=== PATIENT | male | born 1970 | race Caucasian/White ===

== ENCOUNTER 2020-07-19 16:39 | Inpatient (IN) | payer OTHER, MEDICAID ==
[~2020-07-19] VITALS: Ht 180.3 cm; Wt 72.5 kg
[2020-07-19] MEDS ORDERED: HYDROcodone/acetaminophen 5mg/325mg tablet PO ONE (17:20)
[2020-07-19] MEDS ORDERED: ondansetron 4mg rapidly disintigrating tab PO ONE (17:20)
--- NOTE | 2020-07-19 17:30 | NUR ---
US tech at bedside for study as ordered.
[2020-07-19 18:37] LABS: BASOPHILS # (AUTO) 0.1 X10'3 (0-0.2); BASOPHILS % (AUTO) 1.2 % (0-1); EOSINOPHILS # (AUTO) 0.2 X10'3 (0-0.9); HEMATOCRIT 40.6 % (42.0-52.0); LYMPHOCYTES # (AUTO) 2.6 X10'3 (1.1-4.8); LYMPHOCYTES % (AUTO) 22.1 % (21-51); MEAN CORPUSCULAR HEMOGLOBIN 33.3 PG (27.0-31.0); MEAN CORPUSCULAR HGB CONC 34.4 g/dL (33.0-36.5); MEAN CORPUSCULAR VOLUME 96.7 FL (78-98); MONOCYTES # (AUTO) 0.5 X10'3 (0-0.9); NEUTROPHILS # (AUTO) 8.3 X10'3 (1.8-7.7); NEUTROPHILS % (AUTO) 70.7 % (42-75); PLATELET COUNT 188 X10'3 (140-440); RED CELL DISTRIBUTION WIDTH 13.3 % (11.5-14.5); WHITE BLOOD COUNT 11.7 X10'3 (4.5-11.0)
[2020-07-19 18:49] LABS: PARTIAL THROMBOPLASTIN TIME 29 SECONDS (22-32)
[2020-07-19 18:54] LABS: ALANINE AMINOTRANSFERASE 37 U/L (12-78); ALBUMIN 3.9 G/DL (3.4-5.0); ALBUMIN/GLOBULIN RATIO 1.3 (1.1-1.5); ALKALINE PHOSPHATASE 68 IU/L (46-116); ANION GAP 14 (8-16); ASPARTATE AMINO TRANSFERASE 24 U/L (10-37); BILIRUBIN,TOTAL 0.4 MG/DL (0.1-1.0); BLOOD UREA NITROGEN 9 MG/DL (7-18); BUN/CREATININE RATIO 6.8 (5.4-32.0); CALCIUM 8.2 MG/DL (8.5-10.1); CHLORIDE 102 MMOL/L (99-107); CREATININE 1.33 MG/DL (0.60-1.10); GLUCOSE 87 MG/DL (70-104); POTASSIUM 3.4 MMOL/L (3.5-5.1); SODIUM 138 MMOL/L (135-145); TOTAL CARBON DIOXIDE 21.8 MMOL/L (24-32); eGFR 56 ML/MIN
[2020-07-19] MEDS ORDERED: APIX5TAB3 PO (19:28)
[2020-07-19] MEDS ORDERED: CLOP75TA35 PO (19:28)
[2020-07-19] MEDS ORDERED: CILO100T PO (19:30)
[2020-07-19] MEDS ORDERED: DILT180C87 PO (19:30)
[2020-07-19] MEDS ORDERED: ATOR40TA72 PO (19:30)
[2020-07-19] MEDS ORDERED: METO25TA6 PO (19:30)
--- NOTE | 2020-07-19 21:49 | NUR ---
Awaiting ipa. pt given food and pitcher of ice water. Pt to be NPO at MT per Primary RN Chase. Pt is pleasant and coopertative. bp 164/83, otherwise vss.
[2020-07-19] MEDS ORDERED: magnesium hydroxide 30ml (MOM) UD suspension PO PRN (22:50)
[2020-07-19] MEDS ORDERED: mag hydrox/Alum hydrox/simeth 30ml oral suspension PO PRN (22:50)
[2020-07-19] MEDS ORDERED: acetaminophen 325mg tablet PO PRN (22:50)
[2020-07-19] MEDS ORDERED: morphine 2 MG/ML inj. syringe IV PRN (22:50)
--- NOTE | 2020-07-19 23:06 | NUR ---
Pt given 2nd sandwich. He is aware he is to be NPO at midnight. VSS. 4 otu of 10 pain to the right lower leg.
[2020-07-19] MEDS: dextrose 5%-1/2 normal saline 1,000 ML IV SCH (23:07)
[2020-07-19] MEDS: HYDROcodone/acetaminophen 10/325mg tab PO PRN (23:15)
[2020-07-20] VITALS (8 sets, daily range): BP systolic 106–222; BP diastolic 77–133
--- NOTE | 2020-07-20 01:00 | NUR ---
Patient in room MED 310. I have received report from PERFUME AND TOILET WATER MAKER and had the opportunity to ask questions and assume patient care.
[2020-07-20] MEDS: ondansetron/PF 4mg/2ml inj IV PRN (01:08)
[2020-07-20] MEDS: dextrose 5%-1/2 normal saline 1,000 ML IV SCH ×2 (02:01→10:10)
[2020-07-20] MEDS: HYDROmorphone inj. 0.5 MG/0.5 ML DISP.SYRIN IV PRN ×2 (02:59→08:20)
--- NOTE | 2020-07-20 03:08 | NUR ---
PAGER ID: [phone] MESSAGE: [phone] Randy, Oni-BP 225/99 right arm, BP 217/91 left arm; home meds not converted, patient states he has not taken any BP meds x6 days, out of .medication-no prn meds for high SBP. Miracle ESCOBAR
[2020-07-20] MEDS: cloNIDine 0.1 mg tablet PO SCH (03:34)
[2020-07-20] MEDS: HYDROcodone/acetaminophen 10/325mg tab PO PRN ×2 (04:26→17:34)
[2020-07-20] MEDS: morphine 2 MG/ML inj. syringe IV PRN ×3 (05:50→15:02)
[2020-07-20] MEDS ORDERED: pneumococcal 23-VAL P-sac vacc 25 mcg/0.5ml vial IMVAC ONE (06:45)
[2020-07-20] MEDS ORDERED: FLU VACC QS2020-21(6MOS UP)/PF 60 MCG/0.5 ML SYRINGE IMVAC ONE (06:45)
[2020-07-20 07:59] LABS: BASOPHILS # (AUTO) 0.1 X10'3 (0-0.2); BASOPHILS % (AUTO) 1.2 % (0-1); EOSINOPHILS # (AUTO) 0.4 X10'3 (0-0.9); EOSINOPHILS % (AUTO) 5.3 % (0-6); HEMOGLOBIN 13.5 g/dl (14.0-17.9); LYMPHOCYTES # (AUTO) 3.3 X10'3 (1.1-4.8); LYMPHOCYTES % (AUTO) 39.7 % (21-51); MEAN CORPUSCULAR HGB CONC 34.7 g/dL (33.0-36.5); MEAN CORPUSCULAR VOLUME 98.1 FL (78-98); MEAN PLATELET VOLUME 8.4 FL (7.4-10.4); MONOCYTES # (AUTO) 0.5 X10'3 (0-0.9); MONOCYTES % (AUTO) 5.6 % (2-12); NEUTROPHILS % (AUTO) 48.2 % (42-75); PLATELET COUNT 162 X10'3 (140-440); RED BLOOD COUNT 3.98 X10'6 (4.70-6.10); RED CELL DISTRIBUTION WIDTH 13.6 % (11.5-14.5); WHITE BLOOD COUNT 8.4 X10'3 (4.5-11.0)
[2020-07-20] MEDS: docusate sod 100mg capsule PO SCH ×2 (08:00→20:00)
[2020-07-20 08:06] LABS: ALBUMIN 3.3 G/DL (3.4-5.0); ANION GAP 8 (8-16); BLOOD UREA NITROGEN 12 MG/DL (7-18); BUN/CREATININE RATIO 8.7 (5.4-32.0); CALCIUM 8.3 MG/DL (8.5-10.1); CHLORIDE 107 MMOL/L (99-107); CREATININE 1.38 MG/DL (0.60-1.10); GLUCOSE 109 MG/DL (70-104); POTASSIUM 3.7 MMOL/L (3.5-5.1); SODIUM 142 MMOL/L (135-145); TOTAL CARBON DIOXIDE 26.7 MMOL/L (24-32); eGFR 54 ML/MIN
--- NOTE | 2020-07-20 12:17 | NUR ---
pt negative covid
--- NOTE | 2020-07-20 14:22 | NUR ---
Patient in room MED 310. I have received report from MADELINE Montejo and had the opportunity to ask questions and assume patient care.
--- NOTE | 2020-07-20 14:29 | NUR ---
Problems reprioritized. Patient report given, questions answered & plan of care reviewed with Santino CORREA.
[2020-07-20] MEDS: ceFAZolin/D5W- 1GM premix 50 ML IV SCH (16:24)
[2020-07-20] MEDS ORDERED: LIDOcaine 1% (10mg/ml) 2ml vial ONE (17:51)
[2020-07-20] MEDS ORDERED: heparin 10,000 units/1 ML INJ ONE ×3 (18:13→19:56)
--- NOTE | 2020-07-20 18:39 | NUR ---
Problems reprioritized. Patient report given, questions answered & plan of care reviewed with MADELINE Rausch.
[2020-07-20] MEDS ORDERED: fentaNYL/PF 50MCG/1 ML 2ML syringe ONE ×4 (18:50→22:54)
[2020-07-20] MEDS ORDERED: midazolam 2 mg/2 ml injection ONE (18:50)
[2020-07-20] MEDS ORDERED: LIDOcaine 2% (20mg/ml) 5ml vial ONE (18:51)
[2020-07-20] MEDS ORDERED: propofol inj 20 ML IV ONE (18:51)
[2020-07-20] MEDS ORDERED: rocuronium 10mg/ml inj IV ONE ×3 (18:52→22:05)
--- NOTE | 2020-07-20 19:00 | NUR ---
Called JOURNEYMAN PIPE WELDER in regards to pre-op abx. Let Roro CORREA know that patient had received a dose of abx on day shift. She said to send a bag down with him to OR. Patient being transported to OR now.
--- NOTE | 2020-07-20 19:00 | NUR ---
PATIENT TO OR FOR THROMBECTOMY AT 1900-CONSENTS SIGNED, PREOP CHECKLIST FILLED OUT IN EMR LANETTE CORREA
[2020-07-20] MEDS ORDERED: ePHEDrine 50MG/ML INJ. ONE (19:10)
[2020-07-20] MEDS ORDERED: sevoflurane 250ml liquid IH ONE (19:10)
[2020-07-20] MEDS ORDERED: ceFAZolin 1000mg inj ONE ×3 (19:43→23:19)
[2020-07-20] MEDS ORDERED: albumin (Human) 5% 250ml 500 ML IV ONE (19:43)
[2020-07-20] MEDS ORDERED: albumin (Human) 5% 250ml 250 ML IV ONE ×4 (19:44→22:52)
[2020-07-20] MEDS ORDERED: dexamethasone sod phosphate 4mg/ml inj. ONE (19:46)
[2020-07-20] MEDS ORDERED: ondansetron/PF 4mg/2ml inj ONE (19:47)
[2020-07-20] MEDS ORDERED: ondansetron/PF 4mg/2ml inj IV PRN (20:10)
[2020-07-20] MEDS ORDERED: ringers solution, lacted 1,000 ML IV SCH (20:10)
[2020-07-20] MEDS ORDERED: morphine 4 MG/ML inj SYRINge IV PRN (20:10)
[2020-07-20] MEDS ORDERED: fentaNYL/PF 50MCG/1 ML 2ML syringe IV PRN ×2 (20:10)
[2020-07-20] MEDS ORDERED: hydrALAZINE 20mg/ml inj. IV PRN (20:10)
[2020-07-20] MEDS ORDERED: morphine 2 MG/ML inj. syringe IV PRN (20:10)
[2020-07-20] MEDS ORDERED: enalaprilat dihydrate 2.5mg/2ml vial IV PRN (20:10)
--- NOTE | 2020-07-20 20:45 | NUR ---
All patient belongings taken down to room 2009. Aurora CORREA aware
[2020-07-20] MEDS ORDERED: heparin 1,000unit/ml 10ml vial 10 ML ONE (22:50)
[2020-07-21] VITALS (19 sets, daily range): BP systolic 107–170; BP diastolic 65–84
[2020-07-21] MEDS: ceFAZolin/D5W- 1GM premix 50 ML IV SCH
[2020-07-21] MEDS ORDERED: ondansetron/PF 4mg/2ml inj IV PRN (00:25)
[2020-07-21] MEDS ORDERED: ringers solution, lacted 1,000 ML IV SCH (00:25)
[2020-07-21] MEDS ORDERED: FENTANYL-0.9 % NACL/PF 100 ML IV PRN (00:30)
[2020-07-21] MEDS ORDERED: MIDAZolam 5mg/5ml vial ONE (00:36)
[2020-07-21] MEDS ORDERED: fentaNYL/PF 50MCG/1 ML 2ML syringe ONE ×2 (00:37→02:00)
[2020-07-21] MEDS ORDERED: phenylephrine 10mg/ml inj. ONE (01:04)
[2020-07-21 01:07] LABS: ALBUMIN 3.3 G/DL (3.4-5.0); ANION GAP 11 (8-16); BLOOD UREA NITROGEN 10 MG/DL (7-18); BUN/CREATININE RATIO 7.7 (5.4-32.0); CALCIUM 7.8 MG/DL (8.5-10.1); CHLORIDE 112 MMOL/L (99-107); GLUCOSE 145 MG/DL (70-104); POTASSIUM 3.8 MMOL/L (3.5-5.1); SODIUM 145 MMOL/L (135-145); TOTAL CARBON DIOXIDE 22.1 MMOL/L (24-32); eGFR 58 ML/MIN
[2020-07-21] MEDS ORDERED: albumin (Human) 5% 250ml 250 ML IV ONE (01:08)
[2020-07-21 03:08] LABS: BASOPHILS % (AUTO) 0.3 % (0-1); EOSINOPHILS % (AUTO) 0.1 % (0-6); HEMATOCRIT 30.5 % (42.0-52.0); HEMOGLOBIN 10.3 g/dl (14.0-17.9); LYMPHOCYTES # (AUTO) 0.7 X10'3 (1.1-4.8); MEAN CORPUSCULAR HGB CONC 33.6 g/dL (33.0-36.5); MEAN CORPUSCULAR VOLUME 98.1 FL (78-98); MEAN PLATELET VOLUME 8.3 FL (7.4-10.4); MONOCYTES # (AUTO) 0.3 X10'3 (0-0.9); NEUTROPHILS # (AUTO) 13.4 X10'3 (1.8-7.7); NEUTROPHILS % (AUTO) 92.6 % (42-75); PLATELET COUNT 162 X10'3 (140-440); RED BLOOD COUNT 3.11 X10'6 (4.70-6.10); RED CELL DISTRIBUTION WIDTH 13.3 % (11.5-14.5); WHITE BLOOD COUNT 14.5 X10'3 (4.5-11.0)
[2020-07-21 03:20] LABS: ABG BASE EXCESS -4.6 mmol/L (-2.0-2.0); ABG HCO3 21.4 mmol/L (22.0-26.0); ABG OXYGEN SATURATION 98.4 % (94-97); ABG PO2 (T) 167.1 mmHg (75.0-100.0); FCOHb 0.3 % (0.0-3.9); FMetHb 0.1 % (0.0-1.5); PATIENT TEMPERATURE 35.9; PEEP 5 cm H2O; RESPIRATORY RATE 14 b/min; TIDAL VOLUME 600 mL; TOTAL HEMOGLOBIN 11.2 G/dl (14.0-18.0)
[2020-07-21 03:26] LABS: ALANINE AMINOTRANSFERASE 21 U/L (12-78); ALBUMIN 3.3 G/DL (3.4-5.0); ALBUMIN/GLOBULIN RATIO 1.8 (1.1-1.5); ALKALINE PHOSPHATASE 42 IU/L (46-116); ANION GAP 9 (8-16); ASPARTATE AMINO TRANSFERASE 20 U/L (10-37); BILIRUBIN,TOTAL 0.6 MG/DL (0.1-1.0); BLOOD UREA NITROGEN 9 MG/DL (7-18); BUN/CREATININE RATIO 7.2 (5.4-32.0); CALCIUM 7.6 MG/DL (8.5-10.1); CHLORIDE 113 MMOL/L (99-107); CREATININE 1.25 MG/DL (0.60-1.10); GLUCOSE 155 MG/DL (70-104); POTASSIUM 3.6 MMOL/L (3.5-5.1); SODIUM 145 MMOL/L (135-145); TOTAL CARBON DIOXIDE 23.1 MMOL/L (24-32); TOTAL PROTEIN 5.1 G/DL (6.4-8.2); eGFR 61 ML/MIN
[2020-07-21] MEDS: midazolam 100mg in NS 100ml 50 ML IV SCH (03:51)
[2020-07-21] MEDS: HYDROcodone/acetaminophen 10/325mg tab PO PRN (03:54)
[2020-07-21 06:48] LABS: PARTIAL THROMBOPLASTIN TIME 34 SECONDS (22-32)
[2020-07-21] MEDS: cloNIDine 0.1 mg tablet PO SCH (07:16)
[2020-07-21] MEDS: docusate sod 100mg capsule PO SCH ×2 (07:51→20:44)
[2020-07-21] MEDS: dextrose 5%-1/2 normal saline 1,000 ML IV SCH ×2 (10:06→14:50)
[2020-07-21] MEDS: vancomycin/NS 1 GM ADD-VANTAGE 250 ML IV SCH ×2 (10:19→20:53)
[2020-07-21] MEDS ORDERED: MESSAGE TO PHARMACY PO ONE (11:20)
[2020-07-21] MEDS ORDERED: dextrose ORAL solution 15 GM/59 ML bottle PO PRN ×2 (11:20)
[2020-07-21] MEDS ORDERED: insulin Lispro (HumaLOG) vial - multi-dose SQ SCH (11:20)
[2020-07-21] MEDS ORDERED: glucagon, human recombinant 1mg kit SUBCUT PRN (11:20)
[2020-07-21] MEDS ORDERED: dextrose 50%-water 50ml dispensing syringe IV PRN ×2 (11:20)
[2020-07-21 11:40] LABS: HEMOGLOBIN A1C 5.5 % (4.5-6.2)
[2020-07-21] MEDS ORDERED: naloxone 0.4 mg/ml inj IV PRN (13:15)
[2020-07-21] MEDS ORDERED: CADD PCA waste documentation MC PRN (13:15)
[2020-07-21] MEDS ORDERED: HYDROmorphone/NS 1 mg/ml CADD 50 ML IV SCH (13:15)
--- NOTE | 2020-07-21 14:00 | NUR ---
Patient extubated per MD order. tolerating well on 2L NC
[2020-07-21] MEDS ORDERED: hydrALAZINE 20mg/ml inj. IV PRN (16:00)
[2020-07-21] MEDS: metoprolol tartrate 25mg tablet PO SCH (16:07)
[2020-07-21] MEDS: HYDROcodone/acetaminophen 5mg/325mg tablet PO PRN (18:19)
[2020-07-21] MEDS: insulin glargine (Lantus) pen - multi-dose SQ SCH (21:00)
[2020-07-21] MEDS: morphine 2 MG/ML inj. syringe IV PRN (22:16)
--- NOTE | 2020-07-21 22:20 | NUR ---
one norco did not reduce pt's pain level below 5. pt again assessed for pain, now at 8. pt medicated with 2 mg morphine.
[2020-07-22] VITALS (24 sets, daily range): BP systolic 121–160; BP diastolic 59–105
[2020-07-22] MEDS: HYDROcodone/acetaminophen 10/325mg tab PO PRN ×5 (01:18→23:46)
--- NOTE | 2020-07-22 02:57 | NUR ---
drsg change performed to right leg incision. dry 4x4 to wayne with kerlix covering. pt complaining of pain still 8/10 medicated with norco 10/325
[2020-07-22 05:57] LABS: BASOPHILS # (AUTO) 0.1 X10'3 (0-0.2); BASOPHILS % (AUTO) 0.7 % (0-1); EOSINOPHILS # (AUTO) 0.3 X10'3 (0-0.9); EOSINOPHILS % (AUTO) 3.1 % (0-6); HEMATOCRIT 23.3 % (42.0-52.0); HEMOGLOBIN 8.1 g/dl (14.0-17.9); LYMPHOCYTES # (AUTO) 2.3 X10'3 (1.1-4.8); LYMPHOCYTES % (AUTO) 22.1 % (21-51); MEAN CORPUSCULAR HEMOGLOBIN 34.4 PG (27.0-31.0); MEAN CORPUSCULAR HGB CONC 34.8 g/dL (33.0-36.5); MEAN CORPUSCULAR VOLUME 98.7 FL (78-98); MEAN PLATELET VOLUME 8.5 FL (7.4-10.4); MONOCYTES # (AUTO) 0.6 X10'3 (0-0.9); MONOCYTES % (AUTO) 5.4 % (2-12); NEUTROPHILS # (AUTO) 7.3 X10'3 (1.8-7.7); NEUTROPHILS % (AUTO) 68.7 % (42-75); PLATELET COUNT 113 X10'3 (140-440); RED BLOOD COUNT 2.36 X10'6 (4.70-6.10); RED CELL DISTRIBUTION WIDTH 13.5 % (11.5-14.5); WHITE BLOOD COUNT 10.6 X10'3 (4.5-11.0)
[2020-07-22 06:05] LABS: ALBUMIN 2.8 G/DL (3.4-5.0); ANION GAP 7 (8-16); BLOOD UREA NITROGEN 11 MG/DL (7-18); BUN/CREATININE RATIO 8.5 (5.4-32.0); CALCIUM 7.9 MG/DL (8.5-10.1); CHLORIDE 112 MMOL/L (99-107); GLUCOSE 122 MG/DL (70-104); POTASSIUM 3.7 MMOL/L (3.5-5.1); SODIUM 145 MMOL/L (135-145); TOTAL CARBON DIOXIDE 26.3 MMOL/L (24-32); eGFR 58 ML/MIN
[2020-07-22] MEDS: cloNIDine 0.1 mg tablet PO SCH (07:22)
[2020-07-22] MEDS: midazolam 100mg in NS 100ml 50 ML IV SCH (07:23)
[2020-07-22] MEDS ORDERED: metoprolol tartrate 25mg tablet PO SCH (08:00)
[2020-07-22] MEDS: docusate sod 100mg capsule PO SCH ×2 (08:34→20:35)
[2020-07-22] MEDS: diltiazem CD 180mg cap (once-daily) PO SCH (08:34)
[2020-07-22] MEDS: apixaban 5mg tablet PO SCH ×2 (08:35→20:35)
[2020-07-22] MEDS: cilostazol 50mg tablet PO SCH ×2 (08:35→15:58)
[2020-07-22] MEDS: vancomycin/NS 1 GM ADD-VANTAGE 250 ML IV SCH ×2 (08:35→20:35)
[2020-07-22] MEDS: atorvastatin 20mg tablet PO SCH (08:35)
[2020-07-22] MEDS: clopidogrel 75mg tablet PO SCH ×2 (08:35→20:35)
[2020-07-22] MEDS: metoprolol tartrate 25mg tablet PO SCH ×2 (08:35→20:36)
[2020-07-22] MEDS: morphine 2 MG/ML inj. syringe IV PRN (09:47)
[2020-07-22] MEDS: ondansetron/PF 4mg/2ml inj IV PRN (15:25)
[2020-07-22] MEDS ORDERED: VANCOMYCIN LEVEL IV ONE (19:30)
[2020-07-22] MEDS: lactobacillus rhamnosus 10,000 MMU CELLS/CAPSULE PO SCH (20:36)
[2020-07-22] MEDS: insulin glargine (Lantus) pen - multi-dose SQ SCH (20:38)
[2020-07-23] VITALS (19 sets, daily range): BP systolic 96–166; BP diastolic 56–85
[2020-07-23 05:33] LABS: BASOPHILS % (AUTO) 0.4 % (0-1); EOSINOPHILS # (AUTO) 0.3 X10'3 (0-0.9); EOSINOPHILS % (AUTO) 3.4 % (0-6); HEMATOCRIT 24.6 % (42.0-52.0); HEMOGLOBIN 8.5 g/dl (14.0-17.9); LYMPHOCYTES # (AUTO) 2.1 X10'3 (1.1-4.8); LYMPHOCYTES % (AUTO) 22.2 % (21-51); MEAN CORPUSCULAR HEMOGLOBIN 33.9 PG (27.0-31.0); MEAN CORPUSCULAR HGB CONC 34.6 g/dL (33.0-36.5); MEAN PLATELET VOLUME 8.4 FL (7.4-10.4); MONOCYTES # (AUTO) 0.7 X10'3 (0-0.9); NEUTROPHILS # (AUTO) 6.5 X10'3 (1.8-7.7); PLATELET COUNT 130 X10'3 (140-440); RED BLOOD COUNT 2.51 X10'6 (4.70-6.10); RED CELL DISTRIBUTION WIDTH 13.3 % (11.5-14.5); WHITE BLOOD COUNT 9.7 X10'3 (4.5-11.0)
[2020-07-23 05:55] LABS: ANION GAP 6 (8-16); BLOOD UREA NITROGEN 10 MG/DL (7-18); BUN/CREATININE RATIO 8.1 (5.4-32.0); CALCIUM 8.6 MG/DL (8.5-10.1); CHLORIDE 109 MMOL/L (99-107); CREATININE 1.23 MG/DL (0.60-1.10); GLUCOSE 112 MG/DL (70-104); POTASSIUM 3.4 MMOL/L (3.5-5.1); SODIUM 144 MMOL/L (135-145); TOTAL CARBON DIOXIDE 29.5 MMOL/L (24-32); eGFR 62 ML/MIN
[2020-07-23] MEDS: midazolam 100mg in NS 100ml 50 ML IV SCH (06:45)
[2020-07-23] MEDS: cloNIDine 0.1 mg tablet PO SCH (06:46)
[2020-07-23] MEDS: metoprolol tartrate 25mg tablet PO SCH ×2 (07:12→19:58)
[2020-07-23] MEDS: diltiazem CD 180mg cap (once-daily) PO SCH (07:12)
[2020-07-23] MEDS: apixaban 5mg tablet PO SCH ×2 (07:12→19:57)
[2020-07-23] MEDS: HYDROcodone/acetaminophen 5mg/325mg tablet PO PRN ×2 (07:12→14:56)
[2020-07-23] MEDS: clopidogrel 75mg tablet PO SCH ×2 (07:13→19:58)
[2020-07-23] MEDS: lactobacillus rhamnosus 10,000 MMU CELLS/CAPSULE PO SCH ×2 (07:13→19:58)
[2020-07-23] MEDS: cilostazol 50mg tablet PO SCH ×2 (07:13→16:04)
[2020-07-23] MEDS: docusate sod 100mg capsule PO SCH ×2 (07:13→19:57)
[2020-07-23] MEDS: atorvastatin 20mg tablet PO SCH (07:13)
[2020-07-23] MEDS: vancomycin/NS 1 GM ADD-VANTAGE 250 ML IV SCH (07:13)
[2020-07-23] MEDS: HYDROcodone/acetaminophen 10/325mg tab PO PRN ×2 (10:30→21:32)
[2020-07-23] MEDS: K and/or MAG REPLACEMENT MC SCH (10:50)
[2020-07-23] MEDS ORDERED: potassium Cl 20 mEq SR tablet PO PRN (10:50)
--- NOTE | 2020-07-23 11:42 | NUR ---
Initial: Pt admit DX RLE occluded graft and hematoma s/p R iliac and distal graft per EMR. PO 100% heart healthy diet at this time per RN; pending PO meal documentation this admit none noted past 3 days. LBM 07/19 and started on routine colace for past 2 days. Will monitor for additional protein needs pending further PO hx as well as additional bowel care needs post-op. Rec: 1. continue heart healthy diet 2. monitor for ONS needs pending PO hx 3. routine bowel care; consider opioid antagonist if continues to receive opiates post-op 4. wt per rx Addendum: 07/23/20 at [address] Amended: Links added.
[2020-07-23] MEDS: potassium Cl 20 mEq SR tablet PO PRN ×2 (12:27→16:04)
[2020-07-23] MEDS: morphine 2 MG/ML inj. syringe IV PRN (13:47)
--- NOTE | 2020-07-23 17:22 | NUR ---
PT ARRIVED TO THE FLOOR AT 1720. ICU NURSE STATES THAT BRISA FROM WOUND CARE IS TRYING TO GET A HOLD OF DR BOSWELL FOR AN ORDER FOR THE WOUND VAC. IT HAS CURRENTLY BEEN SET AT 75 BY WOUND CARE NURSE.
--- NOTE | 2020-07-23 17:34 | NUR ---
REPORT TO SYED CORREA. PT TRANSPORTED VIA WHEELCHAIR TO [facility].
--- NOTE | 2020-07-23 17:35 | NUR ---
ICU NURSE CALLED AND VERIFIED AN ORDER FROM DR BOSWELL FOR W/V SETTINGS. SHE WILL PUT ORDER IN
--- NOTE | 2020-07-23 18:05 | NUR ---
Problems reprioritized. Patient report given, questions answered & plan of care reviewed with TAMMI CORREA.
[2020-07-23] MEDS: insulin glargine (Lantus) pen - multi-dose SQ SCH (21:00)
[2020-07-23] MEDS: VANCOmycin 1250MG/NS 250ml Bag 250 ML IV SCH (21:25)
[2020-07-24] VITALS: BP 138/74
[2020-07-24] MEDS: cloNIDine 0.1 mg tablet PO SCH (03:25)
[2020-07-24 06:10] LABS: BASOPHILS % (AUTO) 0.4 % (0-1); EOSINOPHILS # (AUTO) 0.5 X10'3 (0-0.9); EOSINOPHILS % (AUTO) 4.3 % (0-6); HEMATOCRIT 25.9 % (42.0-52.0); HEMOGLOBIN 8.8 g/dl (14.0-17.9); LYMPHOCYTES # (AUTO) 2.9 X10'3 (1.1-4.8); LYMPHOCYTES % (AUTO) 23.4 % (21-51); MEAN CORPUSCULAR HEMOGLOBIN 33.2 PG (27.0-31.0); MEAN CORPUSCULAR HGB CONC 33.9 g/dL (33.0-36.5); MEAN CORPUSCULAR VOLUME 97.9 FL (78-98); MEAN PLATELET VOLUME 8.4 FL (7.4-10.4); MONOCYTES # (AUTO) 0.7 X10'3 (0-0.9); MONOCYTES % (AUTO) 5.6 % (2-12); NEUTROPHILS # (AUTO) 8.1 X10'3 (1.8-7.7); NEUTROPHILS % (AUTO) 66.3 % (42-75); PLATELET COUNT 174 X10'3 (140-440); RED BLOOD COUNT 2.65 X10'6 (4.70-6.10); RED CELL DISTRIBUTION WIDTH 13.2 % (11.5-14.5); WHITE BLOOD COUNT 12.2 X10'3 (4.5-11.0)
[2020-07-24 06:28] LABS: ALBUMIN 3.1 G/DL (3.4-5.0); ANION GAP 10 (8-16); BLOOD UREA NITROGEN 11 MG/DL (7-18); CHLORIDE 107 MMOL/L (99-107); CREATININE 1.37 MG/DL (0.60-1.10); GLUCOSE 107 MG/DL (70-104); MAGNESIUM 1.6 MG/DL (1.5-2.4); POTASSIUM 3.9 MMOL/L (3.5-5.1); SODIUM 144 MMOL/L (135-145); TOTAL CARBON DIOXIDE 27.1 MMOL/L (24-32); eGFR 55 ML/MIN
--- NOTE | 2020-07-24 06:34 | NUR ---
Patient in room BRITNI 360. I have received report from MADELINE Pratt and had the opportunity to ask questions and assume patient care.
[2020-07-24 07:30] VITALS: BP 133/83
[2020-07-24] MEDS: lactobacillus rhamnosus 10,000 MMU CELLS/CAPSULE PO SCH ×2 (07:46→19:25)
[2020-07-24] MEDS: clopidogrel 75mg tablet PO SCH ×2 (07:46→19:25)
[2020-07-24] MEDS: cilostazol 50mg tablet PO SCH ×2 (07:46→17:23)
[2020-07-24] MEDS: metoprolol tartrate 25mg tablet PO SCH ×2 (07:46→19:26)
[2020-07-24] MEDS: docusate sod 100mg capsule PO SCH ×2 (07:46→19:25)
[2020-07-24] MEDS: atorvastatin 20mg tablet PO SCH (07:47)
[2020-07-24] MEDS: diltiazem CD 180mg cap (once-daily) PO SCH (07:47)
[2020-07-24] MEDS: apixaban 5mg tablet PO SCH ×2 (07:47→19:25)
[2020-07-24] MEDS: K and/or MAG REPLACEMENT MC SCH (08:00)
[2020-07-24] MEDS: VANCOmycin 1250MG/NS 250ml Bag 250 ML IV SCH ×2 (09:01→19:27)
[2020-07-24 11:00] VITALS: BP 127/64
[2020-07-24] MEDS: magnesium hydroxide 30ml (MOM) UD suspension PO SCH ×2 (13:08→19:31)
[2020-07-24] MEDS: HYDROcodone/acetaminophen 10/325mg tab PO PRN (13:54)
[2020-07-24 18:00] VITALS: BP 119/67
--- NOTE | 2020-07-24 18:11 | NUR ---
Problems reprioritized. Patient report given, questions answered & plan of care reviewed with MADELINE Palm.
[2020-07-24] MEDS: insulin glargine (Lantus) pen - multi-dose SQ SCH (21:00)
[2020-07-25] VITALS: BP 135/72
[2020-07-25] MEDS: cloNIDine 0.1 mg tablet PO SCH (03:25)
--- NOTE | 2020-07-25 06:26 | NUR ---
Patient in room BRITNI 360. I have received report from MADELINE Pratt and had the opportunity to ask questions and assume patient care.
[2020-07-25 07:00] VITALS: BP 123/75
[2020-07-25] MEDS ORDERED: VANCOMYCIN LEVEL IV ONE (07:30)
[2020-07-25] MEDS: docusate sod 100mg capsule PO SCH ×2 (07:47→20:10)
[2020-07-25] MEDS: VANCOmycin 1250MG/NS 250ml Bag 250 ML IV SCH ×2 (07:47→21:08)
[2020-07-25] MEDS: metoprolol tartrate 25mg tablet PO SCH ×2 (07:48→20:09)
[2020-07-25] MEDS: magnesium hydroxide 30ml (MOM) UD suspension PO SCH ×2 (07:48→20:00)
[2020-07-25] MEDS: diltiazem CD 180mg cap (once-daily) PO SCH (07:48)
[2020-07-25] MEDS: lactobacillus rhamnosus 10,000 MMU CELLS/CAPSULE PO SCH ×2 (07:48→20:08)
[2020-07-25] MEDS: clopidogrel 75mg tablet PO SCH ×2 (07:48→20:09)
[2020-07-25] MEDS: apixaban 5mg tablet PO SCH ×2 (07:48→20:09)
[2020-07-25] MEDS: atorvastatin 20mg tablet PO SCH (07:48)
[2020-07-25] MEDS: cilostazol 50mg tablet PO SCH ×2 (07:48→17:09)
[2020-07-25 08:22] LABS: MAGNESIUM 1.6 MG/DL (1.5-2.4); POTASSIUM 3.8 MMOL/L (3.5-5.1); VANCOMYCIN,TROUGH 15.1 UG/ML (6.0-14.0)
[2020-07-25] MEDS: HYDROcodone/acetaminophen 10/325mg tab PO PRN (09:24)
[2020-07-25] MEDS: morphine 2 MG/ML inj. syringe IV PRN (09:39)
[2020-07-25 12:00] VITALS: BP 121/67
[2020-07-25] MEDS: acetaminophen 325mg tablet PO PRN ×2 (12:25→20:08)
--- NOTE | 2020-07-25 15:56 | NUR ---
WOUND INFECTION EDUCATION PROVIDED BY WOUND CARE 1. Patient instructed to call their primary doctor, or go the ED immediately if any of the following symptoms occur: * Increased pain in wound * Increase in drainage from the wound * Redness in the skin surrounding the wound * Warmth in the skin surrounding the wound * Bleeding from the wound * Temperature of 101 or greater 2. If any of these occur while in the hospital tell a nurse immediately. WOUND VAC EDUCATION PROVIDED BY WOUND CARE 1. Patient instructed to call the Wound Center or their Home Health Agency immediately if: * They notice a change in the color or amount of the fluid in the canister. * Their wound looks more red than usual or has a foul smell. * The skin around their wound looks reddened or irritated. * The dressing feels loose or appears to be loose. * They experience any increase or changes in their pain. * The alarm will not turn off. 2. Patient instructed that they should not be disconnected from suction for more than 2 hours at a time. * If they are not able to get the suction back on, they need to remove the dressing and take all of the foam out of the wound. * Then moisten sterile gauze with normal saline and place on/in the wound. * Change the dressing once a day until arrangements have been made to replace the wound vac dressing. 3. Patient instructed to turn the wound vac machine OFF and call 911 or go to the ED immediately if their canister fills rapidly with blood. 4. If any of these occur while in the hospital tell a nurse immediately. Addendum: 07/25/20 at 1556 by Sadaf Cha RN Amended: Links added.
--- NOTE | 2020-07-25 18:34 | NUR ---
Problems reprioritized. Patient report given, questions answered & plan of care reviewed with MADELINE Murcia.
--- NOTE | 2020-07-25 18:38 | NUR ---
Patient in room BRITNI 360. I have received report from JANET CORREA and had the opportunity to ask questions and assume patient care.
[2020-07-25 19:58] VITALS: BP 116/62
[2020-07-25] MEDS: K and/or MAG REPLACEMENT MC SCH (20:00)
[2020-07-25] MEDS: insulin glargine (Lantus) pen - multi-dose SQ SCH (21:00)
[2020-07-25 21:43] LABS: CLARITY,URINE CLEAR (Clear); COLOR,URINE YELLOW (Yellow); GLUCOSE, URINE NEGATIVE (Neg); KETONES,URINE NEGATIVE (Neg); NITRITES, URINE NEGATIVE (Neg); OCCULT BLOOD,URINE NEGATIVE (Neg); PROTEIN,URINE NEGATIVE (Neg); UROBILINOGEN,URINE 0.2 E.U/dL (0.2-1.0)
[2020-07-25 21:46] LABS: LEUKOCYTE ESTERASE ,URINE NEGATIVE (Neg); UA COLLECTION TYPE CLN CATCH MIDSTREAM
[2020-07-26] VITALS: BP 103/62
[2020-07-26] MEDS: cloNIDine 0.1 mg tablet PO SCH (03:25)
[2020-07-26 05:18] LABS: MAGNESIUM 1.9 MG/DL (1.5-2.4); POTASSIUM 3.7 MMOL/L (3.5-5.1)
--- NOTE | 2020-07-26 06:16 | NUR ---
Problems reprioritized. Patient report given, questions answered & plan of care reviewed with ALKA CORREA.
--- NOTE | 2020-07-26 06:19 | NUR ---
Patient in room BRITNI 360. I have received report from Radha Garcia RN and had the opportunity to ask questions and assume patient care. Patient resting with eyes closed wound vac shows no leaks
[2020-07-26 07:00] VITALS: BP 109/65
[2020-07-26] MEDS: docusate sod 100mg capsule PO SCH ×2 (08:00→21:22)
[2020-07-26] MEDS: magnesium hydroxide 30ml (MOM) UD suspension PO SCH ×2 (08:00→20:00)
[2020-07-26] MEDS: K and/or MAG REPLACEMENT MC SCH (08:00)
[2020-07-26] MEDS: metoprolol tartrate 25mg tablet PO SCH ×2 (09:04→21:22)
[2020-07-26] MEDS: diltiazem CD 180mg cap (once-daily) PO SCH (09:04)
[2020-07-26] MEDS: clopidogrel 75mg tablet PO SCH ×2 (09:05→21:20)
[2020-07-26] MEDS: atorvastatin 20mg tablet PO SCH (09:05)
[2020-07-26] MEDS: lactobacillus rhamnosus 10,000 MMU CELLS/CAPSULE PO SCH ×2 (09:05→21:20)
[2020-07-26] MEDS: apixaban 5mg tablet PO SCH ×2 (09:05→21:24)
[2020-07-26] MEDS: cilostazol 50mg tablet PO SCH ×2 (09:05→17:17)
[2020-07-26] MEDS: cefepime 1GM/NS ADD-VANTAGE 100 ML IV SCH ×2 (09:06→15:50)
[2020-07-26 09:14] LABS: BASOPHILS % (AUTO) 0.2 % (0-1); EOSINOPHILS # (AUTO) 0.5 X10'3 (0-0.9); EOSINOPHILS % (AUTO) 3.2 % (0-6); HEMATOCRIT 22.3 % (42.0-52.0); HEMOGLOBIN 7.7 g/dl (14.0-17.9); LYMPHOCYTES # (AUTO) 1.3 X10'3 (1.1-4.8); LYMPHOCYTES % (AUTO) 9.2 % (21-51); MEAN CORPUSCULAR HEMOGLOBIN 33.1 PG (27.0-31.0); MEAN CORPUSCULAR HGB CONC 34.4 g/dL (33.0-36.5); MEAN CORPUSCULAR VOLUME 96.5 FL (78-98); MEAN PLATELET VOLUME 7.8 FL (7.4-10.4); MONOCYTES # (AUTO) 0.8 X10'3 (0-0.9); MONOCYTES % (AUTO) 5.8 % (2-12); NEUTROPHILS # (AUTO) 11.6 X10'3 (1.8-7.7); NEUTROPHILS % (AUTO) 81.6 % (42-75); PLATELET COUNT 225 X10'3 (140-440); RED BLOOD COUNT 2.32 X10'6 (4.70-6.10); WHITE BLOOD COUNT 14.2 X10'3 (4.5-11.0)
[2020-07-26 09:27] LABS: ALBUMIN 2.7 G/DL (3.4-5.0); ANION GAP 12 (8-16); BLOOD UREA NITROGEN 19 MG/DL (7-18); BUN/CREATININE RATIO 12.8 (5.4-32.0); CALCIUM 8.6 MG/DL (8.5-10.1); CHLORIDE 102 MMOL/L (99-107); CREATININE 1.48 MG/DL (0.60-1.10); GLUCOSE 158 MG/DL (70-104); POTASSIUM 3.7 MMOL/L (3.5-5.1); SODIUM 139 MMOL/L (135-145); TOTAL CARBON DIOXIDE 24.9 MMOL/L (24-32); eGFR 50 ML/MIN
[2020-07-26 11:00] VITALS: BP 111/66
[2020-07-26] MEDS: VANCOmycin 1250MG/NS 250ml Bag 250 ML IV SCH ×2 (11:38→21:22)
[2020-07-26 18:00] VITALS: BP 106/66
--- NOTE | 2020-07-26 19:10 | NUR ---
Problems reprioritized. Patient report given, questions answered & plan of care reviewed with Radha Garcia RN.
--- NOTE | 2020-07-26 19:11 | NUR ---
Patient in room BRITNI 360. I have received report from ALKA CORREA and had the opportunity to ask questions and assume patient care.
[2020-07-26] MEDS: insulin glargine (Lantus) pen - multi-dose SQ SCH (21:00)
[2020-07-27] VITALS: BP 110/56
[2020-07-27] MEDS: cefepime 1GM/NS ADD-VANTAGE 100 ML IV SCH ×4 (00:30→17:28)
[2020-07-27] MEDS: cloNIDine 0.1 mg tablet PO SCH (03:25)
[2020-07-27 05:34] LABS: ALANINE AMINOTRANSFERASE 32 U/L (12-78); ALBUMIN 2.6 G/DL (3.4-5.0); ALBUMIN/GLOBULIN RATIO 0.7 (1.1-1.5); ALKALINE PHOSPHATASE 49 IU/L (46-116); ANION GAP 11 (8-16); ASPARTATE AMINO TRANSFERASE 27 U/L (10-37); BILIRUBIN,TOTAL 0.4 MG/DL (0.1-1.0); BLOOD UREA NITROGEN 24 MG/DL (7-18); BUN/CREATININE RATIO 15.8 (5.4-32.0); CALCIUM 8.5 MG/DL (8.5-10.1); CHLORIDE 106 MMOL/L (99-107); CREATININE 1.52 MG/DL (0.60-1.10); GLUCOSE 121 MG/DL (70-104); MAGNESIUM 1.9 MG/DL (1.5-2.4); POTASSIUM 3.8 MMOL/L (3.5-5.1); SODIUM 141 MMOL/L (135-145); TOTAL CARBON DIOXIDE 24.2 MMOL/L (24-32); TOTAL PROTEIN 6.2 G/DL (6.4-8.2); eGFR 48 ML/MIN
--- NOTE | 2020-07-27 06:30 | NUR ---
Problems reprioritized. Patient report given, questions answered & plan of care reviewed with GLORIA CORREA.
[2020-07-27 07:00] VITALS: BP 133/78
[2020-07-27] MEDS: docusate sod 100mg capsule PO SCH ×2 (07:23→20:23)
[2020-07-27] MEDS: clopidogrel 75mg tablet PO SCH ×2 (07:23→20:23)
[2020-07-27] MEDS: lactobacillus rhamnosus 10,000 MMU CELLS/CAPSULE PO SCH ×2 (07:24→20:24)
[2020-07-27] MEDS: atorvastatin 20mg tablet PO SCH (07:24)
[2020-07-27] MEDS: apixaban 5mg tablet PO SCH ×2 (07:24→20:24)
[2020-07-27] MEDS: metoprolol tartrate 25mg tablet PO SCH ×2 (07:24→20:24)
[2020-07-27] MEDS: cilostazol 50mg tablet PO SCH ×2 (07:25→16:24)
[2020-07-27] MEDS: diltiazem CD 180mg cap (once-daily) PO SCH (07:27)
[2020-07-27] MEDS: magnesium hydroxide 30ml (MOM) UD suspension PO SCH ×2 (08:00→20:00)
[2020-07-27 08:28] LABS: BASOPHILS # (AUTO) 0.1 X10'3 (0-0.2); BASOPHILS % (AUTO) 0.5 % (0-1); EOSINOPHILS # (AUTO) 0.7 X10'3 (0-0.9); EOSINOPHILS % (AUTO) 6.3 % (0-6); HEMATOCRIT 22.2 % (42.0-52.0); HEMOGLOBIN 7.7 g/dl (14.0-17.9); LYMPHOCYTES # (AUTO) 0.9 X10'3 (1.1-4.8); LYMPHOCYTES % (AUTO) 8.9 % (21-51); MEAN CORPUSCULAR HEMOGLOBIN 33.7 PG (27.0-31.0); MEAN CORPUSCULAR HGB CONC 34.7 g/dL (33.0-36.5); MEAN CORPUSCULAR VOLUME 97.1 FL (78-98); MEAN PLATELET VOLUME 8.1 FL (7.4-10.4); MONOCYTES # (AUTO) 0.9 X10'3 (0-0.9); MONOCYTES % (AUTO) 8.4 % (2-12); NEUTROPHILS # (AUTO) 7.9 X10'3 (1.8-7.7); NEUTROPHILS % (AUTO) 75.9 % (42-75); PLATELET COUNT 245 X10'3 (140-440); RED BLOOD COUNT 2.29 X10'6 (4.70-6.10); RED CELL DISTRIBUTION WIDTH 13.1 % (11.5-14.5); WHITE BLOOD COUNT 10.4 X10'3 (4.5-11.0)
[2020-07-27] MEDS: VANCOmycin 1250MG/NS 250ml Bag 250 ML IV SCH ×2 (08:46→20:30)
--- NOTE | 2020-07-27 10:29 | NUR ---
S/L PATIENT AFTER VANCO WAS DONE.
--- NOTE | 2020-07-27 12:42 | NUR ---
Reassessment: Pt continues on heart healthy diet with mostly 100% PO intake throughout LOS. D/w dietary to send double protein TID for satiety. LB 07/26. Pt receiving routine bowel care as well as prune juice TID per diet order. Will continue to follow and monitor need for further nutrition intervention. Rec: 1. continue heart healthy diet 2. Double eggs q breakfast; double meat BIDLD 3. routine bowel care; prune juice TID per diet order 4. scaled wts per rx Addendum: 07/27/20 at [address] Amended: Links added.
[2020-07-27 14:06] VITALS: BP 118/61
[2020-07-27 18:00] VITALS: BP 121/69
--- NOTE | 2020-07-27 18:21 | NUR ---
Problems reprioritized. Patient report given, questions answered & plan of care reviewed with RADHA GARCIA RN.
--- NOTE | 2020-07-27 18:30 | NUR ---
Patient in room BRITNI 360. I have received report from GLORIA CORREA and had the opportunity to ask questions and assume patient care.
[2020-07-27] MEDS: insulin glargine (Lantus) pen - multi-dose SQ SCH (20:36)
[2020-07-28] VITALS: BP 116/59
[2020-07-28] MEDS: cefepime 1GM/NS ADD-VANTAGE 100 ML IV SCH ×2 (00:31→07:33)
[2020-07-28] MEDS: cloNIDine 0.1 mg tablet PO SCH (03:25)
[2020-07-28 04:51] LABS: BASOPHILS % (AUTO) 0.5 % (0-1); EOSINOPHILS # (AUTO) 0.8 X10'3 (0-0.9); EOSINOPHILS % (AUTO) 9.4 % (0-6); HEMATOCRIT 22.6 % (42.0-52.0); HEMOGLOBIN 7.9 g/dl (14.0-17.9); LYMPHOCYTES # (AUTO) 0.9 X10'3 (1.1-4.8); LYMPHOCYTES % (AUTO) 10.2 % (21-51); MEAN CORPUSCULAR HEMOGLOBIN 33.4 PG (27.0-31.0); MEAN CORPUSCULAR HGB CONC 34.9 g/dL (33.0-36.5); MEAN CORPUSCULAR VOLUME 95.7 FL (78-98); MEAN PLATELET VOLUME 7.7 FL (7.4-10.4); MONOCYTES # (AUTO) 0.9 X10'3 (0-0.9); MONOCYTES % (AUTO) 10.4 % (2-12); NEUTROPHILS # (AUTO) 6.3 X10'3 (1.8-7.7); NEUTROPHILS % (AUTO) 69.5 % (42-75); PLATELET COUNT 295 X10'3 (140-440); RED BLOOD COUNT 2.36 X10'6 (4.70-6.10); RED CELL DISTRIBUTION WIDTH 13.2 % (11.5-14.5)
[2020-07-28 05:13] LABS: ALANINE AMINOTRANSFERASE 38 U/L (12-78); ALBUMIN 2.7 G/DL (3.4-5.0); ALBUMIN/GLOBULIN RATIO 0.7 (1.1-1.5); ALKALINE PHOSPHATASE 56 IU/L (46-116); ANION GAP 12 (8-16); ASPARTATE AMINO TRANSFERASE 20 U/L (10-37); BILIRUBIN,TOTAL 0.4 MG/DL (0.1-1.0); BLOOD UREA NITROGEN 23 MG/DL (7-18); BUN/CREATININE RATIO 15.3 (5.4-32.0); CALCIUM 8.4 MG/DL (8.5-10.1); CHLORIDE 107 MMOL/L (99-107); GLUCOSE 116 MG/DL (70-104); MAGNESIUM 1.7 MG/DL (1.5-2.4); POTASSIUM 3.8 MMOL/L (3.5-5.1); SODIUM 142 MMOL/L (135-145); TOTAL CARBON DIOXIDE 23.5 MMOL/L (24-32); TOTAL PROTEIN 6.4 G/DL (6.4-8.2); eGFR 49 ML/MIN
[2020-07-28 07:00] VITALS: BP 122/75
--- NOTE | 2020-07-28 07:02 | NUR ---
Patient in room BRITNI 360B. I have received report from RADHA GARCIA RN and had the opportunity to ask questions and assume patient care.
[2020-07-28] MEDS: cilostazol 50mg tablet PO SCH ×2 (07:33→16:46)
[2020-07-28] MEDS: diltiazem CD 180mg cap (once-daily) PO SCH (07:34)
[2020-07-28] MEDS: clopidogrel 75mg tablet PO SCH ×2 (07:34→21:12)
[2020-07-28] MEDS: lactobacillus rhamnosus 10,000 MMU CELLS/CAPSULE PO SCH ×2 (07:34→21:12)
[2020-07-28] MEDS: metoprolol tartrate 25mg tablet PO SCH ×2 (07:34→21:13)
[2020-07-28] MEDS: apixaban 5mg tablet PO SCH ×2 (07:34→21:13)
[2020-07-28] MEDS: atorvastatin 20mg tablet PO SCH (07:34)
[2020-07-28] MEDS: magnesium hydroxide 30ml (MOM) UD suspension PO SCH (07:35)
[2020-07-28] MEDS: docusate sod 100mg capsule PO SCH ×2 (07:35→21:12)
[2020-07-28] MEDS: VANCOmycin 1250MG/NS 250ml Bag 250 ML IV SCH (08:39)
[2020-07-28 11:00] VITALS: BP 126/72
[2020-07-28] MEDS ORDERED: cephalexin 250mg capsule PO SCH (14:00)
[2020-07-28] MEDS: amox tr/potassium clavulanate 875/125mg TAB PO SCH (16:46)
[2020-07-28] MEDS ORDERED: magnesium hydroxide 30ml (MOM) UD suspension PO PRN (17:05)
[2020-07-28 18:30] VITALS: BP 134/75
--- NOTE | 2020-07-28 18:44 | NUR ---
Patient in room BRITNI 360. I have received report from MADELINE Malave and had the opportunity to ask questions and assume patient care.
--- NOTE | 2020-07-28 18:46 | NUR ---
Problems reprioritized. Patient report given, questions answered & plan of care reviewed with MADELINE RENO.
[2020-07-29] VITALS: BP 110/60
[2020-07-29 05:48] LABS: HEMOGLOBIN 8.8 g/dl (14.0-17.9)
[2020-07-29 05:52] LABS: BASOPHILS # (AUTO) 0.1 X10'3 (0-0.2); BASOPHILS % (AUTO) 0.7 % (0-1); EOSINOPHILS # (AUTO) 1.2 X10'3 (0-0.9); EOSINOPHILS % (AUTO) 11.6 % (0-6); HEMATOCRIT 24.8 % (42.0-52.0); LYMPHOCYTES # (AUTO) 1.7 X10'3 (1.1-4.8); LYMPHOCYTES % (AUTO) 17.5 % (21-51); MEAN CORPUSCULAR HEMOGLOBIN 34.1 PG (27.0-31.0); MEAN CORPUSCULAR HGB CONC 35.4 g/dL (33.0-36.5); MEAN CORPUSCULAR VOLUME 96.5 FL (78-98); MEAN PLATELET VOLUME 7.5 FL (7.4-10.4); MONOCYTES % (AUTO) 10.3 % (2-12); NEUTROPHILS % (AUTO) 59.9 % (42-75); PLATELET COUNT 369 X10'3 (140-440); RED BLOOD COUNT 2.57 X10'6 (4.70-6.10); RED CELL DISTRIBUTION WIDTH 13.6 % (11.5-14.5)
[2020-07-29 06:05] LABS: ALANINE AMINOTRANSFERASE 42 U/L (12-78); ALBUMIN/GLOBULIN RATIO 0.8 (1.1-1.5); ALKALINE PHOSPHATASE 62 IU/L (46-116); ANION GAP 11 (8-16); ASPARTATE AMINO TRANSFERASE 19 U/L (10-37); BILIRUBIN,TOTAL 0.4 MG/DL (0.1-1.0); BLOOD UREA NITROGEN 22 MG/DL (7-18); BUN/CREATININE RATIO 14.4 (5.4-32.0); CALCIUM 8.9 MG/DL (8.5-10.1); CHLORIDE 109 MMOL/L (99-107); CREATININE 1.53 MG/DL (0.60-1.10); GLUCOSE 116 MG/DL (70-104); POTASSIUM 3.8 MMOL/L (3.5-5.1); SODIUM 144 MMOL/L (135-145); TOTAL CARBON DIOXIDE 24.3 MMOL/L (24-32); TOTAL PROTEIN 6.9 G/DL (6.4-8.2); eGFR 48 ML/MIN
--- NOTE | 2020-07-29 06:26 | NUR ---
Problems reprioritized. Patient report given, questions answered & plan of care reviewed with MADELINE Mcguire.
--- NOTE | 2020-07-29 06:46 | NUR ---
Patient in room BRITNI 360. I have received report from Epifanio CORREA and had the opportunity to ask questions and assume patient care.
[2020-07-29 07:00] VITALS: BP 124/75
[2020-07-29 07:43] LABS: TOTAL CELLS COUNTED 100
[2020-07-29 07:46] LABS: PLATELET ESTIMATE NORMAL; POLYCHROMASIA FEW
[2020-07-29] MEDS: lactobacillus rhamnosus 10,000 MMU CELLS/CAPSULE PO SCH (08:29)
[2020-07-29] MEDS: apixaban 5mg tablet PO SCH (08:29)
[2020-07-29] MEDS: docusate sod 100mg capsule PO SCH (08:29)
[2020-07-29] MEDS: diltiazem CD 180mg cap (once-daily) PO SCH (08:29)
[2020-07-29] MEDS: atorvastatin 20mg tablet PO SCH (08:30)
[2020-07-29] MEDS: metoprolol tartrate 25mg tablet PO SCH (08:30)
[2020-07-29] MEDS: clopidogrel 75mg tablet PO SCH (08:30)
[2020-07-29] MEDS: amox tr/potassium clavulanate 875/125mg TAB PO SCH ×2 (08:31→15:50)
[2020-07-29] MEDS: cilostazol 50mg tablet PO SCH ×2 (08:32→15:50)
[2020-07-29 11:00] VITALS: BP 164/87
[2020-07-29] MEDS ORDERED: AMOX-580 PO (12:44)
--- NOTE | 2020-07-29 17:49 | NUR ---
Pt Dc to home with mom. Pt is A & Ox4 and in no apparent distress. Pt verbalizes understanding of all DC orders. Pt educated on wound dressings change and S & S of infection. Pt educated on wound vac and taught about fx of wound vac. Pt will followup with woundcare tomorrow to have wound vac replaced. Pt packed and wheeled out tot the front where his mom pick him up.
== END 2020-07-29 15:53 | disposition home health service (06) | DRG 907 ==
LOC: ER 16:40 → ED HOLD 22:49 → MED 3N 07-20 01:25 → CICU 2S 07-20 20:05 → SUR 3N 07-23 17:15
PROVIDERS: ADMIT Internal Medicine; ATTEND Internal Medicine
PROC: B42F1ZZ Computerized Tomography (CT Scan) of Right Lower Extremity Arteries using Low Osmolar Contrast (ICD-10-PCS; 2020-07-19)
PROC: 04CM0ZZ Extirpation of Matter from Right Popliteal Artery, Open Approach (ICD-10-PCS; 2020-07-20)
PROC: 0YW Anatomical Regions, Lower Extremities, Revision (ICD-10-PCS; 2020-07-20)
PROC: 04CC0ZZ Extirpation of Matter from Right Common Iliac Artery, Open Approach (ICD-10-PCS; principal; 2020-07-20 19:10)
PROC: 3E0234Z Introduction of Serum, Toxoid and Vaccine into Muscle, Percutaneous Approach (ICD-10-PCS; 2020-07-22)
PROC: 3E02340 Introduction of Influenza Vaccine into Muscle, Percutaneous Approach (ICD-10-PCS; 2020-07-22)
DX: T85.898A Other specified complication of other internal prosthetic devices, implants and grafts, initial encounter (principal); J96.90 Respiratory failure, unspecified, unspecified whether with hypoxia or hypercapnia; L03.90 Cellulitis, unspecified; I74.5 Embolism and thrombosis of iliac artery; D62 Acute posthemorrhagic anemia; I73.9 Peripheral vascular disease, unspecified; I10 Essential (primary) hypertension; G89.29 Other chronic pain; M54.9 Dorsalgia, unspecified; Z87.891 Personal history of nicotine dependence; E78.5 Hyperlipidemia, unspecified; N18.30 Chronic kidney disease, stage 3 unspecified; E11.65 Type 2 diabetes mellitus with hyperglycemia; E11.22 Type 2 diabetes mellitus with diabetic chronic kidney disease; T50.905A Adverse effect of unspecified drugs, medicaments and biological substances, initial encounter; Z20.828 Contact with and (suspected) exposure to other viral communicable diseases; Y83.8 Other surgical procedures as the cause of abnormal reaction of the patient, or of later complication, without mention of misadventure at the time of the procedure; Y92.89 Other specified places as the place of occurrence of the external cause; Z23 Encounter for immunization; E11.51 Type 2 diabetes mellitus with diabetic peripheral angiopathy without gangrene; I12.9 Hypertensive chronic kidney disease with stage 1 through stage 4 chronic kidney disease, or unspecified chronic kidney disease; K59.03 Drug induced constipation; I99.8 Other disorder of circulatory system
CPT/HCPCS: 36415; 36600; 71045; 73551; 73590; 73706; 74018; 76937; 80048; 80053; 80202; 81003; 82803; 82948; 83036; 83605; 83735; 83880; 84132; 84145; 85007; 85018; 85025; 85347; 85610; 85730; 86885; 86900; 86901; 86920; 87040; 87070; 87075; 87081; 87102; 87635; 93005; 93971; 94002; 94760; 96361; 96374; 97110; 97116; 97162; 97530; 99285; A4618; A6258; A6449; A6550; A7000; C1757; C1758; C1768; G0378; J0690; J0692; J1100; J1170; J1644; J1815; J2001; J2250; J2270; J2370; J2405; J2704; J3010; J3370; J7030; J7040; J7120; P9045

== ENCOUNTER 2020-07-30 11:03 | Outpatient (CLI) | payer MEDICAID, OTHER ==
[~2020-07-30 11:03] MED LIST: AMOX-580 PO; APIX5TAB3 PO; ATOR40TA72 PO; CILO100T PO; CLOP75TA35 PO; DILT180C87 PO; METO25TA6 PO
[2020-07-30] MEDS ORDERED: LIDOcaine 2% 5ml jelly ONE (12:09)
== END 2020-07-30 23:59 | disposition home or self-care (01) ==
LOC: WOUND CARE 11:03
PROVIDERS: ATTEND Nurse Practitioner Family
DX: T86.828 Other complications of skin graft (allograft) (autograft) (principal); E11.622 Type 2 diabetes mellitus with other skin ulcer; L97.112 Non-pressure chronic ulcer of right thigh with fat layer exposed; L97.211 Non-pressure chronic ulcer of right calf limited to breakdown of skin; L97.221 Non-pressure chronic ulcer of left calf limited to breakdown of skin; L98.491 Non-pressure chronic ulcer of skin of other sites limited to breakdown of skin; E11.65 Type 2 diabetes mellitus with hyperglycemia; E11.52 Type 2 diabetes mellitus with diabetic peripheral angiopathy with gangrene; E11.22 Type 2 diabetes mellitus with diabetic chronic kidney disease; I12.9 Hypertensive chronic kidney disease with stage 1 through stage 4 chronic kidney disease, or unspecified chronic kidney disease; N18.30 Chronic kidney disease, stage 3 unspecified; G89.29 Other chronic pain; E78.5 Hyperlipidemia, unspecified; I99.8 Other disorder of circulatory system; I74.5 Embolism and thrombosis of iliac artery; Z87.891 Personal history of nicotine dependence; Z95.1 Presence of aortocoronary bypass graft; Y83.2 Surgical operation with anastomosis, bypass or graft as the cause of abnormal reaction of the patient, or of later complication, without mention of misadventure at the time of the procedure; Y92.238 Other place in hospital as the place of occurrence of the external cause
CPT/HCPCS: 97597; 97598

== ENCOUNTER 2020-08-06 10:39 | Outpatient (CLI) | payer MEDICAID, OTHER ==
[2020-08-06] MEDS ORDERED: LIDOcaine 2% 5ml jelly ONE (11:16)
== END 2020-08-06 23:59 | disposition home or self-care (01) ==
LOC: WOUND CARE 10:39
PROVIDERS: ATTEND Nurse Practitioner Family
DX: T86.828 Other complications of skin graft (allograft) (autograft) (principal); T81.89XD Other complications of procedures, not elsewhere classified, subsequent encounter; E11.622 Type 2 diabetes mellitus with other skin ulcer; L98.491 Non-pressure chronic ulcer of skin of other sites limited to breakdown of skin; L97.221 Non-pressure chronic ulcer of left calf limited to breakdown of skin; E11.65 Type 2 diabetes mellitus with hyperglycemia; E11.52 Type 2 diabetes mellitus with diabetic peripheral angiopathy with gangrene; E11.22 Type 2 diabetes mellitus with diabetic chronic kidney disease; I12.9 Hypertensive chronic kidney disease with stage 1 through stage 4 chronic kidney disease, or unspecified chronic kidney disease; N18.30 Chronic kidney disease, stage 3 unspecified; G89.29 Other chronic pain; E78.5 Hyperlipidemia, unspecified; I74.5 Embolism and thrombosis of iliac artery; Z87.891 Personal history of nicotine dependence; Z95.1 Presence of aortocoronary bypass graft; Y83.2 Surgical operation with anastomosis, bypass or graft as the cause of abnormal reaction of the patient, or of later complication, without mention of misadventure at the time of the procedure; Y92.238 Other place in hospital as the place of occurrence of the external cause; Y83.8 Other surgical procedures as the cause of abnormal reaction of the patient, or of later complication, without mention of misadventure at the time of the procedure
CPT/HCPCS: G0463

== ENCOUNTER 2020-08-13 11:30 | Outpatient (CLI) | payer MEDICAID ==
[2020-08-13] MEDS ORDERED: LIDOcaine 2% 5ml jelly ONE (11:52)
== END 2020-08-13 23:59 | disposition home or self-care (01) ==
LOC: WOUND CARE 11:30
PROVIDERS: ATTEND Nurse Practitioner Family
DX: T86.828 Other complications of skin graft (allograft) (autograft) (principal); T81.89XD Other complications of procedures, not elsewhere classified, subsequent encounter; E11.622 Type 2 diabetes mellitus with other skin ulcer; L98.491 Non-pressure chronic ulcer of skin of other sites limited to breakdown of skin; L97.221 Non-pressure chronic ulcer of left calf limited to breakdown of skin; L97.112 Non-pressure chronic ulcer of right thigh with fat layer exposed; L97.122 Non-pressure chronic ulcer of left thigh with fat layer exposed; E11.65 Type 2 diabetes mellitus with hyperglycemia; E11.52 Type 2 diabetes mellitus with diabetic peripheral angiopathy with gangrene; E11.22 Type 2 diabetes mellitus with diabetic chronic kidney disease; I12.9 Hypertensive chronic kidney disease with stage 1 through stage 4 chronic kidney disease, or unspecified chronic kidney disease; N18.30 Chronic kidney disease, stage 3 unspecified; G89.29 Other chronic pain; E78.5 Hyperlipidemia, unspecified; I74.5 Embolism and thrombosis of iliac artery; Z87.891 Personal history of nicotine dependence; Z95.1 Presence of aortocoronary bypass graft; Y83.2 Surgical operation with anastomosis, bypass or graft as the cause of abnormal reaction of the patient, or of later complication, without mention of misadventure at the time of the procedure; Y83.8 Other surgical procedures as the cause of abnormal reaction of the patient, or of later complication, without mention of misadventure at the time of the procedure
CPT/HCPCS: 97597

== ENCOUNTER 2020-08-20 11:19 | Outpatient (CLI) | payer MEDICAID ==
[2020-08-20] MEDS ORDERED: LIDOcaine 2% 5ml jelly ONE (12:01)
== END 2020-08-20 23:59 | disposition home or self-care (01) ==
LOC: WOUND CARE 11:19
PROVIDERS: ATTEND Nurse Practitioner
DX: T86.828 Other complications of skin graft (allograft) (autograft) (principal); T81.89XD Other complications of procedures, not elsewhere classified, subsequent encounter; E11.622 Type 2 diabetes mellitus with other skin ulcer; L98.491 Non-pressure chronic ulcer of skin of other sites limited to breakdown of skin; L97.221 Non-pressure chronic ulcer of left calf limited to breakdown of skin; L97.112 Non-pressure chronic ulcer of right thigh with fat layer exposed; L97.122 Non-pressure chronic ulcer of left thigh with fat layer exposed; E11.65 Type 2 diabetes mellitus with hyperglycemia; E11.52 Type 2 diabetes mellitus with diabetic peripheral angiopathy with gangrene; E11.22 Type 2 diabetes mellitus with diabetic chronic kidney disease; I12.9 Hypertensive chronic kidney disease with stage 1 through stage 4 chronic kidney disease, or unspecified chronic kidney disease; N18.30 Chronic kidney disease, stage 3 unspecified; G89.29 Other chronic pain; M54.9 Dorsalgia, unspecified; E78.5 Hyperlipidemia, unspecified; I74.5 Embolism and thrombosis of iliac artery; Z87.891 Personal history of nicotine dependence; Z95.1 Presence of aortocoronary bypass graft; Y83.2 Surgical operation with anastomosis, bypass or graft as the cause of abnormal reaction of the patient, or of later complication, without mention of misadventure at the time of the procedure; Y83.8 Other surgical procedures as the cause of abnormal reaction of the patient, or of later complication, without mention of misadventure at the time of the procedure
CPT/HCPCS: G0463

== ENCOUNTER 2020-08-28 15:57 | Inpatient (IN) | payer MEDICAID ==
[~2020-08-28] VITALS: Ht 185.4 cm; Wt 78.1 kg
[~2020-08-28 15:57] MED LIST changes: +CLOP75TA34 PO; -CLOP75TA35 PO
[2020-08-28 18:10] LABS: BASOPHILS % (AUTO) 0.4 % (0-1); EOSINOPHILS % (AUTO) 0.1 % (0-6); HEMATOCRIT 28.1 % (42.0-52.0); HEMOGLOBIN 9.4 g/dl (14.0-17.9); LYMPHOCYTES # (AUTO) 0.5 X10'3 (1.1-4.8); LYMPHOCYTES % (AUTO) 4.5 % (21-51); MEAN CORPUSCULAR HEMOGLOBIN 29.6 PG (27.0-31.0); MEAN CORPUSCULAR HGB CONC 33.5 g/dL (33.0-36.5); MEAN CORPUSCULAR VOLUME 88.3 FL (78-98); MEAN PLATELET VOLUME 9.2 FL (7.4-10.4); MONOCYTES # (AUTO) 0.4 X10'3 (0-0.9); MONOCYTES % (AUTO) 3.7 % (2-12); NEUTROPHILS # (AUTO) 10.7 X10'3 (1.8-7.7); NEUTROPHILS % (AUTO) 91.3 % (42-75); PLATELET COUNT 106 X10'3 (140-440); RED BLOOD COUNT 3.19 X10'6 (4.70-6.10); RED CELL DISTRIBUTION WIDTH 15.1 % (11.5-14.5); WHITE BLOOD COUNT 11.7 X10'3 (4.5-11.0)
[2020-08-28 18:18] LABS: PARTIAL THROMBOPLASTIN TIME 46 SECONDS (22-32)
[2020-08-28 18:20] LABS: ALANINE AMINOTRANSFERASE 25 U/L (12-78); ALBUMIN 2.4 G/DL (3.4-5.0); ALBUMIN/GLOBULIN RATIO 0.6 (1.1-1.5); ALKALINE PHOSPHATASE 69 IU/L (46-116); ANION GAP 13 (8-16); ASPARTATE AMINO TRANSFERASE 24 U/L (10-37); BILIRUBIN,TOTAL 0.7 MG/DL (0.1-1.0); BLOOD UREA NITROGEN 32 MG/DL (7-18); BUN/CREATININE RATIO 12.6 (5.4-32.0); C-REACTIVE PROTEIN 24.08 MG/DL (0.0-0.5); CALCIUM 7.8 MG/DL (8.5-10.1); CHLORIDE 95 MMOL/L (99-107); CREATININE 2.53 MG/DL (0.60-1.10); GLUCOSE 139 MG/DL (70-104); SODIUM 130 MMOL/L (135-145); TOTAL CARBON DIOXIDE 22.3 MMOL/L (24-32); TOTAL PROTEIN 6.2 G/DL (6.4-8.2); eGFR 27 ML/MIN
[2020-08-28 18:29] LABS: POTASSIUM 2.8 MMOL/L (3.5-5.1)
[2020-08-28] MEDS ORDERED: heparin 1,000 UNITS/NS 500ml 500 ML IV SCH (20:05)
[2020-08-28] MEDS: tPA-cathflo 2mg/2ml IV flush 4 MG in normal saline 100ml IV soln 100 ML ICATH SCH (20:05)
[2020-08-28] MEDS ORDERED: HYDROcodone/acetaminophen 10/325mg tab PO PRN (20:15)
[2020-08-28] MEDS ORDERED: HYDROcodone/acetaminophen 5mg/325mg tablet PO PRN (20:15)
[2020-08-28] MEDS ORDERED: morphine 2 MG/ML inj. syringe IV PRN (20:15)
[2020-08-28] MEDS ORDERED: LIDOcaine 2% 10ml TOPICAL JELLY (Urojet) TP ONE (20:15)
[2020-08-28] MEDS ORDERED: magnesium hydroxide 30ml (MOM) UD suspension PO PRN (20:15)
[2020-08-28] MEDS ORDERED: acetaminophen 650mg rectal suppository RC PRN (20:15)
[2020-08-28] MEDS ORDERED: potassium Cl 40MEQ/1/2NS 520ml 520 ML IV PRN (20:15)
[2020-08-28] MEDS: normal saline 1000ml 1,000 ML IV SCH (20:15)
[2020-08-28] MEDS ORDERED: ondansetron/PF 4mg/2ml inj IV PRN (20:15)
[2020-08-28] MEDS ORDERED: morphine 4 MG/ML inj SYRINge IV PRN (20:15)
[2020-08-28] MEDS ORDERED: midazolam 2 mg/2 ml injection ONE ×2 (20:39→21:18)
[2020-08-28] MEDS ORDERED: LIDOcaine 1%/PF 5ML 10 MG/ML VIAL ONE (20:39)
[2020-08-28] MEDS ORDERED: fentaNYL/PF 50MCG/1 ML 2ML syringe ONE ×3 (20:39→21:52)
[2020-08-28] MEDS ORDERED: heparin 1,000 UNITS/NS 500ml 500 ML ONE ×2 (20:40→21:18)
[2020-08-28] MEDS ORDERED: iohexol 300mg/ml 100ml inj. ONE (20:40)
--- NOTE | 2020-08-28 20:50 | NUR ---
Pt taken from wound care department to Angio Lab for right lower extremity angiogram and intervention via yevgeniy by John CORREA. Addendum: 08/28/20 at 2058 by Shyam Son RN Amended: Links added.
[2020-08-28] MEDS ORDERED: vancomycin/NS 1 GM ADD-VANTAGE 250 ML X 1 DOSE IV ONE (21:45)
[2020-08-28] MEDS ORDERED: CADD PCA waste documentation MC PRN (22:20)
[2020-08-28] MEDS ORDERED: naloxone 0.4 mg/ml inj IV PRN (22:20)
[2020-08-28 22:30] VITALS: BP 120/71
[2020-08-28 23:00] VITALS: BP 133/79
[2020-08-28] MEDS: HYDROmorphone/NS 1 mg/ml CADD 50 ML IV SCH (23:16)
[2020-08-29] VITALS (24 sets, daily range): BP systolic 118–196; BP diastolic 73–95
[2020-08-29] MEDS: HYDROmorphone/NS 1 mg/ml CADD 50 ML IV SCH ×12 (01:00→23:00)
[2020-08-29] MEDS: acetaminophen 325mg tablet PO PRN ×2 (01:05→20:21)
[2020-08-29] MEDS: piperacillin/tazo 3.375gm/50ml 50 ML IV SCH ×3 (01:05→16:10)
[2020-08-29 01:28] LABS: BASOPHILS % (AUTO) 0.1 % (0-1); EOSINOPHILS # (AUTO) 0.1 X10'3 (0-0.9); EOSINOPHILS % (AUTO) 0.6 % (0-6); HEMATOCRIT 26.9 % (42.0-52.0); HEMOGLOBIN 9.2 g/dl (14.0-17.9); LYMPHOCYTES # (AUTO) 0.7 X10'3 (1.1-4.8); LYMPHOCYTES % (AUTO) 6.2 % (21-51); MEAN CORPUSCULAR HEMOGLOBIN 30.6 PG (27.0-31.0); MEAN CORPUSCULAR HGB CONC 34.2 g/dL (33.0-36.5); MEAN CORPUSCULAR VOLUME 89.5 FL (78-98); MONOCYTES # (AUTO) 0.5 X10'3 (0-0.9); MONOCYTES % (AUTO) 3.8 % (2-12); NEUTROPHILS # (AUTO) 10.6 X10'3 (1.8-7.7); NEUTROPHILS % (AUTO) 89.3 % (42-75); PLATELET COUNT 104 X10'3 (140-440); RED BLOOD COUNT 3.01 X10'6 (4.70-6.10); RED CELL DISTRIBUTION WIDTH 15.6 % (11.5-14.5); WHITE BLOOD COUNT 11.9 X10'3 (4.5-11.0)
[2020-08-29 01:35] LABS: ALANINE AMINOTRANSFERASE 23 U/L (12-78); ALBUMIN 2.4 G/DL (3.4-5.0); ALBUMIN/GLOBULIN RATIO 0.6 (1.1-1.5); ALKALINE PHOSPHATASE 73 IU/L (46-116); ANION GAP 14 (8-16); ASPARTATE AMINO TRANSFERASE 23 U/L (10-37); BILIRUBIN,TOTAL 0.7 MG/DL (0.1-1.0); BLOOD UREA NITROGEN 32 MG/DL (7-18); BUN/CREATININE RATIO 13.2 (5.4-32.0); CALCIUM 7.8 MG/DL (8.5-10.1); CHLORIDE 97 MMOL/L (99-107); CREATININE 2.43 MG/DL (0.60-1.10); GLUCOSE 126 MG/DL (70-104); MAGNESIUM 1.9 MG/DL (1.5-2.4); PHOSPHORUS 2.7 MG/DL (2.3-4.5); SODIUM 133 MMOL/L (135-145); TOTAL CARBON DIOXIDE 21.8 MMOL/L (24-32); TOTAL PROTEIN 6.1 G/DL (6.4-8.2); eGFR 28 ML/MIN
[2020-08-29 01:38] LABS: POTASSIUM 2.5 MMOL/L (3.5-5.1)
[2020-08-29] MEDS: tPA-cathflo 2mg/2ml IV flush 4 MG in normal saline 100ml IV soln 100 ML ICATH SCH ×3 (02:01→19:04)
[2020-08-29] MEDS: potassium Cl 40MEQ/1/2NS 520ml 520 ML IV PRN ×2 (02:08→06:46)
[2020-08-29 03:30] LABS: PARTIAL THROMBOPLASTIN TIME 53 SECONDS (22-32)
--- NOTE | 2020-08-29 06:24 | NUR ---
Problems reprioritized. Patient report given, questions answered & plan of care reviewed with day shift RN.
--- NOTE | 2020-08-29 06:28 | NUR ---
Patient in room ICU 2038. I have received report from MADELINE CADENA and had the opportunity to ask questions and assume patient care. Addendum: 08/29/20 at 0629 by Krystina Aguilar RN MADELINE DUMAS
[2020-08-29] MEDS: pantoprazole 40 MG vial IV SCH (07:57)
[2020-08-29] MEDS: docusate sod 100mg capsule PO SCH ×2 (08:00→20:00)
--- NOTE | 2020-08-29 08:45 | NUR ---
DR. ASTORGA AT BEDSIDE. NEW ORDERS RECEIVED: CULTURE RIGHT LEG WOUND
--- NOTE | 2020-08-29 09:12 | NUR ---
WOUND INFECTION EDUCATION PROVIDED BY WOUND CARE 1. Patient instructed to call their primary doctor, or go the ED immediately if any of the following symptoms occur: * Increased pain in wound * Increase in drainage from the wound * Redness in the skin surrounding the wound * Warmth in the skin surrounding the wound * Bleeding from the wound * Temperature of 101 or greater 2. If any of these occur while in the hospital tell a nurse immediately. Addendum: 08/29/20 at 0912 by Adalberto Ng RN Amended: Links added.
--- NOTE | 2020-08-29 09:15 | NUR ---
DR. MORAN AT BEDSIDE. NEEDS NEPHROLOGY CONSULT TO ADDRESS KIDNEY FUNCTION BEFORE ANGIOGRAM OF RIGHT LEG ORDERED. PATIENT MAY NEED AMPUTATION IF NO VIABLE GRAFT SITES AVAILABLE PER DR. MORAN
[2020-08-29] MEDS: normal saline 1000ml 1,000 ML IV SCH ×2 (09:35→20:14)
--- NOTE | 2020-08-29 10:26 | NUR ---
Initial: Pt admit DX R leg post-op wound infection, KAPIL, and RLE ischemia w/ cold R foot s/p TPA at this time per EMR. Pt significant hx PVD per MD note. Pt remains NPO at this time. Pt would benefit from written/verbal high protein ed prior to discharge; unable to wake from sleeping during RD visit today. Once diet advances would benefit from Vidal ONS for wound healing needs. LBM 08/27 receiving routine colace. Will continue to monitor for additional protein needs given DX. Rec: 1. advance diet as medically indicated to regular 2. once PO; vidal ONS for wound healing needs 3. routine bowel care 4. weekly wts 5. high protein ed prior to discharge Addendum: 08/29/20 at [address] Amended: Links added.
--- NOTE | 2020-08-29 12:13 | NUR ---
MD JESSY AT BEDSIDE. INFORMED PATIENT TO CONT TPA INFUSION TODAY, NO PROCEDURE. NEW ORDER RECEIVED: HEART HEALTHY DIET
[2020-08-29 13:13] LABS: HEMATOCRIT 29.5 % (42.0-52.0); HEMOGLOBIN 9.8 g/dl (14.0-17.9); MEAN CORPUSCULAR HEMOGLOBIN 29.8 PG (27.0-31.0); MEAN CORPUSCULAR HGB CONC 33.2 g/dL (33.0-36.5); MEAN CORPUSCULAR VOLUME 89.7 FL (78-98); MEAN PLATELET VOLUME 8.9 FL (7.4-10.4); PLATELET COUNT 100 X10'3 (140-440); RED BLOOD COUNT 3.29 X10'6 (4.70-6.10); RED CELL DISTRIBUTION WIDTH 15.7 % (11.5-14.5); WHITE BLOOD COUNT 12.3 X10'3 (4.5-11.0)
[2020-08-29 13:27] LABS: PARTIAL THROMBOPLASTIN TIME 38 SECONDS (22-32)
--- NOTE | 2020-08-29 16:50 | NUR ---
NOTIFIED BICKMORE OF FIBINOGEN 750, NO NEW ORDERS AT THIS TIME. CONTINUE TPA AT CURRENT RATE THROUGHOUT NIGHT
[2020-08-29] MEDS: potassium Cl 20 mEq SR tablet PO PRN ×2 (17:04→21:32)
[2020-08-29] MEDS: diltiazem CD 180mg cap (once-daily) PO SCH (17:19)
--- NOTE | 2020-08-29 17:34 | NUR ---
JESSY NOTIFIED OF FEVER 38.8. NO NEW ORDERS
[2020-08-29] MEDS ORDERED: labetalol 20mg/4ml (5mg/ml) syringe IV ONE ×2 (19:50→20:55)
[2020-08-29] MEDS ORDERED: VANCOMYCIN 750MG IV in NS 250 ML IV SCH (20:00)
[2020-08-29] MEDS: lactobacillus rhamnosus 10,000 MMU CELLS/CAPSULE PO SCH (20:17)
[2020-08-29] MEDS: cilostazol 50mg tablet PO SCH (20:18)
[2020-08-29 20:22] LABS: HEMATOCRIT 30.8 % (42.0-52.0); HEMOGLOBIN 10.3 g/dl (14.0-17.9); MEAN CORPUSCULAR HGB CONC 33.5 g/dL (33.0-36.5); MEAN CORPUSCULAR VOLUME 89.5 FL (78-98); MEAN PLATELET VOLUME 8.9 FL (7.4-10.4); PLATELET COUNT 102 X10'3 (140-440); RED BLOOD COUNT 3.44 X10'6 (4.70-6.10); RED CELL DISTRIBUTION WIDTH 15.5 % (11.5-14.5); WHITE BLOOD COUNT 10.5 X10'3 (4.5-11.0)
[2020-08-29] MEDS: acetylcysteine 200 MG/ml 4ml vial PO SCH (20:28)
[2020-08-29 20:37] LABS: PARTIAL THROMBOPLASTIN TIME 31 SECONDS (22-32)
[2020-08-29] MEDS: VANCOMYCIN 750MG IV in NS 250 ML IV SCH (23:29)
[2020-08-30] VITALS (17 sets, daily range): BP systolic 124–176; BP diastolic 72–91
[2020-08-30] MEDS: piperacillin/tazo 3.375gm/50ml 50 ML IV SCH ×3 (00:03→16:08)
[2020-08-30] MEDS: HYDROmorphone/NS 1 mg/ml CADD 50 ML IV SCH ×12 (01:00→23:00)
[2020-08-30] MEDS ORDERED: acetaminophen 1,000mg/100ml IV 100 ML IV ONE (01:00)
[2020-08-30] MEDS: tPA-cathflo 2mg/2ml IV flush 4 MG in normal saline 100ml IV soln 100 ML ICATH SCH ×2 (02:01→10:01)
[2020-08-30] MEDS: normal saline 1000ml 1,000 ML IV SCH ×3 (03:33→15:40)
[2020-08-30] MEDS: acetaminophen 325mg tablet PO PRN ×3 (05:16→12:41)
[2020-08-30 06:07] LABS: BASOPHILS % (AUTO) 0.2 % (0-1); EOSINOPHILS # (AUTO) 0.1 X10'3 (0-0.9); EOSINOPHILS % (AUTO) 0.5 % (0-6); HEMATOCRIT 27.1 % (42.0-52.0); HEMOGLOBIN 9.1 g/dl (14.0-17.9); LYMPHOCYTES % (AUTO) 8.3 % (21-51); MEAN CORPUSCULAR HEMOGLOBIN 30.3 PG (27.0-31.0); MEAN CORPUSCULAR HGB CONC 33.6 g/dL (33.0-36.5); MEAN CORPUSCULAR VOLUME 90.1 FL (78-98); MEAN PLATELET VOLUME 9.2 FL (7.4-10.4); MONOCYTES # (AUTO) 0.8 X10'3 (0-0.9); MONOCYTES % (AUTO) 7.1 % (2-12); NEUTROPHILS # (AUTO) 9.6 X10'3 (1.8-7.7); NEUTROPHILS % (AUTO) 83.9 % (42-75); PLATELET COUNT 83 X10'3 (140-440); RED CELL DISTRIBUTION WIDTH 15.6 % (11.5-14.5); WHITE BLOOD COUNT 11.5 X10'3 (4.5-11.0)
[2020-08-30 06:23] LABS: PARTIAL THROMBOPLASTIN TIME 38 SECONDS (22-32)
[2020-08-30 06:36] LABS: ALANINE AMINOTRANSFERASE 30 U/L (12-78); ALBUMIN 2.1 G/DL (3.4-5.0); ALBUMIN/GLOBULIN RATIO 0.6 (1.1-1.5); ALKALINE PHOSPHATASE 91 IU/L (46-116); ANION GAP 10 (8-16); ASPARTATE AMINO TRANSFERASE 77 U/L (10-37); BILIRUBIN,TOTAL 0.6 MG/DL (0.1-1.0); BLOOD UREA NITROGEN 22 MG/DL (7-18); CALCIUM 7.6 MG/DL (8.5-10.1); CHLORIDE 102 MMOL/L (99-107); CREATININE 1.69 MG/DL (0.60-1.10); GLUCOSE 147 MG/DL (70-104); MAGNESIUM 1.7 MG/DL (1.5-2.4); PHOSPHORUS 2.6 MG/DL (2.3-4.5); POTASSIUM 3.6 MMOL/L (3.5-5.1); SODIUM 135 MMOL/L (135-145); TOTAL CARBON DIOXIDE 22.8 MMOL/L (24-32); TOTAL PROTEIN 5.8 G/DL (6.4-8.2); eGFR 43 ML/MIN
[2020-08-30] MEDS: cilostazol 50mg tablet PO SCH (07:43)
[2020-08-30] MEDS: pantoprazole 40 MG vial IV SCH (07:43)
[2020-08-30] MEDS: diltiazem CD 180mg cap (once-daily) PO SCH (07:43)
[2020-08-30] MEDS: atorvastatin 20mg tablet PO SCH (07:43)
[2020-08-30] MEDS: lactobacillus rhamnosus 10,000 MMU CELLS/CAPSULE PO SCH (07:43)
[2020-08-30] MEDS: acetylcysteine 200 MG/ml 4ml vial PO SCH (07:45)
[2020-08-30] MEDS: docusate sod 100mg capsule PO SCH ×2 (07:46→20:00)
[2020-08-30] MEDS: clopidogrel 75mg tablet PO SCH (08:00)
[2020-08-30] MEDS ORDERED: diltiazem CD 180mg cap (once-daily) PO SCH (08:00)
--- NOTE | 2020-08-30 08:15 | NUR ---
Patient in room ICU 2038. I have received report from Joey and had the opportunity to ask questions and assume patient care.
--- NOTE | 2020-08-30 08:30 | NUR ---
Report given to receiving RN
[2020-08-30] MEDS ORDERED: famotidine/PF 10 mg/ml inj IV ONE (12:45)
[2020-08-30] MEDS ORDERED: heparin 10,000 units/1 ML INJ ONE ×2 (13:02→22:05)
--- NOTE | 2020-08-30 17:46 | NUR ---
PT to OR
--- NOTE | 2020-08-30 18:35 | NUR ---
Patient in room ICU 2038. I have received report from Florina CORREA and had the opportunity to ask questions and assume patient care. Pt is in the OR
[2020-08-30] MEDS ORDERED: iohexol 300 MG/1 ML 50ml polymer ONE (19:10)
[2020-08-30] MEDS ORDERED: proCHLORperazine 10 MG/2 ml inj IV PRN (19:25)
[2020-08-30] MEDS ORDERED: ondansetron/PF 4mg/2ml inj IV PRN (19:25)
[2020-08-30] MEDS ORDERED: ringers solution, lacted 1,000 ML IV SCH (19:25)
[2020-08-30] MEDS ORDERED: morphine 2 MG/ML inj. syringe IV PRN (19:25)
[2020-08-30] MEDS ORDERED: meperidine/PF 25mg/ml syringe IV PRN ×3 (19:25)
[2020-08-30] MEDS ORDERED: morphine 4 MG/ML inj SYRINge IV PRN (19:25)
[2020-08-30 22:33] LABS: PARTIAL THROMBOPLASTIN TIME 80 SECONDS (22-32)
[2020-08-31] VITALS (26 sets, daily range): BP systolic 118–162; BP diastolic 56–81
[2020-08-31 00:43] LABS: ABG BASE EXCESS -7.5 mmol/L (-2.0-2.0); ABG HCO3 16.7 mmol/L (22.0-26.0); ABG OXYGEN SATURATION 96.6 % (94-97); ABG PCO2 (T) 29.7 mmHg (35.0-48.0); ABG PO2 (T) 92.2 mmHg (75.0-100.0); FCOHb 0.2 % (0.0-3.9); FLOW 7 L/min; FMetHb 0.2 % (0.0-1.5); FO2Hb 96.2 % (94-97); PATIENT TEMPERATURE 37.1; TOTAL HEMOGLOBIN 9.7 G/dl (14.0-18.0)
[2020-08-31 00:43] LABS: ISTAT CREATININE 1.5 mg/dL (0.8-1.3); ISTAT HGB 7.5 g/dl (14.0-18.0); ISTAT IONIZED CALCIUM 1.02 mmol/L (1.03-1.32); ISTAT K 3.7 mmol/L (3.5-5.1); POC BUN/CREATININE RATIO 9.3 (5.4-32.0)
[2020-08-31 00:44] LABS: ISTAT CREATININE 1.4 mg/dL (0.8-1.3); ISTAT HGB 8.2 g/dl (14.0-18.0); ISTAT IONIZED CALCIUM 0.95 mmol/L (1.03-1.32); ISTAT K 3.8 mmol/L (3.5-5.1)
[2020-08-31] MEDS ORDERED: heparin 10,000 units/1 ML INJ IV ONE (00:45)
[2020-08-31 00:54] LABS: BASOPHILS # (AUTO) 0.1 X10'3 (0-0.2); BASOPHILS % (AUTO) 0.5 % (0-1); EOSINOPHILS # (AUTO) 0.1 X10'3 (0-0.9); EOSINOPHILS % (AUTO) 1.1 % (0-6); HEMATOCRIT 26.9 % (42.0-52.0); LYMPHOCYTES # (AUTO) 1.5 X10'3 (1.1-4.8); LYMPHOCYTES % (AUTO) 14.1 % (21-51); MEAN CORPUSCULAR HEMOGLOBIN 29.4 PG (27.0-31.0); MEAN CORPUSCULAR HGB CONC 33.6 g/dL (33.0-36.5); MEAN CORPUSCULAR VOLUME 87.4 FL (78-98); MONOCYTES # (AUTO) 0.9 X10'3 (0-0.9); MONOCYTES % (AUTO) 8.7 % (2-12); NEUTROPHILS # (AUTO) 8.1 X10'3 (1.8-7.7); NEUTROPHILS % (AUTO) 75.6 % (42-75); PLATELET COUNT 105 X10'3 (140-440); RED BLOOD COUNT 3.08 X10'6 (4.70-6.10); WHITE BLOOD COUNT 10.8 X10'3 (4.5-11.0)
[2020-08-31] MEDS: tPA-cathflo 2mg/2ml IV flush 4 MG in normal saline 100ml IV soln 100 ML ICATH SCH ×4 (00:57→18:01)
[2020-08-31] MEDS: lactobacillus rhamnosus 10,000 MMU CELLS/CAPSULE PO SCH ×3 (00:58→20:28)
[2020-08-31] MEDS: acetylcysteine 200 MG/ml 4ml vial PO SCH ×3 (00:59→20:55)
[2020-08-31] MEDS: cilostazol 50mg tablet PO SCH ×3 (00:59→20:56)
[2020-08-31] MEDS: docusate sod 250mg capsule PO SCH ×2 (00:59→20:28)
[2020-08-31] MEDS: polyethylene glycol 3350 17gm powd pack PO SCH ×2 (00:59→20:56)
[2020-08-31] MEDS: VANCOMYCIN 750MG IV in NS 250 ML IV SCH ×2 (01:00→22:46)
--- NOTE | 2020-08-31 01:00 | NUR ---
Received to room 2038, accompanied by Julia EKYS, Salvatore KEYS and surgical crew Valentina CORREA. See assessment records. Megha and CVPline and IVs noted in IV assessment records. All sites without redness or swelling. Vasoactive drugs infusing per Central Line. Received report from Salvatore KEYS and was able to ask questions. Received orders from Julia KEYS to start a heparin drip with a goal PTT of 80-120 seconds and to keep SBP greater than 140mmHg. Pt is sleepy and still clearing sedation but doing well. Wound vac present to right lower leg with minimal output at this time. The pt does not have pulses in his right foot, Julia KEYS aware and requests that we wrap the pt's foot in warm blankets. Will continue to monitor
[2020-08-31 01:08] LABS: PARTIAL THROMBOPLASTIN TIME 38 SECONDS (22-32)
[2020-08-31 01:09] LABS: ALANINE AMINOTRANSFERASE 33 U/L (12-78); ALBUMIN 1.5 G/DL (3.4-5.0); ALBUMIN/GLOBULIN RATIO 0.5 (1.1-1.5); ALKALINE PHOSPHATASE 70 IU/L (46-116); ANION GAP 9 (8-16); ASPARTATE AMINO TRANSFERASE 84 U/L (10-37); BILIRUBIN,TOTAL 0.5 MG/DL (0.1-1.0); BLOOD UREA NITROGEN 16 MG/DL (7-18); BUN/CREATININE RATIO 10.5 (5.4-32.0); CALCIUM 6.6 MG/DL (8.5-10.1); CHLORIDE 108 MMOL/L (99-107); CREATININE 1.53 MG/DL (0.60-1.10); GLUCOSE 121 MG/DL (70-104); MAGNESIUM 1.6 MG/DL (1.5-2.4); PHOSPHORUS 3.6 MG/DL (2.3-4.5); POTASSIUM 3.6 MMOL/L (3.5-5.1); SODIUM 139 MMOL/L (135-145); TOTAL CARBON DIOXIDE 22.3 MMOL/L (24-32); TOTAL PROTEIN 4.6 G/DL (6.4-8.2); eGFR 48 ML/MIN
[2020-08-31] MEDS: HYDROmorphone/NS 1 mg/ml CADD 50 ML IV SCH ×11 (01:45→23:00)
[2020-08-31] MEDS: piperacillin/tazo 3.375gm/50ml 50 ML IV SCH ×3 (01:50→15:28)
[2020-08-31] MEDS: heparin 25,000 UNIT/250ml bag 250 ML IV SCH ×2 (01:50→20:16)
[2020-08-31] MEDS: normal saline 1000ml 1,000 ML IV SCH ×4 (01:50→20:26)
[2020-08-31] MEDS: acetaminophen 325mg tablet PO PRN ×3 (03:41→22:45)
[2020-08-31] MEDS ORDERED: albumin (Human) 5% 250ml 250 ML IV ONE ×2 (05:00)
--- NOTE | 2020-08-31 05:00 | NUR ---
Called Julia KEYS about the pt's PTT being 62 seconds, received orders to increase the heparin to 1300units/hr from 1000units/hr and give a 3500unit bolus. Also received orders for 500ml or 5% albumin to increase the pt's SBP which has been sustaining in the 130's. Pt beginning to drink sips of water, no complaints of nausea at this time.
[2020-08-31] MEDS: heparin 10,000 units/1 ML INJ IV PRN ×3 (05:08→20:14)
--- NOTE | 2020-08-31 06:30 | NUR ---
Patient in room ICU 2038. I have received report from RN and had the opportunity to ask questions and assume patient care.
--- NOTE | 2020-08-31 07:07 | NUR ---
Problems reprioritized. Patient report given, questions answered & plan of care reviewed with Florina CORREA.
[2020-08-31] MEDS: clopidogrel 75mg tablet PO SCH (07:49)
[2020-08-31] MEDS: docusate sod 100mg capsule PO SCH ×2 (07:49→20:00)
[2020-08-31] MEDS: atorvastatin 20mg tablet PO SCH (07:49)
[2020-08-31] MEDS: diltiazem CD 180mg cap (once-daily) PO SCH ×2 (07:53→10:11)
--- NOTE | 2020-08-31 10:22 | NUR ---
F/u 08/31: Pt seen by RD for written/verbal high protein ed w/ RD contact information provided. Pt is agreeable to Vidal BARR for healing needs; notified. Pt requests non-decaf coffee at this time; RD educated pt on current heart healthy diet restriction. PO 75-100% avg meals so far this admit. Addendum: 08/31/20 at [address] Amended: Links added.
[2020-08-31 13:05] LABS: CREATINE KINASE 9191 U/L (39-308)
--- NOTE | 2020-08-31 18:00 | NUR ---
Notified Brusett regarding PTT result of 50; provider requested to continue previous protocol; will give 3500 bolus, increase rate by 200 units/hr, confered with chargemaster analyst Diane.
--- NOTE | 2020-08-31 18:00 | NUR ---
Patient in room ICU 2038. I have received report from Carrol CORREA and had the opportunity to ask questions and assume patient care..
[2020-08-31] MEDS ORDERED: VANCOMYCIN LEVEL IV ONE (22:30)
[2020-09-01] VITALS (26 sets, daily range): BP systolic 89–160; BP diastolic 42–81
[2020-09-01] MEDS: piperacillin/tazo 3.375gm/50ml 50 ML IV SCH ×4 (00:13→23:52)
[2020-09-01] MEDS: HYDROmorphone/NS 1 mg/ml CADD 50 ML IV SCH ×12 (01:00→23:00)
[2020-09-01 01:10] LABS: BASOPHILS # (AUTO) 0.2 X10'3 (0-0.2); BASOPHILS % (AUTO) 1.5 % (0-1); EOSINOPHILS # (AUTO) 0.1 X10'3 (0-0.9); LYMPHOCYTES # (AUTO) 1.5 X10'3 (1.1-4.8); LYMPHOCYTES % (AUTO) 13.1 % (21-51); MEAN CORPUSCULAR HEMOGLOBIN 29.6 PG (27.0-31.0); MEAN CORPUSCULAR HGB CONC 33.9 g/dL (33.0-36.5); MEAN CORPUSCULAR VOLUME 87.4 FL (78-98); MEAN PLATELET VOLUME 8.5 FL (7.4-10.4); MONOCYTES % (AUTO) 8.3 % (2-12); NEUTROPHILS # (AUTO) 8.8 X10'3 (1.8-7.7); NEUTROPHILS % (AUTO) 76.1 % (42-75); PLATELET COUNT 143 X10'3 (140-440); RED BLOOD COUNT 2.34 X10'6 (4.70-6.10); RED CELL DISTRIBUTION WIDTH 17.4 % (11.5-14.5); WHITE BLOOD COUNT 11.5 X10'3 (4.5-11.0)
[2020-09-01 01:19] LABS: HEMATOCRIT 20.4 % (42.0-52.0); HEMOGLOBIN 6.9 g/dl (14.0-17.9)
[2020-09-01 01:22] LABS: PARTIAL THROMBOPLASTIN TIME 44 SECONDS (22-32)
[2020-09-01 01:24] LABS: ALANINE AMINOTRANSFERASE 78 U/L (12-78); ALBUMIN 1.7 G/DL (3.4-5.0); ALBUMIN/GLOBULIN RATIO 0.6 (1.1-1.5); ALKALINE PHOSPHATASE 73 IU/L (46-116); ANION GAP 7 (8-16); ASPARTATE AMINO TRANSFERASE 245 U/L (10-37); BILIRUBIN,TOTAL 0.5 MG/DL (0.1-1.0); BLOOD UREA NITROGEN 15 MG/DL (7-18); BUN/CREATININE RATIO 10.3 (5.4-32.0); CALCIUM 6.6 MG/DL (8.5-10.1); CHLORIDE 105 MMOL/L (99-107); CREATININE 1.45 MG/DL (0.60-1.10); GLUCOSE 118 MG/DL (70-104); POTASSIUM 3.1 MMOL/L (3.5-5.1); SODIUM 137 MMOL/L (135-145); TOTAL CARBON DIOXIDE 24.7 MMOL/L (24-32); TOTAL PROTEIN 4.6 G/DL (6.4-8.2); eGFR 51 ML/MIN
[2020-09-01 01:33] LABS: MAGNESIUM 1.3 MG/DL (1.5-2.4); PHOSPHORUS 1.7 MG/DL (2.3-4.5)
[2020-09-01] MEDS: normal saline 1000ml 1,000 ML IV SCH ×4 (01:51→21:00)
[2020-09-01] MEDS: heparin 10,000 units/1 ML INJ IV PRN ×4 (01:52→23:43)
[2020-09-01] MEDS: heparin 25,000 UNIT/250ml bag 250 ML IV SCH ×3 (01:55→21:24)
[2020-09-01 01:58] LABS: CREATINE KINASE 8280 U/L (39-308)
[2020-09-01] MEDS: tPA-cathflo 2mg/2ml IV flush 4 MG in normal saline 100ml IV soln 100 ML ICATH SCH ×2 (02:01→09:26)
--- NOTE | 2020-09-01 06:28 | NUR ---
Problems reprioritized. Patient report given, questions answered & plan of care reviewed with Desirae CORREA.
[2020-09-01 07:12] LABS: BASOPHILS # (AUTO) 0.1 X10'3 (0-0.2); BASOPHILS % (AUTO) 0.5 % (0-1); EOSINOPHILS # (AUTO) 0.1 X10'3 (0-0.9); EOSINOPHILS % (AUTO) 0.6 % (0-6); HEMATOCRIT 24.4 % (42.0-52.0); HEMOGLOBIN 8.4 g/dl (14.0-17.9); LYMPHOCYTES # (AUTO) 1.5 X10'3 (1.1-4.8); LYMPHOCYTES % (AUTO) 10.5 % (21-51); MEAN CORPUSCULAR HEMOGLOBIN 30.2 PG (27.0-31.0); MEAN CORPUSCULAR HGB CONC 34.6 g/dL (33.0-36.5); MEAN CORPUSCULAR VOLUME 87.5 FL (78-98); MEAN PLATELET VOLUME 8.2 FL (7.4-10.4); MONOCYTES # (AUTO) 1.4 X10'3 (0-0.9); MONOCYTES % (AUTO) 9.6 % (2-12); NEUTROPHILS # (AUTO) 11.5 X10'3 (1.8-7.7); NEUTROPHILS % (AUTO) 78.8 % (42-75); PLATELET COUNT 167 X10'3 (140-440); RED BLOOD COUNT 2.79 X10'6 (4.70-6.10); RED CELL DISTRIBUTION WIDTH 16.4 % (11.5-14.5); WHITE BLOOD COUNT 14.6 X10'3 (4.5-11.0)
[2020-09-01] MEDS: lactobacillus rhamnosus 10,000 MMU CELLS/CAPSULE PO SCH ×2 (08:53→20:16)
[2020-09-01] MEDS: clopidogrel 75mg tablet PO SCH (08:53)
[2020-09-01] MEDS: atorvastatin 20mg tablet PO SCH (08:53)
[2020-09-01] MEDS: diltiazem CD 180mg cap (once-daily) PO SCH (08:53)
[2020-09-01] MEDS: cilostazol 50mg tablet PO SCH ×2 (08:53→20:17)
[2020-09-01] MEDS: docusate sod 100mg capsule PO SCH ×2 (08:53→20:16)
[2020-09-01] MEDS: potassium Cl 20 mEq SR tablet PO PRN ×2 (08:54→13:13)
[2020-09-01] MEDS: magnesium Cl slow-release 64mg tablet PO PRN (08:54)
[2020-09-01] MEDS: K and/or MAG REPLACEMENT MC SCH (08:58)
[2020-09-01 10:34] LABS: CREATINE KINASE 7511 U/L (39-308)
[2020-09-01] MEDS: acetaminophen 325mg tablet PO PRN ×2 (11:14→17:17)
[2020-09-01] MEDS: ciprofloxacin 250mg tablet PO SCH ×2 (11:30→20:17)
[2020-09-01 13:50] LABS: PARTIAL THROMBOPLASTIN TIME 85 SECONDS (22-32)
--- NOTE | 2020-09-01 14:13 | NUR ---
Reassessment: Eating 75-100% of gualberto, 100% protein intake. S/p exploration of right calf, removal infected graft with femoral distal bypass, thrombectomy, angiogram, and wound vac placement. Pt admit DX R leg post-op wound infection, KAPIL, and RLE ischemia. Pt significant hx PVD per MD note. Last BM 08/27 and continues receiving routine colace. Rec: 1. continue heart healthy diet 2. trent smoothie BIDBL for wound healing needs 3. routine bowel care 4. weekly wts Addendum: 09/01/20 at [address] Amended: Links added.
--- NOTE | 2020-09-01 18:15 | NUR ---
Patient in room ICU 2038. I have received report from MADELINE Merrill and had the opportunity to ask questions and assume patient care.
[2020-09-01] MEDS: acetylcysteine 200 MG/ml 4ml vial PO SCH (20:18)
[2020-09-01] MEDS: docusate sod 250mg capsule PO SCH (20:22)
[2020-09-01] MEDS: polyethylene glycol 3350 17gm powd pack PO SCH (20:23)
[2020-09-01] MEDS ORDERED: VANCOMYCIN LEVEL IV ONE (22:30)
[2020-09-02] VITALS (24 sets, daily range): BP systolic 117–150; BP diastolic 64–80
[2020-09-02] MEDS: HYDROmorphone/NS 1 mg/ml CADD 50 ML IV SCH ×12 (01:00→23:00)
[2020-09-02] MEDS: acetaminophen 325mg tablet PO PRN ×2 (01:14→17:04)
[2020-09-02] MEDS: normal saline 1000ml 1,000 ML IV SCH ×4 (03:40→16:20)
--- NOTE | 2020-09-02 06:21 | NUR ---
Problems reprioritized. Patient report given, questions answered & plan of care reviewed with MADELINE Merrill.
[2020-09-02 06:27] LABS: BASOPHILS # (AUTO) 0.1 X10'3 (0-0.2); BASOPHILS % (AUTO) 0.3 % (0-1); EOSINOPHILS # (AUTO) 0.2 X10'3 (0-0.9); EOSINOPHILS % (AUTO) 1.1 % (0-6); HEMATOCRIT 23.5 % (42.0-52.0); HEMOGLOBIN 7.8 g/dl (14.0-17.9); LYMPHOCYTES % (AUTO) 13.1 % (21-51); MEAN CORPUSCULAR HEMOGLOBIN 29.1 PG (27.0-31.0); MEAN CORPUSCULAR HGB CONC 33.2 g/dL (33.0-36.5); MEAN CORPUSCULAR VOLUME 87.7 FL (78-98); MEAN PLATELET VOLUME 7.9 FL (7.4-10.4); MONOCYTES # (AUTO) 1.4 X10'3 (0-0.9); MONOCYTES % (AUTO) 9.4 % (2-12); NEUTROPHILS # (AUTO) 11.5 X10'3 (1.8-7.7); NEUTROPHILS % (AUTO) 76.1 % (42-75); PLATELET COUNT 226 X10'3 (140-440); RED BLOOD COUNT 2.68 X10'6 (4.70-6.10); WHITE BLOOD COUNT 15.1 X10'3 (4.5-11.0)
[2020-09-02 06:57] LABS: ALANINE AMINOTRANSFERASE 97 U/L (12-78); ALBUMIN 1.6 G/DL (3.4-5.0); ALBUMIN/GLOBULIN RATIO 0.4 (1.1-1.5); ALKALINE PHOSPHATASE 91 IU/L (46-116); ANION GAP 11 (8-16); ASPARTATE AMINO TRANSFERASE 205 U/L (10-37); BILIRUBIN,TOTAL 0.6 MG/DL (0.1-1.0); BLOOD UREA NITROGEN 13 MG/DL (7-18); BUN/CREATININE RATIO 9.4 (5.4-32.0); CALCIUM 7.3 MG/DL (8.5-10.1); CHLORIDE 106 MMOL/L (99-107); CREATININE 1.39 MG/DL (0.60-1.10); GLUCOSE 125 MG/DL (70-104); MAGNESIUM 1.5 MG/DL (1.5-2.4); PHOSPHORUS 2.5 MG/DL (2.3-4.5); POTASSIUM 3.2 MMOL/L (3.5-5.1); SODIUM 141 MMOL/L (135-145); TOTAL CARBON DIOXIDE 23.7 MMOL/L (24-32); TOTAL PROTEIN 5.4 G/DL (6.4-8.2); eGFR 54 ML/MIN
[2020-09-02] MEDS: heparin 10,000 units/1 ML INJ IV PRN (07:09)
[2020-09-02] MEDS: JUVEN Smoothie Arginine/Glut./Ca2+Bmb (Juven 19.3pkt) 240ml cup PO SCH ×3 (07:30→12:49)
[2020-09-02] MEDS: diltiazem CD 180mg cap (once-daily) PO SCH (07:49)
[2020-09-02] MEDS: clopidogrel 75mg tablet PO SCH (07:50)
[2020-09-02] MEDS: lactobacillus rhamnosus 10,000 MMU CELLS/CAPSULE PO SCH ×2 (07:50→20:34)
[2020-09-02] MEDS: ciprofloxacin 250mg tablet PO SCH ×2 (07:50→20:35)
[2020-09-02] MEDS: potassium Cl 20 mEq SR tablet PO PRN ×3 (07:50→17:04)
[2020-09-02] MEDS: atorvastatin 20mg tablet PO SCH (07:50)
[2020-09-02] MEDS: cilostazol 50mg tablet PO SCH ×2 (07:50→20:34)
[2020-09-02] MEDS: docusate sod 100mg capsule PO SCH ×2 (07:51→20:00)
[2020-09-02] MEDS: piperacillin/tazo 3.375gm/50ml 50 ML IV SCH ×2 (07:51→15:47)
[2020-09-02] MEDS: K and/or MAG REPLACEMENT MC SCH (07:52)
--- NOTE | 2020-09-02 09:29 | NUR ---
Care of patient assumed by this nurse. Patient alert and oriented. Resting in bed. Heparin bolus infusing. Aptt 57. 3500unit bolus given and rate increased to 2500 units from 2300. Dilaudid ONLINE RETAILER infusing for pain control. Wound vac in place and properly functioning. Dressing to right thigh c/d/i. Potassium replaced for lab value of 3.2. Next Aptt due at 1330. Will continue to monitor.
[2020-09-02] MEDS ORDERED: HYDROcodone/acetaminophen 5mg/325mg tablet PO PRN ×2 (12:20)
[2020-09-02] MEDS: heparin 25,000 UNIT/250ml bag 250 ML IV SCH ×2 (18:24→22:21)
[2020-09-02 20:11] LABS: PARTIAL THROMBOPLASTIN TIME 63 SECONDS (22-32)
[2020-09-02] MEDS: docusate sod 250mg capsule PO SCH (20:35)
[2020-09-02] MEDS: polyethylene glycol 3350 17gm powd pack PO SCH (20:35)
[2020-09-03] VITALS (24 sets, daily range): BP systolic 117–150; BP diastolic 61–99
[2020-09-03] MEDS: piperacillin/tazo 3.375gm/50ml 50 ML IV SCH ×3 (00:10→15:33)
[2020-09-03] MEDS: HYDROmorphone/NS 1 mg/ml CADD 50 ML IV SCH ×9 (01:00→17:00)
[2020-09-03 04:36] LABS: BASOPHILS # (AUTO) 0.1 X10'3 (0-0.2); BASOPHILS % (AUTO) 0.4 % (0-1); EOSINOPHILS # (AUTO) 0.2 X10'3 (0-0.9); EOSINOPHILS % (AUTO) 1.2 % (0-6); HEMATOCRIT 22.9 % (42.0-52.0); HEMOGLOBIN 7.4 g/dl (14.0-17.9); LYMPHOCYTES # (AUTO) 1.8 X10'3 (1.1-4.8); LYMPHOCYTES % (AUTO) 13.5 % (21-51); MEAN CORPUSCULAR HEMOGLOBIN 28.8 PG (27.0-31.0); MEAN CORPUSCULAR HGB CONC 32.6 g/dL (33.0-36.5); MEAN CORPUSCULAR VOLUME 88.4 FL (78-98); MEAN PLATELET VOLUME 7.9 FL (7.4-10.4); MONOCYTES # (AUTO) 0.9 X10'3 (0-0.9); MONOCYTES % (AUTO) 6.8 % (2-12); NEUTROPHILS # (AUTO) 10.6 X10'3 (1.8-7.7); NEUTROPHILS % (AUTO) 78.1 % (42-75); PLATELET COUNT 270 X10'3 (140-440); RED BLOOD COUNT 2.58 X10'6 (4.70-6.10); RED CELL DISTRIBUTION WIDTH 16.7 % (11.5-14.5); WHITE BLOOD COUNT 13.6 X10'3 (4.5-11.0)
[2020-09-03 04:47] LABS: ALANINE AMINOTRANSFERASE 88 U/L (12-78); ALBUMIN 1.6 G/DL (3.4-5.0); ALBUMIN/GLOBULIN RATIO 0.4 (1.1-1.5); ALKALINE PHOSPHATASE 95 IU/L (46-116); ANION GAP 8 (8-16); ASPARTATE AMINO TRANSFERASE 145 U/L (10-37); BILIRUBIN,TOTAL 0.4 MG/DL (0.1-1.0); BLOOD UREA NITROGEN 16 MG/DL (7-18); CALCIUM 7.8 MG/DL (8.5-10.1); CHLORIDE 105 MMOL/L (99-107); CREATININE 1.46 MG/DL (0.60-1.10); GLUCOSE 109 MG/DL (70-104); MAGNESIUM 1.4 MG/DL (1.5-2.4); PHOSPHORUS 3.3 MG/DL (2.3-4.5); POTASSIUM 3.6 MMOL/L (3.5-5.1); SODIUM 137 MMOL/L (135-145); TOTAL CARBON DIOXIDE 24.3 MMOL/L (24-32); TOTAL PROTEIN 5.7 G/DL (6.4-8.2); eGFR 51 ML/MIN
[2020-09-03] MEDS: heparin 25,000 UNIT/250ml bag 250 ML IV SCH ×3 (05:05→22:07)
[2020-09-03] MEDS: normal saline 1000ml 1,000 ML IV SCH ×4 (06:20→22:07)
--- NOTE | 2020-09-03 06:52 | NUR ---
Patient in room ICU 2038. I have received report from Keisha CORREA and had the opportunity to ask questions and assume patient care. Pt. is sleeping comfortably, in no apparent distress. Wound vac in place and functioning properly. NS @ 150 ml/HR running as well as heparin at 2900 units/HR.
[2020-09-03] MEDS: JUVEN Smoothie Arginine/Glut./Ca2+Bmb (Juven 19.3pkt) 240ml cup PO SCH ×2 (07:30→13:06)
[2020-09-03] MEDS: diltiazem CD 180mg cap (once-daily) PO SCH (07:49)
[2020-09-03] MEDS: atorvastatin 20mg tablet PO SCH (07:49)
[2020-09-03] MEDS: magnesium Cl slow-release 64mg tablet PO PRN ×2 (07:49→17:23)
[2020-09-03] MEDS: cilostazol 50mg tablet PO SCH ×2 (07:49→20:41)
[2020-09-03] MEDS: docusate sod 100mg capsule PO SCH ×2 (07:50→20:40)
[2020-09-03] MEDS: lactobacillus rhamnosus 10,000 MMU CELLS/CAPSULE PO SCH ×2 (07:50→20:41)
[2020-09-03] MEDS: ciprofloxacin 250mg tablet PO SCH ×2 (07:50→20:43)
[2020-09-03] MEDS: K and/or MAG REPLACEMENT MC SCH (08:00)
--- NOTE | 2020-09-03 10:17 | NUR ---
Called Dr. Dumont to inform him that nursing was able to obtain a pulse to his RLE via doppler. No answer. Will attempt again later.
--- NOTE | 2020-09-03 10:41 | NUR ---
Reassessment of RLE, pulse not palpable but able to hear a pulse via doppler. Temperature of skin is now warm, vs this AM it was cool. Pt. stated he is able to feel me touching the top of his foot. Will continue to monitor closely.
--- NOTE | 2020-09-03 11:00 | NUR ---
Per Dr. Dumont, go ahead and feed patient. He will be by to see him soon. No new orders.
--- NOTE | 2020-09-03 11:00 | NUR ---
APTT is 60, following orders per Dr. Dumont. Heparin gtt increased to 3100 units/HR. is aware of current gtt rate with attempts to keep APTT between 80-120.
[2020-09-03] MEDS: clopidogrel 75mg tablet PO SCH (11:22)
--- NOTE | 2020-09-03 11:30 | NUR ---
Dr. Dumont at bedside, doppler performed and pulse to RLE still present. Warmth noted to top of right food by MD. Bottom of right heel is blanching and pink. Purple color noted to RLE including some of the right foot but it is unknown if this is superficial or deep. MD is hopeful that the patient may regain some vasculature, or maybe only need part of his foot amputated. At this time, per MD the plan is to continue to monitor and possible switch back to oral anticoagulants tomorrow. Will continue to monitor. Patients mom was informed per the request of the patient.
[2020-09-03] MEDS ORDERED: nitroGLYCERIN 1gm ointment UD TP ONE (17:05)
--- NOTE | 2020-09-03 17:33 | NUR ---
After application of nitroglycerin to RLE, pt. reports shortly after being able to feel a slight sensation between his toes which is new for him. RLE still has a pulse via doppler. Top of foot remains warm and color is starting to return to right side and heel. Pt's heel is blanchable and pink. Will continue to monitor.
[2020-09-03] MEDS: acetaminophen 325mg tablet PO PRN ×3 (17:45→21:37)
--- NOTE | 2020-09-03 17:48 | NUR ---
Patient presents with temp of 38.4. Dr. Rocha aware. PRN Tylenol administered per orders. Pt. has had a low grade temp throughout the day and now meets criteria for administration of Tylenol. Pt. also required Tylenol yesterday for a fever. Fluids are being encouraged and he also has NS @ 150 ml/HR. Pt. denies any other symptoms at this time. Will report off to NOC shift for re-assessment of temp.
[2020-09-03] MEDS: polyethylene glycol 3350 17gm powd pack PO SCH (21:34)
[2020-09-03] MEDS: docusate sod 250mg capsule PO SCH (21:36)
[2020-09-04] VITALS (26 sets, daily range): BP systolic 111–148; BP diastolic 62–85
[2020-09-04] MEDS: HYDROmorphone/NS 1 mg/ml CADD 50 ML IV SCH ×5 (03:00→21:00)
[2020-09-04] MEDS: acetaminophen 325mg tablet PO PRN ×3 (03:09→17:19)
[2020-09-04 04:38] LABS: BASOPHILS % (AUTO) 0.4 % (0-1); EOSINOPHILS # (AUTO) 0.1 X10'3 (0-0.9); EOSINOPHILS % (AUTO) 1.3 % (0-6); LYMPHOCYTES # (AUTO) 1.8 X10'3 (1.1-4.8); LYMPHOCYTES % (AUTO) 15.3 % (21-51); MEAN CORPUSCULAR HEMOGLOBIN 28.8 PG (27.0-31.0); MEAN CORPUSCULAR HGB CONC 32.7 g/dL (33.0-36.5); MEAN PLATELET VOLUME 7.4 FL (7.4-10.4); MONOCYTES # (AUTO) 0.7 X10'3 (0-0.9); MONOCYTES % (AUTO) 5.9 % (2-12); NEUTROPHILS # (AUTO) 8.9 X10'3 (1.8-7.7); NEUTROPHILS % (AUTO) 77.1 % (42-75); PLATELET COUNT 296 X10'3 (140-440); RED BLOOD COUNT 2.42 X10'6 (4.70-6.10); RED CELL DISTRIBUTION WIDTH 17.2 % (11.5-14.5); WHITE BLOOD COUNT 11.5 X10'3 (4.5-11.0)
[2020-09-04 04:40] LABS: HEMATOCRIT 21.3 % (42.0-52.0)
--- NOTE | 2020-09-04 04:47 | NUR ---
spoke to nurse preactitioner regarding Hgb of 7.0 orderers received to do a redraw at 0800, no transfusion orders at this time.
[2020-09-04 04:48] LABS: ALANINE AMINOTRANSFERASE 84 U/L (12-78); ALBUMIN 1.6 G/DL (3.4-5.0); ALBUMIN/GLOBULIN RATIO 0.4 (1.1-1.5); ALKALINE PHOSPHATASE 92 IU/L (46-116); ANION GAP 7 (8-16); ASPARTATE AMINO TRANSFERASE 88 U/L (10-37); BILIRUBIN,TOTAL 0.4 MG/DL (0.1-1.0); BLOOD UREA NITROGEN 16 MG/DL (7-18); BUN/CREATININE RATIO 11.4 (5.4-32.0); CALCIUM 7.7 MG/DL (8.5-10.1); CHLORIDE 107 MMOL/L (99-107); GLUCOSE 121 MG/DL (70-104); MAGNESIUM 1.5 MG/DL (1.5-2.4); POTASSIUM 3.7 MMOL/L (3.5-5.1); SODIUM 138 MMOL/L (135-145); TOTAL PROTEIN 5.7 G/DL (6.4-8.2); eGFR 53 ML/MIN
[2020-09-04] MEDS: piperacillin/tazo 3.375gm/50ml 50 ML IV SCH ×3 (04:56→16:49)
--- NOTE | 2020-09-04 04:59 | NUR ---
Helped MADELINE Lawrence traveler with charting.
[2020-09-04 05:13] LABS: PARTIAL THROMBOPLASTIN TIME 101 SECONDS (22-32)
--- NOTE | 2020-09-04 05:14 | NUR ---
ptt 101 however this is within MD requested range no changes to the heparin drip at this time.
[2020-09-04] MEDS: JUVEN Smoothie Arginine/Glut./Ca2+Bmb (Juven 19.3pkt) 240ml cup PO SCH ×2 (07:52→12:30)
[2020-09-04] MEDS: cilostazol 50mg tablet PO SCH ×2 (07:53→20:19)
[2020-09-04] MEDS: ciprofloxacin 250mg tablet PO SCH ×2 (07:53→20:18)
[2020-09-04] MEDS: atorvastatin 20mg tablet PO SCH (07:53)
[2020-09-04] MEDS: docusate sod 100mg capsule PO SCH ×2 (07:53→20:18)
[2020-09-04] MEDS: diltiazem CD 180mg cap (once-daily) PO SCH (07:53)
[2020-09-04] MEDS: clopidogrel 75mg tablet PO SCH (07:53)
[2020-09-04] MEDS: lactobacillus rhamnosus 10,000 MMU CELLS/CAPSULE PO SCH ×2 (07:54→20:18)
--- NOTE | 2020-09-04 10:11 | NUR ---
New orders from Aj for a 1 unit of blood, Eliqus 5mg BID, and to D/C heparin.
[2020-09-04] MEDS ORDERED: apixaban 5mg tablet PO SCH ×3 (10:15→12:40)
[2020-09-04 11:10] LABS: PARTIAL THROMBOPLASTIN TIME 64 SECONDS (22-32)
[2020-09-04] MEDS ORDERED: heparin, porcine 5000 units/ml vial IV SCH (12:40)
[2020-09-04] MEDS ORDERED: heparin 25,000 UNIT/250ml bag 250 ML IV SCH (12:55)
--- NOTE | 2020-09-04 13:05 | NUR ---
Reassessment: Pt now with some perfusion to the right foot and planned BKA has been canceled for now per MD note. Pt continues with 75-100% PO intake though down to 0-25% x three meals since dinner 09/02. PO intake back up to 75-100% at breakfast this morning. Pt receiving Vidal smoothie BIDBL documented with 100% x 2 and refusals x 2, both at breakfast. D/w dietary to send a different flavor at breakfast to trial for better acceptance as pt currently receiving strawberry at both meals. LBM 09/02, receiving routine bowel care. Will continue to follow closely and make recommendations as appropriate. Rec: 1. continue heart healthy diet 2. Vidal smoothie BIDBL for wound healing needs; monitor need for additional protein 3. routine bowel care 4. weekly wts Addendum: 09/04/20 at [address] Amended: Links added.
[2020-09-04 16:28] LABS: BASOPHILS # (AUTO) 0.1 X10'3 (0-0.2); BASOPHILS % (AUTO) 0.5 % (0-1); EOSINOPHILS # (AUTO) 0.1 X10'3 (0-0.9); EOSINOPHILS % (AUTO) 1.2 % (0-6); HEMATOCRIT 25.2 % (42.0-52.0); HEMOGLOBIN 8.2 g/dl (14.0-17.9); LYMPHOCYTES # (AUTO) 1.6 X10'3 (1.1-4.8); LYMPHOCYTES % (AUTO) 14.1 % (21-51); MEAN CORPUSCULAR HGB CONC 32.7 g/dL (33.0-36.5); MEAN CORPUSCULAR VOLUME 88.7 FL (78-98); MONOCYTES # (AUTO) 0.7 X10'3 (0-0.9); MONOCYTES % (AUTO) 6.3 % (2-12); NEUTROPHILS # (AUTO) 8.6 X10'3 (1.8-7.7); NEUTROPHILS % (AUTO) 77.9 % (42-75); PLATELET COUNT 333 X10'3 (140-440); RED BLOOD COUNT 2.84 X10'6 (4.70-6.10); RED CELL DISTRIBUTION WIDTH 17.1 % (11.5-14.5)
[2020-09-04] MEDS: normal saline 1000ml 1,000 ML IV SCH ×2 (16:50→18:28)
[2020-09-04 16:57] LABS: PARTIAL THROMBOPLASTIN TIME 126 SECONDS (22-32)
--- NOTE | 2020-09-04 18:14 | NUR ---
Problems reprioritized. Patient report given, questions answered & plan of care reviewed with MADELINE Simon.
--- NOTE | 2020-09-04 18:15 | NUR ---
Problems reprioritized. Patient report given, questions answered & plan of care reviewed with MADELINE Simon.
[2020-09-04] MEDS ORDERED: lactobacillus rhamnosus 10,000 MMU CELLS/CAPSULE PO SCH (20:00)
[2020-09-04] MEDS: docusate sod 250mg capsule PO SCH (20:18)
[2020-09-04] MEDS: apixaban 5mg tablet PO SCH (20:18)
[2020-09-04 20:32] LABS: PARTIAL THROMBOPLASTIN TIME 138 SECONDS (22-32)
[2020-09-04] MEDS: polyethylene glycol 3350 17gm powd pack PO SCH (20:33)
--- NOTE | 2020-09-04 23:14 | NUR ---
pt and all belongings transferred to room 3028k report given with time allowed for questions
[2020-09-05] MEDS: piperacillin/tazo 3.375gm/50ml 50 ML IV SCH ×4 (00:13→23:58)
[2020-09-05] MEDS: HYDROmorphone/NS 1 mg/ml CADD 50 ML IV SCH ×12 (01:00→23:00)
[2020-09-05 02:00] VITALS: BP 142/88
[2020-09-05 04:39] LABS: BASOPHILS % (AUTO) 0.3 % (0-1); EOSINOPHILS # (AUTO) 0.2 X10'3 (0-0.9); EOSINOPHILS % (AUTO) 1.2 % (0-6); HEMATOCRIT 27.7 % (42.0-52.0); LYMPHOCYTES # (AUTO) 1.7 X10'3 (1.1-4.8); LYMPHOCYTES % (AUTO) 13.3 % (21-51); MEAN CORPUSCULAR HEMOGLOBIN 29.2 PG (27.0-31.0); MEAN CORPUSCULAR HGB CONC 32.6 g/dL (33.0-36.5); MEAN CORPUSCULAR VOLUME 89.4 FL (78-98); MEAN PLATELET VOLUME 7.2 FL (7.4-10.4); MONOCYTES % (AUTO) 0.2 % (2-12); PLATELET COUNT 363 X10'3 (140-440); RED CELL DISTRIBUTION WIDTH 16.9 % (11.5-14.5)
[2020-09-05 04:46] LABS: PARTIAL THROMBOPLASTIN TIME 33 SECONDS (22-32)
[2020-09-05 04:47] LABS: ALANINE AMINOTRANSFERASE 83 U/L (12-78); ALBUMIN 1.9 G/DL (3.4-5.0); ALBUMIN/GLOBULIN RATIO 0.4 (1.1-1.5); ALKALINE PHOSPHATASE 108 IU/L (46-116); ANION GAP 12 (8-16); ASPARTATE AMINO TRANSFERASE 69 U/L (10-37); BILIRUBIN,TOTAL 0.4 MG/DL (0.1-1.0); BLOOD UREA NITROGEN 17 MG/DL (7-18); BUN/CREATININE RATIO 10.8 (5.4-32.0); CALCIUM 8.6 MG/DL (8.5-10.1); CHLORIDE 104 MMOL/L (99-107); CREATININE 1.57 MG/DL (0.60-1.10); GLUCOSE 118 MG/DL (70-104); MAGNESIUM 1.6 MG/DL (1.5-2.4); PHOSPHORUS 3.7 MG/DL (2.3-4.5); POTASSIUM 3.8 MMOL/L (3.5-5.1); SODIUM 139 MMOL/L (135-145); TOTAL CARBON DIOXIDE 22.8 MMOL/L (24-32); TOTAL PROTEIN 6.9 G/DL (6.4-8.2); eGFR 47 ML/MIN
[2020-09-05 06:30] VITALS: BP 120/70
--- NOTE | 2020-09-05 06:41 | NUR ---
Problems reprioritized. Patient report given, questions answered & plan of care reviewed with Ade CORREA.
--- NOTE | 2020-09-05 06:42 | NUR ---
Orientee documentation: I have reviewed and agree with all interventions, assessments performed and documented by Laxmi CORREA.
[2020-09-05 07:25] LABS: TOTAL CELLS COUNTED 100
[2020-09-05 07:26] LABS: ANISOCYTOSIS 1+; PLATELET ESTIMATE NORMAL
[2020-09-05 07:27] LABS: POLYCHROMASIA FEW; SCHISTOCYTES FEW
[2020-09-05 07:28] LABS: TOXIC GRANULATION 1+; TOXIC VACUOLATION FEW
[2020-09-05] MEDS: JUVEN Smoothie Arginine/Glut./Ca2+Bmb (Juven 19.3pkt) 240ml cup PO SCH ×2 (07:30→12:15)
--- NOTE | 2020-09-05 07:32 | NUR ---
Received report from Nalini CORREA, [facility]. Addendum: 09/05/20 at 0733 by Ade Gallardo RN received report at 2144
[2020-09-05] MEDS: atorvastatin 20mg tablet PO SCH (09:20)
[2020-09-05] MEDS: lactobacillus rhamnosus 10,000 MMU CELLS/CAPSULE PO SCH ×2 (09:20→20:08)
[2020-09-05] MEDS: ciprofloxacin 250mg tablet PO SCH ×2 (09:20→20:08)
[2020-09-05] MEDS: clopidogrel 75mg tablet PO SCH (09:20)
[2020-09-05] MEDS: cilostazol 50mg tablet PO SCH ×2 (09:21→20:09)
[2020-09-05] MEDS: docusate sod 100mg capsule PO SCH ×2 (09:21→20:00)
[2020-09-05] MEDS: apixaban 5mg tablet PO SCH ×2 (09:21→20:09)
[2020-09-05] MEDS: diltiazem CD 180mg cap (once-daily) PO SCH (09:21)
[2020-09-05 11:00] VITALS: BP 138/81
[2020-09-05] MEDS: normal saline 1000ml 1,000 ML IV SCH (14:28)
[2020-09-05 15:00] VITALS: BP 126/75
[2020-09-05 18:00] VITALS: BP 122/70
--- NOTE | 2020-09-05 18:48 | NUR ---
Gave report to Ariana CORREA, transferred care.
--- NOTE | 2020-09-05 18:50 | NUR ---
Patient in room PCU 3024. I have received report from MADELINE Booker and had the opportunity to ask questions and assume patient care.
[2020-09-05] MEDS: docusate sod 250mg capsule PO SCH (21:00)
[2020-09-05] MEDS: polyethylene glycol 3350 17gm powd pack PO SCH (21:00)
[2020-09-05 22:00] VITALS: BP 136/72
[2020-09-06] VITALS (7 sets, daily range): BP systolic 90–127; BP diastolic 52–73
[2020-09-06] MEDS: HYDROmorphone/NS 1 mg/ml CADD 50 ML IV SCH ×11 (01:00→23:00)
--- NOTE | 2020-09-06 06:18 | NUR ---
Patient in room PCU 3024. I have received report from MADELINE Lane and had the opportunity to ask questions and assume patient care.
--- NOTE | 2020-09-06 06:21 | NUR ---
Problems reprioritized. Patient report given, questions answered & plan of care reviewed with MADELINE Fatima.
[2020-09-06] MEDS: JUVEN Smoothie Arginine/Glut./Ca2+Bmb (Juven 19.3pkt) 240ml cup PO SCH ×2 (07:30→12:30)
[2020-09-06] MEDS: docusate sod 100mg capsule PO SCH ×2 (08:00→20:00)
[2020-09-06 08:09] LABS: ALANINE AMINOTRANSFERASE 74 U/L (12-78); ALBUMIN/GLOBULIN RATIO 0.4 (1.1-1.5); ALKALINE PHOSPHATASE 97 IU/L (46-116); ANION GAP 12 (8-16); ASPARTATE AMINO TRANSFERASE 49 U/L (10-37); BILIRUBIN,TOTAL 0.4 MG/DL (0.1-1.0); BLOOD UREA NITROGEN 20 MG/DL (7-18); BUN/CREATININE RATIO 12.5 (5.4-32.0); CALCIUM 9.4 MG/DL (8.5-10.1); CHLORIDE 103 MMOL/L (99-107); GLUCOSE 112 MG/DL (70-104); MAGNESIUM 1.9 MG/DL (1.5-2.4); PARTIAL THROMBOPLASTIN TIME 35 SECONDS (22-32); PHOSPHORUS 4.5 MG/DL (2.3-4.5); POTASSIUM 3.8 MMOL/L (3.5-5.1); SODIUM 137 MMOL/L (135-145); TOTAL PROTEIN 7.2 G/DL (6.4-8.2); eGFR 46 ML/MIN
[2020-09-06 08:10] LABS: BASOPHILS # (AUTO) 0.1 X10'3 (0-0.2); BASOPHILS % (AUTO) 0.4 % (0-1); EOSINOPHILS # (AUTO) 0.2 X10'3 (0-0.9); EOSINOPHILS % (AUTO) 1.9 % (0-6); HEMATOCRIT 27.8 % (42.0-52.0); HEMOGLOBIN 9.3 g/dl (14.0-17.9); LYMPHOCYTES # (AUTO) 1.6 X10'3 (1.1-4.8); LYMPHOCYTES % (AUTO) 13.2 % (21-51); MEAN CORPUSCULAR HEMOGLOBIN 29.8 PG (27.0-31.0); MEAN CORPUSCULAR HGB CONC 33.4 g/dL (33.0-36.5); MEAN CORPUSCULAR VOLUME 89.2 FL (78-98); MEAN PLATELET VOLUME 7.2 FL (7.4-10.4); MONOCYTES # (AUTO) 0.8 X10'3 (0-0.9); MONOCYTES % (AUTO) 6.3 % (2-12); NEUTROPHILS # (AUTO) 9.6 X10'3 (1.8-7.7); NEUTROPHILS % (AUTO) 78.2 % (42-75); PLATELET COUNT 473 X10'3 (140-440); RED BLOOD COUNT 3.12 X10'6 (4.70-6.10); RED CELL DISTRIBUTION WIDTH 16.7 % (11.5-14.5); WHITE BLOOD COUNT 12.3 X10'3 (4.5-11.0)
[2020-09-06] MEDS: clopidogrel 75mg tablet PO SCH (09:24)
[2020-09-06] MEDS: apixaban 5mg tablet PO SCH ×2 (09:25→20:26)
[2020-09-06] MEDS: cilostazol 50mg tablet PO SCH ×2 (09:25→20:27)
[2020-09-06] MEDS: lactobacillus rhamnosus 10,000 MMU CELLS/CAPSULE PO SCH ×2 (09:26→20:26)
[2020-09-06] MEDS: diltiazem CD 180mg cap (once-daily) PO SCH (09:26)
[2020-09-06] MEDS: ciprofloxacin 250mg tablet PO SCH ×2 (09:26→20:26)
[2020-09-06] MEDS: atorvastatin 20mg tablet PO SCH (09:26)
[2020-09-06] MEDS: piperacillin/tazo 3.375gm/50ml 50 ML IV SCH ×2 (09:34→17:21)
[2020-09-06] MEDS: normal saline 1000ml 1,000 ML IV SCH (10:28)
--- NOTE | 2020-09-06 15:00 | NUR ---
Problems reprioritized. Patient report given, questions answered & plan of care reviewed with MADELINE Carey. Pt sitting up in bed, no signs of distress. All pt needs met at this time.
--- NOTE | 2020-09-06 15:00 | NUR ---
Patient in room [facility] 3024. I have received report from Akua Byrd and had the opportunity to ask questions and assume patient care. Addendum: 09/06/20 at 1924 by Cherry Callahan RN Amended: Links added.
--- NOTE | 2020-09-06 16:00 | NUR ---
Pt. sitting up in bed with c/o pain 03/09; CADD pump in place for pain control. Reminded pt. to push pain button q 10min as ordered. Pt. verbalized understanding. Wound vac to rt. lower extremity patent with sealing intact. Lior. incisions to thighs with wayne noted, rt with drsg in place and left RIGHT OF WAY SUPERVISOR at this time. Assisted pt. to and from the bedside commode without difficulties. Call light within reach. Bed in low position. Addendum: 09/06/20 at 1935 by Cherry Callahan RN Amended: Links added.
--- NOTE | 2020-09-06 18:00 | NUR ---
Problems reprioritized. Patient report given, questions answered & plan of care reviewed with Ines CORREA. Addendum: 09/06/20 at 1926 by Cherry Callahan RN Amended: Links added.
--- NOTE | 2020-09-06 18:29 | NUR ---
Patient in room PCU 3024. I have received report from Cherry CORREA and had the opportunity to ask questions and assume patient care.
[2020-09-06] MEDS: docusate sod 250mg capsule PO SCH (20:27)
[2020-09-06] MEDS: polyethylene glycol 3350 17gm powd pack PO SCH (20:27)
[2020-09-07] MEDS: piperacillin/tazo 3.375gm/50ml 50 ML IV SCH ×3 (00:36→16:13)
[2020-09-07] MEDS: normal saline 1000ml 1,000 ML IV SCH (00:40)
[2020-09-07] MEDS: HYDROmorphone/NS 1 mg/ml CADD 50 ML IV SCH ×9 (01:00→17:00)
[2020-09-07 02:00] VITALS: BP 115/73
[2020-09-07 06:00] VITALS: BP 128/77
--- NOTE | 2020-09-07 06:00 | NUR ---
report received by benny sawyer. pt laying on bed with bed at lowest position. pt has a wound vac with proper sealing. dressings cdi. pt has a cadd, assesment performed. pt un able to wiggle toes to right leg. pt denies any acute dtsress. will assume care.
--- NOTE | 2020-09-07 06:21 | NUR ---
Problems reprioritized. Patient report given, questions answered & plan of care reviewed with Roby CORREA.
[2020-09-07] MEDS: JUVEN Smoothie Arginine/Glut./Ca2+Bmb (Juven 19.3pkt) 240ml cup PO SCH ×2 (07:30→12:43)
[2020-09-07] MEDS: cilostazol 50mg tablet PO SCH ×2 (07:48→20:43)
[2020-09-07] MEDS: atorvastatin 20mg tablet PO SCH (07:48)
[2020-09-07] MEDS: lactobacillus rhamnosus 10,000 MMU CELLS/CAPSULE PO SCH ×2 (07:48→20:44)
[2020-09-07] MEDS: apixaban 5mg tablet PO SCH ×2 (07:49→20:43)
[2020-09-07] MEDS: ciprofloxacin 250mg tablet PO SCH ×2 (07:49→20:44)
[2020-09-07] MEDS: diltiazem CD 180mg cap (once-daily) PO SCH (07:49)
[2020-09-07] MEDS: clopidogrel 75mg tablet PO SCH (07:49)
[2020-09-07] MEDS: docusate sod 100mg capsule PO SCH ×2 (07:50→20:00)
[2020-09-07 08:36] LABS: BASOPHILS # (AUTO) 0.1 X10'3 (0-0.2); BASOPHILS % (AUTO) 0.7 % (0-1); EOSINOPHILS # (AUTO) 0.2 X10'3 (0-0.9); HEMATOCRIT 28.2 % (42.0-52.0); HEMOGLOBIN 9.2 g/dl (14.0-17.9); LYMPHOCYTES # (AUTO) 1.9 X10'3 (1.1-4.8); LYMPHOCYTES % (AUTO) 17.2 % (21-51); MEAN CORPUSCULAR HEMOGLOBIN 28.9 PG (27.0-31.0); MEAN CORPUSCULAR HGB CONC 32.7 g/dL (33.0-36.5); MEAN CORPUSCULAR VOLUME 88.5 FL (78-98); MEAN PLATELET VOLUME 7.2 FL (7.4-10.4); MONOCYTES # (AUTO) 0.8 X10'3 (0-0.9); MONOCYTES % (AUTO) 7.3 % (2-12); NEUTROPHILS # (AUTO) 8.2 X10'3 (1.8-7.7); NEUTROPHILS % (AUTO) 72.8 % (42-75); PLATELET COUNT 520 X10'3 (140-440); RED BLOOD COUNT 3.19 X10'6 (4.70-6.10); RED CELL DISTRIBUTION WIDTH 16.5 % (11.5-14.5); WHITE BLOOD COUNT 11.3 X10'3 (4.5-11.0)
[2020-09-07 08:44] LABS: PARTIAL THROMBOPLASTIN TIME 34 SECONDS (22-32)
[2020-09-07 09:20] LABS: ALANINE AMINOTRANSFERASE 69 U/L (12-78); ALBUMIN 2.1 G/DL (3.4-5.0); ALBUMIN/GLOBULIN RATIO 0.4 (1.1-1.5); ALKALINE PHOSPHATASE 89 IU/L (46-116); ANION GAP 12 (8-16); ASPARTATE AMINO TRANSFERASE 43 U/L (10-37); BILIRUBIN,TOTAL 0.3 MG/DL (0.1-1.0); BLOOD UREA NITROGEN 24 MG/DL (7-18); CALCIUM 8.6 MG/DL (8.5-10.1); CHLORIDE 102 MMOL/L (99-107); GLUCOSE 108 MG/DL (70-104); MAGNESIUM 1.8 MG/DL (1.5-2.4); PHOSPHORUS 4.6 MG/DL (2.3-4.5); SODIUM 137 MMOL/L (135-145); TOTAL CARBON DIOXIDE 22.8 MMOL/L (24-32); TOTAL PROTEIN 7.2 G/DL (6.4-8.2); eGFR 46 ML/MIN
[2020-09-07 09:33] LABS: ANISOCYTOSIS 1+; HYPOCHROMASIA 1+; PLATELET ESTIMATE INCREASED; ROULEAUX 1+; TOTAL CELLS COUNTED 100
[2020-09-07 11:00] VITALS: BP 120/73
--- NOTE | 2020-09-07 12:31 | NUR ---
Reassessment: Pt continues with 75-100% PO intake. Pt receiving Vidal smoothie BIDBL 75-100% intake. Rec: 1. continue heart healthy diet 2. Vidal smoothie BIDBL for wound healing needs; monitor need for additional protein 3. routine bowel care 4. weekly wts Addendum: 09/07/20 at [address] Amended: Links added.
[2020-09-07 15:00] VITALS: BP 134/76
[2020-09-07 18:00] VITALS: BP 131/80
[2020-09-07] MEDS: docusate sod 250mg capsule PO SCH (21:00)
[2020-09-07] MEDS: polyethylene glycol 3350 17gm powd pack PO SCH (21:00)
[2020-09-07 22:00] VITALS: BP 118/78
[2020-09-08] MEDS: piperacillin/tazo 3.375gm/50ml 50 ML IV SCH ×3 (00:34→15:47)
[2020-09-08] MEDS: HYDROcodone/acetaminophen 10/325mg tab PO PRN ×6 (00:34→23:59)
[2020-09-08 02:00] VITALS: BP 117/67
[2020-09-08] MEDS: normal saline 1000ml 1,000 ML IV SCH (02:28)
[2020-09-08 06:00] VITALS: BP 117/77
--- NOTE | 2020-09-08 06:25 | NUR ---
Patient report given, questions answered & plan of care reviewed with MADELINE Ca.
--- NOTE | 2020-09-08 06:54 | NUR ---
report received by cammy sawyer. pt laying on bed with bed at lowest position. pt sleeping at this time. pt wound vac at 125 minimal driangae. pt has iv in place to left ac. no distress noted will continue to monitor and assume care.
[2020-09-08] MEDS: JUVEN Smoothie Arginine/Glut./Ca2+Bmb (Juven 19.3pkt) 240ml cup PO SCH ×3 (07:33→12:37)
[2020-09-08] MEDS: cilostazol 50mg tablet PO SCH ×2 (07:34→19:54)
[2020-09-08] MEDS: apixaban 5mg tablet PO SCH ×2 (07:34→19:55)
[2020-09-08] MEDS: ciprofloxacin 250mg tablet PO SCH ×2 (07:34→19:55)
[2020-09-08] MEDS: lactobacillus rhamnosus 10,000 MMU CELLS/CAPSULE PO SCH ×2 (07:35→19:55)
[2020-09-08] MEDS: diltiazem CD 180mg cap (once-daily) PO SCH (07:35)
[2020-09-08] MEDS: clopidogrel 75mg tablet PO SCH (07:35)
[2020-09-08] MEDS: atorvastatin 20mg tablet PO SCH (07:35)
[2020-09-08] MEDS: docusate sod 100mg capsule PO SCH ×2 (07:37→20:00)
[2020-09-08 07:53] LABS: BASOPHILS # (AUTO) 0.1 X10'3 (0-0.2); BASOPHILS % (AUTO) 0.8 % (0-1); EOSINOPHILS # (AUTO) 0.2 X10'3 (0-0.9); EOSINOPHILS % (AUTO) 2.4 % (0-6); HEMATOCRIT 28.7 % (42.0-52.0); HEMOGLOBIN 9.5 g/dl (14.0-17.9); LYMPHOCYTES % (AUTO) 20.5 % (21-51); MEAN CORPUSCULAR HEMOGLOBIN 29.5 PG (27.0-31.0); MEAN CORPUSCULAR HGB CONC 33.1 g/dL (33.0-36.5); MEAN CORPUSCULAR VOLUME 88.9 FL (78-98); MEAN PLATELET VOLUME 6.9 FL (7.4-10.4); MONOCYTES # (AUTO) 0.7 X10'3 (0-0.9); MONOCYTES % (AUTO) 7.3 % (2-12); NEUTROPHILS # (AUTO) 6.6 X10'3 (1.8-7.7); PLATELET COUNT 562 X10'3 (140-440); RED BLOOD COUNT 3.23 X10'6 (4.70-6.10); RED CELL DISTRIBUTION WIDTH 16.4 % (11.5-14.5); WHITE BLOOD COUNT 9.6 X10'3 (4.5-11.0)
[2020-09-08 07:55] LABS: PARTIAL THROMBOPLASTIN TIME 33 SECONDS (22-32)
[2020-09-08 08:43] LABS: ALANINE AMINOTRANSFERASE 67 U/L (12-78); ALBUMIN 2.1 G/DL (3.4-5.0); ALBUMIN/GLOBULIN RATIO 0.4 (1.1-1.5); ALKALINE PHOSPHATASE 85 IU/L (46-116); ANION GAP 10 (8-16); ASPARTATE AMINO TRANSFERASE 42 U/L (10-37); BILIRUBIN,TOTAL 0.2 MG/DL (0.1-1.0); BLOOD UREA NITROGEN 27 MG/DL (7-18); BUN/CREATININE RATIO 16.6 (5.4-32.0); CALCIUM 8.5 MG/DL (8.5-10.1); CHLORIDE 104 MMOL/L (99-107); CREATININE 1.63 MG/DL (0.60-1.10); GLUCOSE 108 MG/DL (70-104); PHOSPHORUS 4.6 MG/DL (2.3-4.5); SODIUM 138 MMOL/L (135-145); TOTAL CARBON DIOXIDE 23.9 MMOL/L (24-32); TOTAL PROTEIN 7.3 G/DL (6.4-8.2); eGFR 45 ML/MIN
[2020-09-08 11:00] VITALS: BP 102/70
[2020-09-08 15:00] VITALS: BP 106/76
[2020-09-08] MEDS ORDERED: HYDROcodone/acetaminophen 10/325mg tab PO PRN (16:35)
[2020-09-08 18:00] VITALS: BP 136/79
--- NOTE | 2020-09-08 18:35 | NUR ---
Patient report given, questions answered & plan of care reviewed with cammy sawyer. pt has a heel protector to right heel. pt denies any distress. transfering care.
[2020-09-08] MEDS: docusate sod 250mg capsule PO SCH (21:00)
[2020-09-08] MEDS: polyethylene glycol 3350 17gm powd pack PO SCH (21:00)
[2020-09-08 22:00] VITALS: BP 118/77
[2020-09-09 02:00] VITALS: BP 106/69
[2020-09-09 02:25] LABS: BASOPHILS # (AUTO) 0.1 X10'3 (0-0.2); BASOPHILS % (AUTO) 1.3 % (0-1); EOSINOPHILS # (AUTO) 0.2 X10'3 (0-0.9); EOSINOPHILS % (AUTO) 2.2 % (0-6); HEMATOCRIT 29.3 % (42.0-52.0); HEMOGLOBIN 9.9 g/dl (14.0-17.9); LYMPHOCYTES # (AUTO) 2.1 X10'3 (1.1-4.8); LYMPHOCYTES % (AUTO) 22.3 % (21-51); MEAN CORPUSCULAR HEMOGLOBIN 29.4 PG (27.0-31.0); MEAN CORPUSCULAR HGB CONC 33.7 g/dL (33.0-36.5); MEAN CORPUSCULAR VOLUME 87.2 FL (78-98); MEAN PLATELET VOLUME 6.8 FL (7.4-10.4); MONOCYTES # (AUTO) 0.7 X10'3 (0-0.9); MONOCYTES % (AUTO) 7.7 % (2-12); NEUTROPHILS # (AUTO) 6.3 X10'3 (1.8-7.7); NEUTROPHILS % (AUTO) 66.5 % (42-75); PLATELET COUNT 571 X10'3 (140-440); RED BLOOD COUNT 3.36 X10'6 (4.70-6.10); RED CELL DISTRIBUTION WIDTH 16.8 % (11.5-14.5); WHITE BLOOD COUNT 9.5 X10'3 (4.5-11.0)
[2020-09-09 02:36] LABS: PARTIAL THROMBOPLASTIN TIME 34 SECONDS (22-32)
[2020-09-09 02:38] LABS: ALANINE AMINOTRANSFERASE 62 U/L (12-78); ALBUMIN 2.1 G/DL (3.4-5.0); ALBUMIN/GLOBULIN RATIO 0.4 (1.1-1.5); ALKALINE PHOSPHATASE 77 IU/L (46-116); ANION GAP 11 (8-16); BILIRUBIN,TOTAL 0.3 MG/DL (0.1-1.0); BLOOD UREA NITROGEN 29 MG/DL (7-18); BUN/CREATININE RATIO 18.6 (5.4-32.0); CALCIUM 8.4 MG/DL (8.5-10.1); CHLORIDE 102 MMOL/L (99-107); CREATININE 1.56 MG/DL (0.60-1.10); GLUCOSE 115 MG/DL (70-104); MAGNESIUM 1.8 MG/DL (1.5-2.4); SODIUM 135 MMOL/L (135-145); TOTAL CARBON DIOXIDE 22.2 MMOL/L (24-32); TOTAL PROTEIN 7.3 G/DL (6.4-8.2); eGFR 47 ML/MIN
[2020-09-09 02:42] LABS: POTASSIUM 4.1 MMOL/L (3.5-5.1)
[2020-09-09 02:43] LABS: ASPARTATE AMINO TRANSFERASE 43 U/L (10-37)
[2020-09-09 06:00] VITALS: BP 109/64
--- NOTE | 2020-09-09 06:46 | NUR ---
Patient report given, questions answered & plan of care reviewed with MADELINE Mcguire.
--- NOTE | 2020-09-09 06:54 | NUR ---
Patient in room PCU 3024. I have received report from Tonya CORREA and had the opportunity to ask questions and assume patient care.
[2020-09-09] MEDS: JUVEN Smoothie Arginine/Glut./Ca2+Bmb (Juven 19.3pkt) 240ml cup PO SCH ×4 (07:30→13:16)
[2020-09-09] MEDS: docusate sod 100mg capsule PO SCH ×2 (08:00→20:00)
[2020-09-09] MEDS: piperacillin/tazo 3.375gm/50ml 50 ML IV SCH ×3 (08:00→16:09)
[2020-09-09] MEDS: apixaban 5mg tablet PO SCH ×2 (08:49→20:00)
[2020-09-09] MEDS: clopidogrel 75mg tablet PO SCH (08:49)
[2020-09-09] MEDS: lactobacillus rhamnosus 10,000 MMU CELLS/CAPSULE PO SCH ×2 (08:49→20:00)
[2020-09-09] MEDS: atorvastatin 20mg tablet PO SCH (08:50)
[2020-09-09] MEDS: diltiazem CD 180mg cap (once-daily) PO SCH (08:50)
[2020-09-09] MEDS: ciprofloxacin 250mg tablet PO SCH ×2 (08:50→20:00)
[2020-09-09] MEDS: cilostazol 50mg tablet PO SCH ×2 (08:51→20:01)
[2020-09-09] MEDS: HYDROcodone/acetaminophen 10/325mg tab PO PRN ×3 (08:53→19:59)
--- NOTE | 2020-09-09 09:00 | NUR ---
Pt has a schedule Zosyn antibiotic at 0800, when entered the room the zosyn from the previous shift was still infusing. Noc nurse was having trouble with pump therefore antibiotic was stopped, then continued early this am. Pt's Zosyn from last shift finished at 0900. Pharmacy was called and I was advised to skip the 0800 and continue with the next schedule zosyn per pharmacist.
[2020-09-09 11:00] VITALS: BP 118/78
[2020-09-09 15:00] VITALS: BP 128/78
[2020-09-09] MEDS: gabapentin 400mg capsule PO SCH (16:09)
--- NOTE | 2020-09-09 18:42 | NUR ---
Problems reprioritized. Patient report given, questions answered & plan of care reviewed with Shira CORREA.
[2020-09-09] MEDS: polyethylene glycol 3350 17gm powd pack PO SCH (21:00)
[2020-09-09] MEDS: docusate sod 250mg capsule PO SCH (21:00)
[2020-09-10] MEDS: piperacillin/tazo 3.375gm/50ml 50 ML IV SCH ×3 (01:05→16:16)
[2020-09-10] MEDS: gabapentin 400mg capsule PO SCH ×3 (01:28→16:15)
[2020-09-10] MEDS: HYDROcodone/acetaminophen 10/325mg tab PO PRN ×3 (05:49→14:42)
[2020-09-10 06:46] LABS: BASOPHILS # (AUTO) 0.1 X10'3 (0-0.2); BASOPHILS % (AUTO) 1.1 % (0-1); EOSINOPHILS # (AUTO) 0.2 X10'3 (0-0.9); EOSINOPHILS % (AUTO) 1.9 % (0-6); HEMATOCRIT 27.8 % (42.0-52.0); HEMOGLOBIN 9.2 g/dl (14.0-17.9); MEAN CORPUSCULAR HEMOGLOBIN 28.9 PG (27.0-31.0); MEAN CORPUSCULAR HGB CONC 33.1 g/dL (33.0-36.5); MEAN CORPUSCULAR VOLUME 87.3 FL (78-98); MEAN PLATELET VOLUME 6.8 FL (7.4-10.4); MONOCYTES # (AUTO) 0.7 X10'3 (0-0.9); MONOCYTES % (AUTO) 7.5 % (2-12); NEUTROPHILS % (AUTO) 67.5 % (42-75); PLATELET COUNT 561 X10'3 (140-440); RED BLOOD COUNT 3.18 X10'6 (4.70-6.10); RED CELL DISTRIBUTION WIDTH 16.4 % (11.5-14.5)
[2020-09-10 06:57] LABS: PARTIAL THROMBOPLASTIN TIME 33 SECONDS (22-32)
--- NOTE | 2020-09-10 07:00 | NUR ---
Patient in room PCU 3024. I have received report from EFREN CORREA and had the opportunity to ask questions and assume patient care.
[2020-09-10 07:05] VITALS: BP 114/67
[2020-09-10 07:20] LABS: ALANINE AMINOTRANSFERASE 52 U/L (12-78); ALBUMIN 2.1 G/DL (3.4-5.0); ALBUMIN/GLOBULIN RATIO 0.4 (1.1-1.5); ALKALINE PHOSPHATASE 73 IU/L (46-116); ANION GAP 9 (8-16); ASPARTATE AMINO TRANSFERASE 29 U/L (10-37); BILIRUBIN,TOTAL 0.2 MG/DL (0.1-1.0); BLOOD UREA NITROGEN 26 MG/DL (7-18); BUN/CREATININE RATIO 16.7 (5.4-32.0); CALCIUM 8.3 MG/DL (8.5-10.1); CHLORIDE 105 MMOL/L (99-107); CREATININE 1.56 MG/DL (0.60-1.10); GLUCOSE 112 MG/DL (70-104); MAGNESIUM 1.9 MG/DL (1.5-2.4); PHOSPHORUS 4.6 MG/DL (2.3-4.5); POTASSIUM 3.8 MMOL/L (3.5-5.1); SODIUM 139 MMOL/L (135-145); TOTAL PROTEIN 7.1 G/DL (6.4-8.2); eGFR 47 ML/MIN
[2020-09-10] MEDS: JUVEN Smoothie Arginine/Glut./Ca2+Bmb (Juven 19.3pkt) 240ml cup PO SCH ×2 (07:30→12:30)
[2020-09-10] MEDS: docusate sod 100mg capsule PO SCH ×2 (08:00→20:00)
[2020-09-10] MEDS: apixaban 5mg tablet PO SCH ×2 (08:49→21:47)
[2020-09-10] MEDS: lactobacillus rhamnosus 10,000 MMU CELLS/CAPSULE PO SCH ×2 (08:49→21:47)
[2020-09-10] MEDS: atorvastatin 20mg tablet PO SCH (08:50)
[2020-09-10] MEDS: diltiazem CD 180mg cap (once-daily) PO SCH (08:50)
[2020-09-10] MEDS: cilostazol 50mg tablet PO SCH ×2 (08:50→21:46)
[2020-09-10] MEDS: clopidogrel 75mg tablet PO SCH (08:50)
[2020-09-10] MEDS: ciprofloxacin 250mg tablet PO SCH ×2 (08:51→21:46)
[2020-09-10] MEDS ORDERED: HYDROmorphone inj. 0.5 MG/0.5 ML DISP.SYRIN IV PRN (09:35)
[2020-09-10] MEDS: HYDROmorphone 1 mg/ml syringe IV PRN ×2 (10:37→21:48)
[2020-09-10 11:00] VITALS: BP 145/78
--- NOTE | 2020-09-10 12:18 | NUR ---
Reassessment: Pt continues with 75-100% PO intake. Pt receiving Vidal smoothie BIDBL 75-100% intake. Per MD progress note receiving treatment for postoperative wound infection at right proximal lower leg s/p vascular intervention, pseudomonas sepsis, and RLE ischemia. Rec: 1. continue heart healthy diet 2. Vidal smoothie BIDBL for wound healing needs; monitor need for additional protein 3. routine bowel care 4. weekly wts Addendum: 09/10/20 at [address] Amended: Links added.
[2020-09-10 15:00] VITALS: BP 100/75
[2020-09-10 18:00] VITALS: BP 115/75
--- NOTE | 2020-09-10 18:20 | NUR ---
Problems reprioritized. Patient report given, questions answered & plan of care reviewed with Alix CORREA.
[2020-09-10] MEDS: docusate sod 250mg capsule PO SCH (21:00)
[2020-09-10] MEDS: polyethylene glycol 3350 17gm powd pack PO SCH (21:00)
[2020-09-10 22:00] VITALS: BP 115/75
[2020-09-11] VITALS (7 sets, daily range): BP systolic 114–177; BP diastolic 65–83
[2020-09-11] MEDS: gabapentin 400mg capsule PO SCH ×3 (01:41→16:03)
[2020-09-11] MEDS: HYDROcodone/acetaminophen 10/325mg tab PO PRN ×5 (01:43→21:34)
[2020-09-11] MEDS: piperacillin/tazo 3.375gm/50ml 50 ML IV SCH ×3 (01:43→16:03)
[2020-09-11 06:15] LABS: BASOPHILS # (AUTO) 0.1 X10'3 (0-0.2); BASOPHILS % (AUTO) 1.2 % (0-1); EOSINOPHILS # (AUTO) 0.2 X10'3 (0-0.9); HEMATOCRIT 26.6 % (42.0-52.0); HEMOGLOBIN 8.8 g/dl (14.0-17.9); LYMPHOCYTES # (AUTO) 1.8 X10'3 (1.1-4.8); LYMPHOCYTES % (AUTO) 20.6 % (21-51); MEAN CORPUSCULAR HEMOGLOBIN 29.2 PG (27.0-31.0); MEAN CORPUSCULAR HGB CONC 33.3 g/dL (33.0-36.5); MEAN CORPUSCULAR VOLUME 87.7 FL (78-98); MEAN PLATELET VOLUME 6.8 FL (7.4-10.4); MONOCYTES # (AUTO) 0.7 X10'3 (0-0.9); MONOCYTES % (AUTO) 7.8 % (2-12); NEUTROPHILS # (AUTO) 5.8 X10'3 (1.8-7.7); NEUTROPHILS % (AUTO) 68.4 % (42-75); PLATELET COUNT 563 X10'3 (140-440); RED BLOOD COUNT 3.03 X10'6 (4.70-6.10); RED CELL DISTRIBUTION WIDTH 16.4 % (11.5-14.5); WHITE BLOOD COUNT 8.5 X10'3 (4.5-11.0)
[2020-09-11 06:27] LABS: PARTIAL THROMBOPLASTIN TIME 33 SECONDS (22-32)
[2020-09-11 06:36] LABS: ALANINE AMINOTRANSFERASE 43 U/L (12-78); ALBUMIN 2.1 G/DL (3.4-5.0); ALBUMIN/GLOBULIN RATIO 0.4 (1.1-1.5); ALKALINE PHOSPHATASE 69 IU/L (46-116); ANION GAP 9 (8-16); ASPARTATE AMINO TRANSFERASE 26 U/L (10-37); BILIRUBIN,TOTAL 0.3 MG/DL (0.1-1.0); BLOOD UREA NITROGEN 24 MG/DL (7-18); CALCIUM 8.3 MG/DL (8.5-10.1); CHLORIDE 103 MMOL/L (99-107); CREATININE 1.71 MG/DL (0.60-1.10); GLUCOSE 109 MG/DL (70-104); MAGNESIUM 1.9 MG/DL (1.5-2.4); PHOSPHORUS 5.1 MG/DL (2.3-4.5); POTASSIUM 3.7 MMOL/L (3.5-5.1); SODIUM 138 MMOL/L (135-145); TOTAL CARBON DIOXIDE 25.7 MMOL/L (24-32); eGFR 42 ML/MIN
[2020-09-11] MEDS: docusate sod 100mg capsule PO SCH ×2 (08:00→20:00)
[2020-09-11] MEDS: JUVEN Smoothie Arginine/Glut./Ca2+Bmb (Juven 19.3pkt) 240ml cup PO SCH ×2 (08:05→12:35)
[2020-09-11] MEDS: atorvastatin 20mg tablet PO SCH (08:05)
[2020-09-11] MEDS: lactobacillus rhamnosus 10,000 MMU CELLS/CAPSULE PO SCH ×2 (08:06→20:03)
[2020-09-11] MEDS: clopidogrel 75mg tablet PO SCH (08:06)
[2020-09-11] MEDS: ciprofloxacin 250mg tablet PO SCH ×2 (08:06→20:02)
[2020-09-11] MEDS: apixaban 5mg tablet PO SCH ×2 (08:06→20:03)
[2020-09-11] MEDS: cilostazol 50mg tablet PO SCH ×2 (08:06→20:04)
[2020-09-11] MEDS: diltiazem CD 180mg cap (once-daily) PO SCH (08:06)
[2020-09-11] MEDS: HYDROmorphone 1 mg/ml syringe IV PRN (13:42)
--- NOTE | 2020-09-11 18:27 | NUR ---
Problems reprioritized. Patient report given, questions answered & plan of care reviewed with MADELINE Palm.
--- NOTE | 2020-09-11 19:05 | NUR ---
I have received report from Geraldine CORREA and had the opportunity to ask questions and assume patient care.
[2020-09-11] MEDS: docusate sod 250mg capsule PO SCH (20:04)
[2020-09-11] MEDS: polyethylene glycol 3350 17gm powd pack PO SCH (20:04)
[2020-09-12] VITALS (7 sets, daily range): BP systolic 116–137; BP diastolic 65–84
[2020-09-12] MEDS: gabapentin 400mg capsule PO SCH ×3 (00:29→16:40)
[2020-09-12] MEDS: piperacillin/tazo 3.375gm/50ml 50 ML IV SCH ×3 (00:29→16:40)
[2020-09-12] MEDS: HYDROcodone/acetaminophen 10/325mg tab PO PRN ×3 (05:15→20:43)
--- NOTE | 2020-09-12 06:28 | NUR ---
Problems reprioritized. Patient report given, questions answered & plan of care reviewed with Selma CORREA.
--- NOTE | 2020-09-12 06:32 | NUR ---
Patient in room PCU 3024. I have received report from MADELINE Palm and had the opportunity to ask questions and assume patient care.
[2020-09-12] MEDS: docusate sod 100mg capsule PO SCH ×2 (08:00→20:00)
[2020-09-12] MEDS: JUVEN Smoothie Arginine/Glut./Ca2+Bmb (Juven 19.3pkt) 240ml cup PO SCH ×2 (08:27→13:04)
[2020-09-12] MEDS: cilostazol 50mg tablet PO SCH ×2 (08:29→20:42)
[2020-09-12] MEDS: clopidogrel 75mg tablet PO SCH (08:29)
[2020-09-12] MEDS: lactobacillus rhamnosus 10,000 MMU CELLS/CAPSULE PO SCH ×2 (08:29→20:42)
[2020-09-12] MEDS: apixaban 5mg tablet PO SCH ×2 (08:29→20:43)
[2020-09-12] MEDS: ciprofloxacin 250mg tablet PO SCH ×2 (08:29→20:41)
[2020-09-12] MEDS: diltiazem CD 180mg cap (once-daily) PO SCH (08:29)
[2020-09-12] MEDS: atorvastatin 20mg tablet PO SCH (08:30)
[2020-09-12] MEDS: HYDROmorphone 1 mg/ml syringe IV PRN (09:52)
--- NOTE | 2020-09-12 18:40 | NUR ---
Problems reprioritized. Patient report given, questions answered & plan of care reviewed with MADELINE Lopez.
--- NOTE | 2020-09-12 18:58 | NUR ---
Patient in room PCU 3024. I have received report from Selma CORREA and had the opportunity to ask questions and assume patient care.
[2020-09-12] MEDS: docusate sod 250mg capsule PO SCH (21:00)
[2020-09-12] MEDS: polyethylene glycol 3350 17gm powd pack PO SCH (21:00)
[2020-09-13] VITALS (16 sets, daily range): BP systolic 89–129; BP diastolic 61–86
[2020-09-13] MEDS: piperacillin/tazo 3.375gm/50ml 50 ML IV SCH ×4 (00:40→23:17)
[2020-09-13] MEDS: HYDROcodone/acetaminophen 10/325mg tab PO PRN ×3 (00:41→13:36)
[2020-09-13] MEDS: gabapentin 400mg capsule PO SCH ×4 (00:41→23:17)
[2020-09-13 06:15] LABS: BASOPHILS # (AUTO) 0.1 X10'3 (0-0.2); BASOPHILS % (AUTO) 0.9 % (0-1); EOSINOPHILS # (AUTO) 0.2 X10'3 (0-0.9); EOSINOPHILS % (AUTO) 2.4 % (0-6); HEMATOCRIT 27.7 % (42.0-52.0); HEMOGLOBIN 9.1 g/dl (14.0-17.9); LYMPHOCYTES # (AUTO) 2.1 X10'3 (1.1-4.8); LYMPHOCYTES % (AUTO) 27.7 % (21-51); MEAN CORPUSCULAR HEMOGLOBIN 28.9 PG (27.0-31.0); MEAN CORPUSCULAR VOLUME 87.8 FL (78-98); MEAN PLATELET VOLUME 6.6 FL (7.4-10.4); MONOCYTES # (AUTO) 0.5 X10'3 (0-0.9); MONOCYTES % (AUTO) 6.9 % (2-12); NEUTROPHILS # (AUTO) 4.8 X10'3 (1.8-7.7); NEUTROPHILS % (AUTO) 62.1 % (42-75); PLATELET COUNT 532 X10'3 (140-440); RED BLOOD COUNT 3.15 X10'6 (4.70-6.10); RED CELL DISTRIBUTION WIDTH 16.2 % (11.5-14.5); WHITE BLOOD COUNT 7.7 X10'3 (4.5-11.0)
--- NOTE | 2020-09-13 06:19 | NUR ---
Problems reprioritized. Patient report given, questions answered & plan of care reviewed with Elizabeth CORREA.
[2020-09-13 06:23] LABS: PARTIAL THROMBOPLASTIN TIME 31 SECONDS (22-32)
--- NOTE | 2020-09-13 06:30 | NUR ---
Patient in room PCU 3024. I have received report from MADELINE Bansal and had the opportunity to ask questions and assume patient care.
[2020-09-13 06:37] LABS: ALANINE AMINOTRANSFERASE 34 U/L (12-78); ALBUMIN 2.3 G/DL (3.4-5.0); ALBUMIN/GLOBULIN RATIO 0.5 (1.1-1.5); ALKALINE PHOSPHATASE 72 IU/L (46-116); ANION GAP 10 (8-16); ASPARTATE AMINO TRANSFERASE 29 U/L (10-37); BILIRUBIN,TOTAL 0.2 MG/DL (0.1-1.0); BLOOD UREA NITROGEN 23 MG/DL (7-18); BUN/CREATININE RATIO 15.1 (5.4-32.0); CALCIUM 8.7 MG/DL (8.5-10.1); CHLORIDE 103 MMOL/L (99-107); CREATININE 1.52 MG/DL (0.60-1.10); GLUCOSE 110 MG/DL (70-104); MAGNESIUM 1.8 MG/DL (1.5-2.4); POTASSIUM 3.6 MMOL/L (3.5-5.1); SODIUM 140 MMOL/L (135-145); TOTAL CARBON DIOXIDE 26.9 MMOL/L (24-32); TOTAL PROTEIN 7.3 G/DL (6.4-8.2); eGFR 48 ML/MIN
[2020-09-13] MEDS: JUVEN Smoothie Arginine/Glut./Ca2+Bmb (Juven 19.3pkt) 240ml cup PO SCH ×2 (07:30→12:30)
[2020-09-13] MEDS: atorvastatin 20mg tablet PO SCH (08:00)
[2020-09-13] MEDS: clopidogrel 75mg tablet PO SCH (08:00)
[2020-09-13] MEDS: lactobacillus rhamnosus 10,000 MMU CELLS/CAPSULE PO SCH ×2 (08:00→21:12)
[2020-09-13] MEDS: docusate sod 100mg capsule PO SCH ×2 (08:00→20:00)
[2020-09-13] MEDS: diltiazem CD 180mg cap (once-daily) PO SCH (08:40)
[2020-09-13] MEDS: cilostazol 50mg tablet PO SCH ×2 (08:40→21:12)
[2020-09-13] MEDS: ciprofloxacin 250mg tablet PO SCH ×2 (08:40→21:12)
[2020-09-13] MEDS ORDERED: sevoflurane 250ml liquid IH ONE (09:38)
[2020-09-13] MEDS: ringers solution, lacted 1,000 ML IV SCH ×2 (09:40→13:30)
[2020-09-13] MEDS ORDERED: morphine 2 MG/ML inj. syringe IV PRN (09:40)
[2020-09-13] MEDS ORDERED: proCHLORperazine 10 MG/2 ml inj IV PRN (09:40)
[2020-09-13] MEDS ORDERED: ondansetron/PF 4mg/2ml inj IV PRN (09:40)
[2020-09-13] MEDS ORDERED: morphine 4 MG/ML inj SYRINge IV PRN (09:40)
[2020-09-13] MEDS ORDERED: meperidine/PF 25mg/ml syringe IV PRN ×2 (09:40)
[2020-09-13] MEDS ORDERED: fentaNYL /PF 50mcg/ml 5ml ampule ONE (09:48)
[2020-09-13] MEDS ORDERED: midazolam 2 mg/2 ml injection ONE (09:48)
[2020-09-13] MEDS ORDERED: propofol inj 20 ML IV ONE (09:50)
[2020-09-13] MEDS ORDERED: LIDOcaine 2% (20mg/ml) 5ml vial ONE (09:50)
--- NOTE | 2020-09-13 10:03 | NUR ---
Report given to recovery room nurse MADELINE Olsen. All questions answered at this time. Awaiting patient's arrival back to PCU.
--- NOTE | 2020-09-13 10:05 | NUR ---
Reassessment: Pt continues with 75-100% PO intake. Pt receiving Vidal smoothie BIDBL 75-100% intake. Per MD progress note receiving treatment for postoperative wound infection at right proximal lower leg s/p vascular intervention, pseudomonas sepsis, and RLE ischemia. 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 Will continue to follow. Rec: 1. continue heart healthy diet 2. Vidal smoothie BIDBL for wound healing needs; monitor need for additional protein 3. routine bowel care 4. weekly wts Addendum: 09/13/20 at [address] Amended: Links added.
[2020-09-13] MEDS ORDERED: ePHEDrine 50MG/ML INJ. ONE (11:26)
[2020-09-13] MEDS ORDERED: fentaNYL/PF 50MCG/1 ML 2ML syringe ONE (11:30)
[2020-09-13] MEDS: meperidine/PF 25mg/ml syringe IV PRN ×2 (12:11→12:22)
--- NOTE | 2020-09-13 12:56 | NUR ---
Report called to receiving nurse. Transferred via BED Belongings . Special Issues communicated to receiving nurse. AWAKE AND ORIENTED. VITALS STABLE. AV INTACT AND AT 125 CONT. STATES PAIN IMPROVING. TO U RM 3021K AT THIS TIME.
--- NOTE | 2020-09-13 13:00 | NUR ---
PT BACK TO ROOM. WOUND VAC TO RIGHT BKA STUMP GOOD SEAL. V/S WNL. PT BACK TO SLEEP. CALL LIGHT IN HAND.
[2020-09-13] MEDS: HYDROmorphone 1 mg/ml syringe IV PRN (15:37)
[2020-09-13] MEDS ORDERED: naloxone 0.4 mg/ml inj IV PRN (16:05)
--- NOTE | 2020-09-13 16:15 | NUR ---
Pale conjunctiva and pale face noted upon patient. Dr. Rocha was called and an Hemogram was ordered. Will continue to monitor.
[2020-09-13] MEDS: HYDROmorphone/NS 1 mg/ml CADD 50 ML IV SCH ×4 (17:05→23:26)
[2020-09-13 17:37] LABS: MEAN CORPUSCULAR HEMOGLOBIN 29.1 PG (27.0-31.0); MEAN CORPUSCULAR VOLUME 88.3 FL (78-98); MEAN PLATELET VOLUME 6.6 FL (7.4-10.4); PLATELET COUNT 493 X10'3 (140-440); RED BLOOD COUNT 2.42 X10'6 (4.70-6.10); RED CELL DISTRIBUTION WIDTH 16.6 % (11.5-14.5); WHITE BLOOD COUNT 12.6 X10'3 (4.5-11.0)
[2020-09-13 17:42] LABS: HEMATOCRIT 21.4 % (42.0-52.0); HEMOGLOBIN 7.1 g/dl (14.0-17.9)
--- NOTE | 2020-09-13 18:35 | NUR ---
Problems reprioritized. Patient report given, questions answered & plan of care reviewed with MADELINE Fairchild. Assessed patient's right BKA, blood underneath dressing increased, outlined in sharpie. Fluctuance noted underneath dressing. Dr. Osuna to be notified.
--- NOTE | 2020-09-13 19:00 | NUR ---
Patient in room PCU 3024. I have received report from Elizabeth CORREA and had the opportunity to ask questions and assume patient care.
[2020-09-13 19:42] LABS: BASOPHILS # (AUTO) 0.1 X10'3 (0-0.2); BASOPHILS % (AUTO) 0.8 % (0-1); EOSINOPHILS % (AUTO) 0.4 % (0-6); LYMPHOCYTES # (AUTO) 1.2 X10'3 (1.1-4.8); LYMPHOCYTES % (AUTO) 10.1 % (21-51); MEAN CORPUSCULAR HEMOGLOBIN 28.4 PG (27.0-31.0); MEAN CORPUSCULAR HGB CONC 32.5 g/dL (33.0-36.5); MEAN CORPUSCULAR VOLUME 87.5 FL (78-98); MEAN PLATELET VOLUME 6.4 FL (7.4-10.4); MONOCYTES # (AUTO) 0.4 X10'3 (0-0.9); MONOCYTES % (AUTO) 3.8 % (2-12); NEUTROPHILS # (AUTO) 9.9 X10'3 (1.8-7.7); NEUTROPHILS % (AUTO) 84.9 % (42-75); PLATELET COUNT 512 X10'3 (140-440); RED CELL DISTRIBUTION WIDTH 15.8 % (11.5-14.5); WHITE BLOOD COUNT 11.6 X10'3 (4.5-11.0)
[2020-09-13 19:48] LABS: HEMOGLOBIN 6.8 g/dl (14.0-17.9)
--- NOTE | 2020-09-13 20:48 | NUR ---
Paged Dr Dumont approx 1900 regarding hematoma under wound vac dressing change on the right leg. Julia called back and ordered a repeat H&H. Critical values resulted at Hgb 6.8 and Hct 21[address] P[address] Dumont and awaiting call back. Will continue to monitor pt.
[2020-09-13] MEDS: docusate sod 250mg capsule PO SCH (21:00)
[2020-09-13] MEDS: polyethylene glycol 3350 17gm powd pack PO SCH (21:12)
[2020-09-14] VITALS (14 sets, daily range): BP systolic 113–168; BP diastolic 63–84
[2020-09-14] MEDS: HYDROmorphone/NS 1 mg/ml CADD 50 ML IV SCH ×12 (01:00→23:00)
[2020-09-14 01:05] LABS: BASOPHILS # (AUTO) 0.1 X10'3 (0-0.2); BASOPHILS % (AUTO) 0.9 % (0-1); EOSINOPHILS # (AUTO) 0.1 X10'3 (0-0.9); EOSINOPHILS % (AUTO) 1.2 % (0-6); LYMPHOCYTES # (AUTO) 1.6 X10'3 (1.1-4.8); LYMPHOCYTES % (AUTO) 14.9 % (21-51); MEAN CORPUSCULAR HEMOGLOBIN 29.2 PG (27.0-31.0); MEAN CORPUSCULAR HGB CONC 33.7 g/dL (33.0-36.5); MEAN CORPUSCULAR VOLUME 86.6 FL (78-98); MEAN PLATELET VOLUME 6.6 FL (7.4-10.4); MONOCYTES # (AUTO) 0.5 X10'3 (0-0.9); MONOCYTES % (AUTO) 5.1 % (2-12); NEUTROPHILS # (AUTO) 8.3 X10'3 (1.8-7.7); NEUTROPHILS % (AUTO) 77.9 % (42-75); PLATELET COUNT 488 X10'3 (140-440); RED BLOOD COUNT 2.23 X10'6 (4.70-6.10); RED CELL DISTRIBUTION WIDTH 16.1 % (11.5-14.5); WHITE BLOOD COUNT 10.7 X10'3 (4.5-11.0)
[2020-09-14 01:07] LABS: HEMATOCRIT 19.4 % (42.0-52.0); HEMOGLOBIN 6.5 g/dl (14.0-17.9)
[2020-09-14 01:20] LABS: ALANINE AMINOTRANSFERASE 28 U/L (12-78); ALBUMIN 2.3 G/DL (3.4-5.0); ALBUMIN/GLOBULIN RATIO 0.6 (1.1-1.5); ALKALINE PHOSPHATASE 63 IU/L (46-116); ANION GAP 10 (8-16); ASPARTATE AMINO TRANSFERASE 23 U/L (10-37); BILIRUBIN,TOTAL 0.2 MG/DL (0.1-1.0); BLOOD UREA NITROGEN 21 MG/DL (7-18); BUN/CREATININE RATIO 12.9 (5.4-32.0); CALCIUM 8.1 MG/DL (8.5-10.1); CHLORIDE 103 MMOL/L (99-107); CREATININE 1.63 MG/DL (0.60-1.10); GLUCOSE 131 MG/DL (70-104); MAGNESIUM 1.6 MG/DL (1.5-2.4); PHOSPHORUS 5.1 MG/DL (2.3-4.5); POTASSIUM 3.5 MMOL/L (3.5-5.1); SODIUM 138 MMOL/L (135-145); TOTAL CARBON DIOXIDE 24.9 MMOL/L (24-32); TOTAL PROTEIN 6.4 G/DL (6.4-8.2); eGFR 45 ML/MIN
--- NOTE | 2020-09-14 05:00 | NUR ---
repeat H&H was reordered. critical value resulted of 6.5. Dr. Dumont was in surgery so Rodney Murphy was called. I received an order to type and cross and transfuse 1 unit. Julia has been notifed. Pt received the one unit with no reactions, vitals all WNL. Pt still complaining of intense pain to right bka site with cadd pump being used continuously. Will continue to monitor.
--- NOTE | 2020-09-14 06:48 | NUR ---
Patient in room PCU 3024. I have received report from Elizabeth CORREA and had the opportunity to ask questions and assume patient care.
[2020-09-14] MEDS: JUVEN Smoothie Arginine/Glut./Ca2+Bmb (Juven 19.3pkt) 240ml cup PO SCH ×2 (07:30→12:30)
[2020-09-14 07:41] LABS: RED BLOOD COUNT 2.39 X10'6 (4.70-6.10); WHITE BLOOD COUNT 9.1 X10'3 (4.5-11.0)
[2020-09-14 07:44] LABS: MEAN CORPUSCULAR HEMOGLOBIN 29.1 PG (27.0-31.0); MEAN CORPUSCULAR HGB CONC 33.5 g/dL (33.0-36.5); MEAN CORPUSCULAR VOLUME 87.1 FL (78-98); MEAN PLATELET VOLUME 6.9 FL (7.4-10.4); PLATELET COUNT 428 X10'3 (140-440); RED CELL DISTRIBUTION WIDTH 15.6 % (11.5-14.5)
[2020-09-14 07:46] LABS: HEMATOCRIT 20.9 % (42.0-52.0); HEMOGLOBIN 6.9 g/dl (14.0-17.9)
[2020-09-14] MEDS: clopidogrel 75mg tablet PO SCH (08:00)
[2020-09-14] MEDS: docusate sod 100mg capsule PO SCH ×2 (08:00→20:00)
[2020-09-14] MEDS: gabapentin 400mg capsule PO SCH ×2 (08:40→15:11)
[2020-09-14] MEDS: ciprofloxacin 250mg tablet PO SCH ×2 (08:40→20:16)
[2020-09-14] MEDS: diltiazem CD 180mg cap (once-daily) PO SCH (08:40)
[2020-09-14] MEDS: cilostazol 50mg tablet PO SCH ×2 (08:40→20:16)
[2020-09-14] MEDS: atorvastatin 20mg tablet PO SCH (08:40)
[2020-09-14] MEDS: lactobacillus rhamnosus 10,000 MMU CELLS/CAPSULE PO SCH ×2 (08:40→20:16)
[2020-09-14] MEDS: piperacillin/tazo 3.375gm/50ml 50 ML IV SCH ×2 (08:41→15:15)
[2020-09-14 14:27] LABS: BASOPHILS # (AUTO) 0.1 X10'3 (0-0.2); BASOPHILS % (AUTO) 0.9 % (0-1); EOSINOPHILS # (AUTO) 0.1 X10'3 (0-0.9); EOSINOPHILS % (AUTO) 1.4 % (0-6); HEMATOCRIT 22.6 % (42.0-52.0); HEMOGLOBIN 7.6 g/dl (14.0-17.9); LYMPHOCYTES # (AUTO) 1.6 X10'3 (1.1-4.8); LYMPHOCYTES % (AUTO) 17.7 % (21-51); MEAN CORPUSCULAR HEMOGLOBIN 29.2 PG (27.0-31.0); MEAN CORPUSCULAR HGB CONC 33.9 g/dL (33.0-36.5); MEAN CORPUSCULAR VOLUME 86.2 FL (78-98); MEAN PLATELET VOLUME 6.5 FL (7.4-10.4); MONOCYTES # (AUTO) 0.6 X10'3 (0-0.9); MONOCYTES % (AUTO) 6.7 % (2-12); NEUTROPHILS # (AUTO) 6.6 X10'3 (1.8-7.7); NEUTROPHILS % (AUTO) 73.3 % (42-75); PLATELET COUNT 415 X10'3 (140-440); RED BLOOD COUNT 2.62 X10'6 (4.70-6.10); RED CELL DISTRIBUTION WIDTH 15.1 % (11.5-14.5)
--- NOTE | 2020-09-14 16:00 | NUR ---
Discussed with Dr. Rocha that patient's pain was not adequetly under control with the CADD pump. He said to titrate it. Patient's demand dose increased to .3mg per dose, with Sravanthi Angel RN as witness.
--- NOTE | 2020-09-14 18:14 | NUR ---
Problems reprioritized. Patient report given, questions answered & plan of care reviewed with MADELINE Fairchild.
--- NOTE | 2020-09-14 19:03 | NUR ---
Patient in room PCU 3024. I have received report from Elizabeth CORREA and had the opportunity to ask questions and assume patient care.
[2020-09-14] MEDS: docusate sod 250mg capsule PO SCH (21:00)
[2020-09-14] MEDS: polyethylene glycol 3350 17gm powd pack PO SCH (21:00)
[2020-09-15] VITALS (19 sets, daily range): BP systolic 119–163; BP diastolic 64–82
[2020-09-15] MEDS: gabapentin 400mg capsule PO SCH ×2 (00:16→07:08)
[2020-09-15] MEDS: piperacillin/tazo 3.375gm/50ml 50 ML IV SCH ×4 (00:16→23:09)
[2020-09-15] MEDS: HYDROmorphone/NS 1 mg/ml CADD 50 ML IV SCH ×12 (01:00→23:00)
--- NOTE | 2020-09-15 06:15 | NUR ---
Problems reprioritized. Patient report given, questions answered & plan of care reviewed with Elizabeth CORREA.
--- NOTE | 2020-09-15 06:20 | NUR ---
Patient in room PCU 3024. I have received report from MADELINE Fairchild and had the opportunity to ask questions and assume patient care.
[2020-09-15] MEDS: JUVEN Smoothie Arginine/Glut./Ca2+Bmb (Juven 19.3pkt) 240ml cup PO SCH ×2 (07:00→12:30)
[2020-09-15 07:04] LABS: BASOPHILS # (AUTO) 0.1 X10'3 (0-0.2); BASOPHILS % (AUTO) 0.7 % (0-1); EOSINOPHILS # (AUTO) 0.1 X10'3 (0-0.9); EOSINOPHILS % (AUTO) 1.7 % (0-6); HEMOGLOBIN 7.5 g/dl (14.0-17.9); LYMPHOCYTES # (AUTO) 1.7 X10'3 (1.1-4.8); LYMPHOCYTES % (AUTO) 20.8 % (21-51); MEAN CORPUSCULAR HEMOGLOBIN 29.9 PG (27.0-31.0); MEAN CORPUSCULAR HGB CONC 34.4 g/dL (33.0-36.5); MEAN CORPUSCULAR VOLUME 86.9 FL (78-98); MEAN PLATELET VOLUME 6.9 FL (7.4-10.4); MONOCYTES # (AUTO) 0.7 X10'3 (0-0.9); MONOCYTES % (AUTO) 8.2 % (2-12); NEUTROPHILS # (AUTO) 5.6 X10'3 (1.8-7.7); NEUTROPHILS % (AUTO) 68.6 % (42-75); PLATELET COUNT 370 X10'3 (140-440); RED CELL DISTRIBUTION WIDTH 15.4 % (11.5-14.5); WHITE BLOOD COUNT 8.1 X10'3 (4.5-11.0)
[2020-09-15] MEDS: cilostazol 50mg tablet PO SCH ×2 (07:08→20:58)
[2020-09-15] MEDS: diltiazem CD 180mg cap (once-daily) PO SCH (07:08)
[2020-09-15] MEDS: ciprofloxacin 250mg tablet PO SCH ×2 (07:08→20:58)
[2020-09-15 07:18] LABS: HEMATOCRIT 21.7 % (42.0-52.0)
[2020-09-15 07:39] LABS: ALANINE AMINOTRANSFERASE 32 U/L (12-78); ALBUMIN 2.2 G/DL (3.4-5.0); ALBUMIN/GLOBULIN RATIO 0.5 (1.1-1.5); ALKALINE PHOSPHATASE 63 IU/L (46-116); ANION GAP 10 (8-16); ASPARTATE AMINO TRANSFERASE 59 U/L (10-37); BILIRUBIN,TOTAL 0.4 MG/DL (0.1-1.0); BLOOD UREA NITROGEN 12 MG/DL (7-18); BUN/CREATININE RATIO 9.1 (5.4-32.0); CHLORIDE 104 MMOL/L (99-107); CREATININE 1.32 MG/DL (0.60-1.10); GLUCOSE 111 MG/DL (70-104); MAGNESIUM 1.5 MG/DL (1.5-2.4); PHOSPHORUS 3.6 MG/DL (2.3-4.5); POTASSIUM 3.4 MMOL/L (3.5-5.1); SODIUM 140 MMOL/L (135-145); TOTAL CARBON DIOXIDE 26.2 MMOL/L (24-32); TOTAL PROTEIN 6.4 G/DL (6.4-8.2); eGFR 57 ML/MIN
[2020-09-15] MEDS: lactobacillus rhamnosus 10,000 MMU CELLS/CAPSULE PO SCH ×2 (08:00→20:58)
[2020-09-15] MEDS: atorvastatin 20mg tablet PO SCH (08:00)
[2020-09-15] MEDS: docusate sod 100mg capsule PO SCH ×2 (08:00→20:00)
[2020-09-15] MEDS ORDERED: meperidine/PF 25mg/ml syringe IV PRN (10:05)
[2020-09-15] MEDS ORDERED: morphine 4 MG/ML inj SYRINge IV PRN (10:05)
[2020-09-15] MEDS ORDERED: HYDROmorphone/PF 0.2 MG/ML SYRINGE IV PRN ×2 (10:05)
[2020-09-15] MEDS ORDERED: labetalol 20mg/4ml (5mg/ml) syringe IV PRN (10:05)
[2020-09-15] MEDS ORDERED: ringers solution, lacted 1,000 ML IV SCH (10:05)
[2020-09-15] MEDS ORDERED: hydrALAZINE 20mg/ml inj. IV PRN (10:05)
[2020-09-15] MEDS ORDERED: morphine 2 MG/ML inj. syringe IV PRN (10:05)
[2020-09-15] MEDS ORDERED: rocuronium 10mg/ml inj IV ONE (10:05)
[2020-09-15] MEDS ORDERED: sevoflurane 250ml liquid IH ONE (10:05)
[2020-09-15] MEDS ORDERED: acetaminophen 1,000mg/100ml IV 100 ML IV PRN (10:05)
[2020-09-15] MEDS ORDERED: LIDOcaine 1%/PF 5ML 10 MG/ML VIAL ONE (10:05)
[2020-09-15] MEDS ORDERED: ondansetron/PF 4mg/2ml inj IV PRN (10:05)
[2020-09-15] MEDS ORDERED: ondansetron/PF 4mg/2ml inj ONE (10:05)
[2020-09-15] MEDS ORDERED: proCHLORperazine 10 MG/2 ml inj IV PRN (10:05)
[2020-09-15] MEDS ORDERED: midazolam 2 mg/2 ml injection ONE (10:15)
--- NOTE | 2020-09-15 10:19 | NUR ---
Report given to Recovery NurseAshley RN. All questions answered. Awaiting patient's arrival from recovery.
[2020-09-15] MEDS ORDERED: fentaNYL/PF 50MCG/1 ML 2ML syringe ONE (10:24)
[2020-09-15] MEDS ORDERED: dexamethasone sod phosphate 4mg/ml inj. ONE (10:27)
[2020-09-15] MEDS ORDERED: ePHEDrine 50MG/ML INJ. ONE (11:10)
[2020-09-15] MEDS ORDERED: albumin (Human) 5% 250ml 250 ML IV ONE ×2 (11:10)
[2020-09-15] MEDS ORDERED: 0.9 % SODIUM CHLORIDE 10 ML VIAL ONE (11:11)
[2020-09-15] MEDS ORDERED: HYDROmorphone 1 mg/ml syringe IV PRN (11:25)
[2020-09-15] MEDS ORDERED: morphine 10mg/ml inj. ONE (11:28)
[2020-09-15] MEDS ORDERED: glycopyrrolate 0.2mg/ml inj ONE (11:34)
[2020-09-15] MEDS ORDERED: neostigmine methylsulfate 1 MG/ML 10ml vial ONE (11:34)
--- NOTE | 2020-09-15 11:48 | NUR ---
Received from OR via BED, accompanied by Anesthesiologist DR HORTA and report given by Anesthesiologist. PT DROWSY, LEFT BKA W/WOUND VAC W/BLACK FOAM CDI, SMALL AMT OF S/S DRAINAGE IN WOUND VAC CANISTER, SETTINGS 125MMHG LCS. Addendum: 09/15/20 at 1216 by Ashley Malone RN Amended: Links added.
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
--- NOTE | 2020-09-15 12:34 | NUR ---
Problems reprioritized. Patient report given, questions answered & plan of care reviewed with Anny CORREA. Patient currently in Recovery, awaiting placement to Surgical unit.
--- NOTE | 2020-09-15 12:58 | NUR ---
Report called to receiving nurse. Transferred via BED, GLASSES AND CELL PHONE ONLY, OTHER PT Belongings ARE IN HIS ROOM. PT ORIENTED TO PLACE, TIME, AND CURRENT SITUATION. STATES IS COMFORTABLE, NURSES AIDE IN ROOM TO RECEIVE PT, BLL, CALL LIGHT GIVEN, SIDE RAILS UP. Special Issues communicated to receiving nurse. YES. Addendum: 09/15/20 at 1305 by Ashley Malone RN Amended: Links added.
--- NOTE | 2020-09-15 13:00 | NUR ---
Patient in room BRITNI 352. I have received report from Elizabeth CORREA and had the opportunity to ask questions . patient in recovery at this time transferred there from PCU.
--- NOTE | 2020-09-15 13:15 | NUR ---
Patient in room BRITNI 352. I have received report from Ashley CORREA and had the opportunity to ask questions and assume patient care.
[2020-09-15] MEDS: gabapentin 300mg capsule PO SCH ×2 (16:10→23:09)
[2020-09-15] MEDS: potassium Cl 20 mEq SR tablet PO PRN ×2 (17:12→23:09)
[2020-09-15 18:45] LABS: HEMATOCRIT 23.3 % (42.0-52.0); HEMOGLOBIN 7.9 g/dl (14.0-17.9); MEAN CORPUSCULAR HEMOGLOBIN 29.7 PG (27.0-31.0); MEAN CORPUSCULAR VOLUME 87.3 FL (78-98); MEAN PLATELET VOLUME 6.7 FL (7.4-10.4); PLATELET COUNT 384 X10'3 (140-440); RED BLOOD COUNT 2.67 X10'6 (4.70-6.10); RED CELL DISTRIBUTION WIDTH 15.6 % (11.5-14.5); WHITE BLOOD COUNT 10.4 X10'3 (4.5-11.0)
--- NOTE | 2020-09-15 18:52 | NUR ---
patient stated he is very satisfied with surgical procedure done today. wound vac in place sang drainage notied 25mls. Wound site CDI. Using dilaudid cadd with effect. Report given to Tonya CORREA
[2020-09-15] MEDS: polyethylene glycol 3350 17gm powd pack PO SCH (21:00)
[2020-09-15] MEDS: docusate sod 250mg capsule PO SCH (21:00)
[2020-09-16] VITALS: BP 133/74
[2020-09-16] MEDS: HYDROmorphone/NS 1 mg/ml CADD 50 ML IV SCH ×11 (01:00→23:00)
--- NOTE | 2020-09-16 06:42 | NUR ---
Patient in room BRITNI 352. I have received report from Tonya CORREA and had the opportunity to ask questions and assume patient care.
[2020-09-16 06:54] LABS: BASOPHILS # (AUTO) 0.1 X10'3 (0-0.2); BASOPHILS % (AUTO) 0.5 % (0-1); EOSINOPHILS % (AUTO) 0.1 % (0-6); HEMOGLOBIN 7.2 g/dl (14.0-17.9); LYMPHOCYTES # (AUTO) 1.6 X10'3 (1.1-4.8); MEAN CORPUSCULAR HEMOGLOBIN 28.8 PG (27.0-31.0); MEAN CORPUSCULAR HGB CONC 33.1 g/dL (33.0-36.5); MEAN CORPUSCULAR VOLUME 87.1 FL (78-98); MEAN PLATELET VOLUME 6.7 FL (7.4-10.4); MONOCYTES % (AUTO) 7.3 % (2-12); NEUTROPHILS # (AUTO) 10.8 X10'3 (1.8-7.7); NEUTROPHILS % (AUTO) 80.1 % (42-75); PLATELET COUNT 389 X10'3 (140-440); RED BLOOD COUNT 2.48 X10'6 (4.70-6.10); RED CELL DISTRIBUTION WIDTH 15.4 % (11.5-14.5); WHITE BLOOD COUNT 13.4 X10'3 (4.5-11.0)
[2020-09-16 07:00] LABS: HEMATOCRIT 21.6 % (42.0-52.0)
[2020-09-16 07:14] LABS: ALANINE AMINOTRANSFERASE 32 U/L (12-78); ALBUMIN 2.5 G/DL (3.4-5.0); ALBUMIN/GLOBULIN RATIO 0.6 (1.1-1.5); ALKALINE PHOSPHATASE 62 IU/L (46-116); ANION GAP 11 (8-16); ASPARTATE AMINO TRANSFERASE 41 U/L (10-37); BILIRUBIN,TOTAL 0.2 MG/DL (0.1-1.0); BLOOD UREA NITROGEN 16 MG/DL (7-18); BUN/CREATININE RATIO 13.4 (5.4-32.0); CALCIUM 8.1 MG/DL (8.5-10.1); CHLORIDE 104 MMOL/L (99-107); CREATININE 1.19 MG/DL (0.60-1.10); GLUCOSE 133 MG/DL (70-104); MAGNESIUM 1.7 MG/DL (1.5-2.4); PHOSPHORUS 3.3 MG/DL (2.3-4.5); POTASSIUM 3.8 MMOL/L (3.5-5.1); SODIUM 139 MMOL/L (135-145); TOTAL CARBON DIOXIDE 24.5 MMOL/L (24-32); TOTAL PROTEIN 6.8 G/DL (6.4-8.2); eGFR 64 ML/MIN
[2020-09-16] MEDS: JUVEN Smoothie Arginine/Glut./Ca2+Bmb (Juven 19.3pkt) 240ml cup PO SCH ×2 (07:30→12:30)
[2020-09-16 08:00] VITALS: BP 136/79
[2020-09-16] MEDS: cilostazol 50mg tablet PO SCH ×2 (08:47→19:40)
[2020-09-16] MEDS: ciprofloxacin 250mg tablet PO SCH ×2 (08:47→19:40)
[2020-09-16] MEDS: docusate sod 100mg capsule PO SCH ×2 (08:48→19:41)
[2020-09-16] MEDS: atorvastatin 20mg tablet PO SCH (08:48)
[2020-09-16] MEDS: diltiazem CD 180mg cap (once-daily) PO SCH (08:48)
[2020-09-16] MEDS: lactobacillus rhamnosus 10,000 MMU CELLS/CAPSULE PO SCH ×2 (08:48→19:40)
[2020-09-16] MEDS: gabapentin 300mg capsule PO SCH ×2 (08:49→16:30)
[2020-09-16] MEDS: piperacillin/tazo 3.375gm/50ml 50 ML IV SCH ×2 (10:05→15:51)
--- NOTE | 2020-09-16 11:00 | NUR ---
UNABLE TO CHECK F CADD ASSESSMENT FOR 1100 WAS ENTERED/SAVED: RESDUAL VOLUME: 8.4 ML, ATTEMPTS/GIVEN: 155/319, 40.20 MG RECEIVED. PT CONTINUES TO REPORT DAVIS 04/09 TO R BKA SURGICAL SITE, BUT RESTING IN BED WITHOUT S/SX OF DISTRESS, SMILING AND TALKATIVE. WILL CONTINUE TO MONITOR.
[2020-09-16 12:00] VITALS: BP 155/73
--- NOTE | 2020-09-16 12:41 | NUR ---
phone call from Lab, order to give PRBCs cancelled. Clarified with Sravanthi Dolan, she now does not want pt to received PRBCs at this time. Will continue to monitor.
[2020-09-16] MEDS: CADD PCA waste documentation MC PRN (16:53)
[2020-09-16 18:00] VITALS: BP 154/82
--- NOTE | 2020-09-16 18:32 | NUR ---
Received report from MADELINE Meng. Patient awake and alert on room air, in no apparent distress. Having meal. Call light and items of frequent use within reach. Will continue to monitor.
--- NOTE | 2020-09-16 18:32 | NUR ---
Problems reprioritized. Patient report given, questions answered & plan of care reviewed with Sameera CORREA.
[2020-09-16] MEDS: polyethylene glycol 3350 17gm powd pack PO SCH (19:41)
[2020-09-16] MEDS: docusate sod 250mg capsule PO SCH (19:41)
[2020-09-17] VITALS: BP 142/84
[2020-09-17] MEDS: gabapentin 300mg capsule PO SCH ×3 (00:33→16:56)
[2020-09-17] MEDS: piperacillin/tazo 3.375gm/50ml 50 ML IV SCH ×3 (00:34→16:56)
[2020-09-17] MEDS: HYDROmorphone/NS 1 mg/ml CADD 50 ML IV SCH ×7 (01:35→13:00)
--- NOTE | 2020-09-17 06:09 | NUR ---
Problems reprioritized. Patient report given, questions answered & plan of care reviewed with MADELINE Romero.
[2020-09-17 06:28] LABS: BASOPHILS # (AUTO) 0.1 X10'3 (0-0.2); BASOPHILS % (AUTO) 0.9 % (0-1); EOSINOPHILS # (AUTO) 0.4 X10'3 (0-0.9); EOSINOPHILS % (AUTO) 3.5 % (0-6); HEMATOCRIT 22.6 % (42.0-52.0); HEMOGLOBIN 7.6 g/dl (14.0-17.9); LYMPHOCYTES # (AUTO) 2.2 X10'3 (1.1-4.8); LYMPHOCYTES % (AUTO) 21.3 % (21-51); MEAN CORPUSCULAR HEMOGLOBIN 29.3 PG (27.0-31.0); MEAN CORPUSCULAR HGB CONC 33.5 g/dL (33.0-36.5); MEAN CORPUSCULAR VOLUME 87.3 FL (78-98); MEAN PLATELET VOLUME 6.7 FL (7.4-10.4); MONOCYTES # (AUTO) 0.8 X10'3 (0-0.9); MONOCYTES % (AUTO) 7.9 % (2-12); NEUTROPHILS % (AUTO) 66.4 % (42-75); PLATELET COUNT 388 X10'3 (140-440); RED BLOOD COUNT 2.59 X10'6 (4.70-6.10); RED CELL DISTRIBUTION WIDTH 15.8 % (11.5-14.5); WHITE BLOOD COUNT 10.5 X10'3 (4.5-11.0)
--- NOTE | 2020-09-17 06:43 | NUR ---
Patient in room BRITNI 352. I have received report from Sameera and had the opportunity to ask questions and assume patient care.
[2020-09-17 07:00] VITALS: BP 120/75
[2020-09-17 07:04] LABS: ALANINE AMINOTRANSFERASE 34 U/L (12-78); ALBUMIN 2.6 G/DL (3.4-5.0); ALBUMIN/GLOBULIN RATIO 0.6 (1.1-1.5); ALKALINE PHOSPHATASE 65 IU/L (46-116); ANION GAP 10 (8-16); ASPARTATE AMINO TRANSFERASE 34 U/L (10-37); BILIRUBIN,TOTAL 0.2 MG/DL (0.1-1.0); BLOOD UREA NITROGEN 21 MG/DL (7-18); BUN/CREATININE RATIO 14.1 (5.4-32.0); CALCIUM 8.6 MG/DL (8.5-10.1); CHLORIDE 103 MMOL/L (99-107); CREATININE 1.49 MG/DL (0.60-1.10); GLUCOSE 112 MG/DL (70-104); MAGNESIUM 1.6 MG/DL (1.5-2.4); PHOSPHORUS 4.1 MG/DL (2.3-4.5); POTASSIUM 3.6 MMOL/L (3.5-5.1); SODIUM 139 MMOL/L (135-145); TOTAL CARBON DIOXIDE 25.7 MMOL/L (24-32); TOTAL PROTEIN 7.1 G/DL (6.4-8.2); eGFR 50 ML/MIN
[2020-09-17] MEDS: JUVEN Smoothie Arginine/Glut./Ca2+Bmb (Juven 19.3pkt) 240ml cup PO SCH ×2 (07:30→13:06)
[2020-09-17] MEDS: docusate sod 100mg capsule PO SCH ×2 (08:00→20:00)
[2020-09-17] MEDS: lactobacillus rhamnosus 10,000 MMU CELLS/CAPSULE PO SCH ×2 (08:42→20:07)
[2020-09-17] MEDS: atorvastatin 20mg tablet PO SCH (08:43)
[2020-09-17] MEDS: ciprofloxacin 250mg tablet PO SCH ×2 (08:43→20:07)
[2020-09-17] MEDS: cilostazol 50mg tablet PO SCH ×2 (08:43→20:07)
[2020-09-17] MEDS: diltiazem CD 180mg cap (once-daily) PO SCH (08:46)
[2020-09-17 12:30] LABS: CREATINE KINASE 479 U/L (39-308)
[2020-09-17] MEDS: CADD PCA waste documentation MC PRN (15:16)
[2020-09-17] MEDS: HYDROmorphone 1 mg/ml syringe IV PRN ×2 (16:57→21:47)
--- NOTE | 2020-09-17 18:25 | NUR ---
Patient in room BRITNI 352A. I have received report from MADELINE Romero and had the opportunity to ask questions and assume patient care.
[2020-09-17 20:00] VITALS: BP 155/84
[2020-09-17] MEDS: polyethylene glycol 3350 17gm powd pack PO SCH (20:08)
[2020-09-17] MEDS: docusate sod 250mg capsule PO SCH (20:08)
[2020-09-17] MEDS: HYDROcodone/acetaminophen 10/325mg tab PO PRN (23:49)
[2020-09-18] VITALS: BP 167/87
[2020-09-18] MEDS: HYDROcodone/acetaminophen 10/325mg tab PO PRN ×3 (05:49→15:45)
--- NOTE | 2020-09-18 06:13 | NUR ---
Problems reprioritized. Patient report given, questions answered & plan of care reviewed with MADELINE Menendez.
[2020-09-18 06:40] LABS: BASOPHILS # (AUTO) 0.1 X10'3 (0-0.2); BASOPHILS % (AUTO) 0.7 % (0-1); EOSINOPHILS # (AUTO) 0.3 X10'3 (0-0.9); EOSINOPHILS % (AUTO) 2.8 % (0-6); HEMATOCRIT 24.1 % (42.0-52.0); HEMOGLOBIN 8.2 g/dl (14.0-17.9); LYMPHOCYTES # (AUTO) 1.7 X10'3 (1.1-4.8); LYMPHOCYTES % (AUTO) 15.6 % (21-51); MEAN CORPUSCULAR HEMOGLOBIN 29.8 PG (27.0-31.0); MEAN CORPUSCULAR HGB CONC 34.2 g/dL (33.0-36.5); MEAN CORPUSCULAR VOLUME 87.2 FL (78-98); MEAN PLATELET VOLUME 6.7 FL (7.4-10.4); MONOCYTES # (AUTO) 0.9 X10'3 (0-0.9); MONOCYTES % (AUTO) 8.2 % (2-12); NEUTROPHILS # (AUTO) 7.9 X10'3 (1.8-7.7); NEUTROPHILS % (AUTO) 72.7 % (42-75); PLATELET COUNT 398 X10'3 (140-440); RED BLOOD COUNT 2.76 X10'6 (4.70-6.10); RED CELL DISTRIBUTION WIDTH 15.9 % (11.5-14.5); WHITE BLOOD COUNT 10.9 X10'3 (4.5-11.0)
[2020-09-18 07:00] VITALS: BP 157/87
[2020-09-18 07:07] LABS: ALANINE AMINOTRANSFERASE 31 U/L (12-78); ALBUMIN 2.7 G/DL (3.4-5.0); ALBUMIN/GLOBULIN RATIO 0.6 (1.1-1.5); ALKALINE PHOSPHATASE 67 IU/L (46-116); ANION GAP 10 (8-16); ASPARTATE AMINO TRANSFERASE 27 U/L (10-37); BILIRUBIN,TOTAL 0.4 MG/DL (0.1-1.0); BLOOD UREA NITROGEN 18 MG/DL (7-18); BUN/CREATININE RATIO 12.6 (5.4-32.0); CALCIUM 8.8 MG/DL (8.5-10.1); CHLORIDE 102 MMOL/L (99-107); CREATININE 1.43 MG/DL (0.60-1.10); GLUCOSE 116 MG/DL (70-104); MAGNESIUM 1.7 MG/DL (1.5-2.4); POTASSIUM 3.2 MMOL/L (3.5-5.1); SODIUM 139 MMOL/L (135-145); TOTAL CARBON DIOXIDE 27.3 MMOL/L (24-32); TOTAL PROTEIN 7.4 G/DL (6.4-8.2); eGFR 52 ML/MIN
--- NOTE | 2020-09-18 07:09 | NUR ---
Patient in room BRITNI 352. I have received report from crissy sawyer and had the opportunity to ask questions and assume patient care.
[2020-09-18] MEDS: docusate sod 100mg capsule PO SCH (08:00)
[2020-09-18] MEDS: lactobacillus rhamnosus 10,000 MMU CELLS/CAPSULE PO SCH (08:13)
[2020-09-18] MEDS: atorvastatin 20mg tablet PO SCH (08:13)
[2020-09-18] MEDS: cilostazol 50mg tablet PO SCH (08:13)
[2020-09-18] MEDS: gabapentin 300mg capsule PO SCH ×3 (08:13→15:45)
[2020-09-18] MEDS: ciprofloxacin 250mg tablet PO SCH (08:13)
[2020-09-18] MEDS: piperacillin/tazo 3.375gm/50ml 50 ML IV SCH ×3 (08:13→15:46)
[2020-09-18] MEDS: diltiazem CD 180mg cap (once-daily) PO SCH (08:13)
[2020-09-18] MEDS: JUVEN Smoothie Arginine/Glut./Ca2+Bmb (Juven 19.3pkt) 240ml cup PO SCH ×2 (08:16→12:30)
[2020-09-18] MEDS: potassium Cl 20 mEq SR tablet PO PRN ×2 (08:28→17:41)
--- NOTE | 2020-09-18 11:10 | NUR ---
Reassessment: Pt s/p right BKA 09/13 and removal of non viable muscle tissue and partial wound closure 09/15. Pt continues on a heart healthy diet and receiving Vidal smoothie BIDBL meeting nutrient needs with adequate protein to promote wound healing. LBM 09/17. Will continue to follow and monitor need for further nutrition intervention. Rec: 1. continue heart healthy diet 2. Vidal smoothie BIDBL for wound healing needs; monitor need for additional protein 3. routine bowel care 4. weekly wts Addendum: 09/18/20 at [address] Amended: Links added.
[2020-09-18 11:49] VITALS: BP 120/76
--- NOTE | 2020-09-18 18:27 | NUR ---
PT DISCHARGED TO [facility]. ALL BELONGINGS SENT WITH PT. REPORT WAS CALLED TO SANTIAGO CORREA. PT TRANSFERRED WITH [address] AND A WOUND VAC TO [facility]. PT HAS PERSONAL WOUND VAC FOR TRANSFER.
== END 2020-09-18 18:29 | DRG 710 ==
LOC: WOUND CARE 15:57 → ICU 2S 20:00 → PCU 3S 09-04 23:05 → PACU 09-15 10:42 → SUR 3N 09-15 13:00
PROVIDERS: ADMIT Surgery; ATTEND Surgery
PROC: 04CP3ZZ Extirpation of Matter from Right Anterior Tibial Artery, Percutaneous Approach (ICD-10-PCS; 2020-08-30)
PROC: 30233N1 Transfusion of Nonautologous Red Blood Cells into Peripheral Vein, Percutaneous Approach (ICD-10-PCS; 2020-08-30)
PROC: 0Y6H0Z1 Detachment at Right Lower Leg, High, Open Approach (ICD-10-PCS; principal; 2020-09-13 09:38)
DX: A41.52 Sepsis due to Pseudomonas (principal); E11.22 Type 2 diabetes mellitus with diabetic chronic kidney disease; E11.51 Type 2 diabetes mellitus with diabetic peripheral angiopathy without gangrene; E78.5 Hyperlipidemia, unspecified; I12.9 Hypertensive chronic kidney disease with stage 1 through stage 4 chronic kidney disease, or unspecified chronic kidney disease; I99.8 Other disorder of circulatory system; N18.30 Chronic kidney disease, stage 3 unspecified; T81.41XA Infection following a procedure, superficial incisional surgical site, initial encounter; Y83.2 Surgical operation with anastomosis, bypass or graft as the cause of abnormal reaction of the patient, or of later complication, without mention of misadventure at the time of the procedure; Y82.8 Other medical devices associated with adverse incidents; Y92.238 Other place in hospital as the place of occurrence of the external cause; Z20.822 Contact with and (suspected) exposure to COVID-19; D64.9 Anemia, unspecified; Z87.891 Personal history of nicotine dependence; Z79.899 Other long term (current) drug therapy; Z89.421 Acquired absence of other right toe(s)
CPT/HCPCS: 36245; 36415; 36430; 36600; 37211; 37214; 71045; 73560; 73700; 75710; 76000; 76937; 80047; 80053; 82550; 82803; 82948; 83605; 83735; 84100; 84132; 84484; 85007; 85018; 85025; 85027; 85384; 85610; 85651; 85730; 86140; 86885; 86900; 86901; 86920; 87040; 87070; 87075; 87077; 87081; 87186; 87635; 93005; 93922; 93926; 97110; 97116; 97161; 97164; 97530; 99152; 99153; A4215; A4618; A6223; A6253; A6258; A6446; A6449; A6454; A6550; A7000; C1757; C1768; C1769; C1887; C1894; C9113; G0378; J0131; J1100; J1170; J1644; J2001; J2175; J2250; J2270; J2370; J2405; J2543; J2704; J2710; J2997; J3010; J3370; J3480; J3490; J7030; J7040; J7050; J7120; P9016; P9045; Q9967

== ENCOUNTER 2020-09-25 09:12 | Inpatient (IN) | payer MEDICAID ==
[~2020-09-25] VITALS: Ht 180.3 cm; Wt 79.5 kg
[~2020-09-25 09:12] MED LIST changes: -AMOX-580 PO; -APIX5TAB3 PO; -METO25TA6 PO
[2020-09-25 09:48] LABS: BASOPHILS # (AUTO) 0.1 X10'3 (0-0.2); BASOPHILS % (AUTO) 0.7 % (0-1); EOSINOPHILS # (AUTO) 0.3 X10'3 (0-0.9); EOSINOPHILS % (AUTO) 2.7 % (0-6); HEMATOCRIT 27.8 % (42.0-52.0); HEMOGLOBIN 9.2 g/dl (14.0-17.9); LYMPHOCYTES # (AUTO) 1.8 X10'3 (1.1-4.8); LYMPHOCYTES % (AUTO) 14.6 % (21-51); MEAN CORPUSCULAR HEMOGLOBIN 28.1 PG (27.0-31.0); MEAN CORPUSCULAR HGB CONC 33.2 g/dL (33.0-36.5); MEAN CORPUSCULAR VOLUME 84.7 FL (78-98); MEAN PLATELET VOLUME 6.7 FL (7.4-10.4); MONOCYTES # (AUTO) 0.9 X10'3 (0-0.9); MONOCYTES % (AUTO) 7.1 % (2-12); NEUTROPHILS # (AUTO) 9.1 X10'3 (1.8-7.7); NEUTROPHILS % (AUTO) 74.9 % (42-75); PLATELET COUNT 483 X10'3 (140-440); RED BLOOD COUNT 3.28 X10'6 (4.70-6.10); RED CELL DISTRIBUTION WIDTH 17.1 % (11.5-14.5); WHITE BLOOD COUNT 12.2 X10'3 (4.5-11.0)
[2020-09-25 10:22] LABS: ALANINE AMINOTRANSFERASE 19 U/L (12-78); ALBUMIN 2.2 G/DL (3.4-5.0); ALBUMIN/GLOBULIN RATIO 0.4 (1.1-1.5); ALKALINE PHOSPHATASE 70 IU/L (46-116); ANION GAP 11 (8-16); ASPARTATE AMINO TRANSFERASE 20 U/L (10-37); BILIRUBIN,TOTAL 0.3 MG/DL (0.1-1.0); BLOOD UREA NITROGEN 22 MG/DL (7-18); BUN/CREATININE RATIO 15.8 (5.4-32.0); CHLORIDE 104 MMOL/L (99-107); CREATININE 1.39 MG/DL (0.60-1.10); GLUCOSE 114 MG/DL (70-104); POTASSIUM 3.9 MMOL/L (3.5-5.1); SODIUM 141 MMOL/L (135-145); TOTAL CARBON DIOXIDE 25.6 MMOL/L (24-32); TOTAL PROTEIN 7.5 G/DL (6.4-8.2); eGFR 54 ML/MIN
--- NOTE | 2020-09-25 11:46 | NUR ---
pt assisted to bedside commode by jez vergara and machine plaster mixer.
[2020-09-25] MEDS ORDERED: ASPI-611 PO (12:22)
[2020-09-25] MEDS ORDERED: CIPR-259 PO (12:24)
[2020-09-25] MEDS ORDERED: GABA600T13 PO (12:25)
--- NOTE | 2020-09-25 12:25 | NUR ---
SPOKE TO MELODY HERNANDEZ REGARDING PT RGT BKA PAIN AND PT HAS REMOVED HIS DRESSING,HR 125 ,TAKES [id number] MG PO,PT ALSO C/O PAIN TO HIS SURGICAL SITE, PER PA LAURA WITH KIMBERLY REGARDING CARDIAZEM PO MED AND VERBAL ORDER FOR MORPHINE 4 MG IV ONCE.
[2020-09-25] MEDS ORDERED: OMEP20CA15 PO (12:26)
[2020-09-25] MEDS ORDERED: IRON-32 PO (12:26)
[2020-09-25] MEDS ORDERED: LACT1CAP65 PO (12:27)
[2020-09-25] MEDS ORDERED: morphine 4 MG/ML inj SYRINge IV ONE (12:35)
[2020-09-25] MEDS ORDERED: HYDROcodone/acetaminophen 5mg/325mg tablet PO PRN (13:05)
[2020-09-25] MEDS ORDERED: acetaminophen 650mg rectal suppository RC PRN (13:05)
[2020-09-25] MEDS ORDERED: morphine 2 MG/ML inj. syringe IV PRN (13:05)
[2020-09-25] MEDS ORDERED: diphenhydrAMINE 25mg capsule PO PRN (13:05)
[2020-09-25] MEDS ORDERED: potassium Cl 40MEQ/1/2NS 520ml 520 ML IV PRN ×2 (13:05)
[2020-09-25] MEDS ORDERED: magnesium 2GM in 50ml NS 50 ML IV PRN (13:05)
[2020-09-25] MEDS ORDERED: potassium Cl 20 mEq SR tablet PO PRN ×2 (13:05)
[2020-09-25] MEDS ORDERED: magnesium hydroxide 30ml (MOM) UD suspension PO PRN (13:05)
[2020-09-25] MEDS ORDERED: acetaminophen 325mg tablet PO PRN ×2 (13:05)
[2020-09-25] MEDS ORDERED: bisacodyl 10mg suppository rectal RC PRN (13:05)
[2020-09-25] MEDS ORDERED: ondansetron/PF 4mg/2ml inj IV PRN (13:05)
[2020-09-25] MEDS ORDERED: mag hydrox/Alum hydrox/simeth 30ml oral suspension PO PRN (13:05)
[2020-09-25] MEDS ORDERED: magnesium Cl slow-release 64mg tablet PO PRN (13:05)
[2020-09-25] MEDS ORDERED: magnesium 4gm in 100ml NS 100 ML IV PRN (13:05)
[2020-09-25 13:46] LABS: HEMOGLOBIN A1C 5.7 % (4.5-6.2)
[2020-09-25] MEDS: normal saline 1000ml 1,000 ML IV SCH (14:13)
[2020-09-25] MEDS: morphine 2 MG/ML inj. syringe IV PRN (14:39)
[2020-09-25] MEDS: piperacillin/tazo 3.375gm/50ml 50 ML IV SCH (17:22)
[2020-09-25] MEDS: gabapentin 300mg capsule PO SCH (17:22)
[2020-09-25 17:39] LABS: CLARITY,URINE CLEAR (Clear); COLOR,URINE STRAW (Yellow); GLUCOSE, URINE NEGATIVE (Neg); KETONES,URINE NEGATIVE (Neg); LEUKOCYTE ESTERASE ,URINE NEGATIVE (Neg); NITRITES, URINE NEGATIVE (Neg); OCCULT BLOOD,URINE NEGATIVE (Neg); PROTEIN,URINE NEGATIVE (Neg); UROBILINOGEN,URINE 0.2 E.U/dL (0.2-1.0)
[2020-09-25 17:53] LABS: UA COLLECTION TYPE URINAL
[2020-09-25] MEDS: HYDROcodone/acetaminophen 10/325mg tab PO PRN (18:17)
--- NOTE | 2020-09-25 18:20 | NUR ---
Patient in room BRITNI 350. I have received report from Garth CORREA and had the opportunity to ask questions and assume patient care.
[2020-09-25] MEDS ORDERED: famotidine/PF 10 mg/ml inj IV PRN (18:50)
[2020-09-25 19:00] VITALS: BP 142/72
[2020-09-25] MEDS: K and/or MAG REPLACEMENT MC SCH (19:57)
[2020-09-25] MEDS: ciprofloxacin 250mg tablet PO SCH (20:08)
[2020-09-25] MEDS: lactobacillus rhamnosus 10,000 MMU CELLS/CAPSULE PO SCH (20:09)
[2020-09-25] MEDS: cilostazol 50mg tablet PO SCH (20:10)
[2020-09-25] MEDS: heparin, porcine 5000 units/ml vial SQ SCH (20:10)
[2020-09-25] MEDS: atorvastatin 20mg tablet PO SCH (20:11)
--- NOTE | 2020-09-25 23:18 | NUR ---
Guaze to right leg fell off, replaced with new guaze.
[2020-09-26] VITALS (18 sets, daily range): BP systolic 121–193; BP diastolic 63–88
[2020-09-26] MEDS: HYDROcodone/acetaminophen 10/325mg tab PO PRN ×5 (00:01→23:57)
[2020-09-26] MEDS: gabapentin 300mg capsule PO SCH ×4 (00:01→23:56)
[2020-09-26] MEDS: piperacillin/tazo 3.375gm/50ml 50 ML IV SCH ×4 (00:13→23:57)
[2020-09-26] MEDS: morphine 2 MG/ML inj. syringe IV PRN ×4 (03:36→21:30)
[2020-09-26] MEDS: heparin, porcine 5000 units/ml vial SQ SCH ×2 (05:43→20:08)
--- NOTE | 2020-09-26 06:28 | NUR ---
Problems reprioritized. Patient report given, questions answered & plan of care reviewed with Donovan CORREA.
--- NOTE | 2020-09-26 06:29 | NUR ---
Patient in room BRITNI 350. I have received report from MADELINE Palm and had the opportunity to ask questions and assume patient care.
[2020-09-26 06:44] LABS: BASOPHILS % (AUTO) 0.4 % (0-1); EOSINOPHILS # (AUTO) 0.3 X10'3 (0-0.9); EOSINOPHILS % (AUTO) 2.6 % (0-6); HEMATOCRIT 24.7 % (42.0-52.0); HEMOGLOBIN 8.2 g/dl (14.0-17.9); LYMPHOCYTES # (AUTO) 1.7 X10'3 (1.1-4.8); LYMPHOCYTES % (AUTO) 15.1 % (21-51); MEAN CORPUSCULAR HEMOGLOBIN 27.9 PG (27.0-31.0); MEAN CORPUSCULAR VOLUME 84.7 FL (78-98); MEAN PLATELET VOLUME 6.9 FL (7.4-10.4); MONOCYTES # (AUTO) 0.7 X10'3 (0-0.9); MONOCYTES % (AUTO) 6.5 % (2-12); NEUTROPHILS # (AUTO) 8.4 X10'3 (1.8-7.7); NEUTROPHILS % (AUTO) 75.4 % (42-75); PLATELET COUNT 467 X10'3 (140-440); RED BLOOD COUNT 2.92 X10'6 (4.70-6.10); WHITE BLOOD COUNT 11.2 X10'3 (4.5-11.0)
[2020-09-26 06:52] LABS: PARTIAL THROMBOPLASTIN TIME 29 SECONDS (22-32)
[2020-09-26 06:59] LABS: ALANINE AMINOTRANSFERASE 15 U/L (12-78); ALBUMIN 2.2 G/DL (3.4-5.0); ALBUMIN/GLOBULIN RATIO 0.5 (1.1-1.5); ALKALINE PHOSPHATASE 65 IU/L (46-116); ANION GAP 11 (8-16); ASPARTATE AMINO TRANSFERASE 16 U/L (10-37); BILIRUBIN,TOTAL 0.2 MG/DL (0.1-1.0); BLOOD UREA NITROGEN 15 MG/DL (7-18); BUN/CREATININE RATIO 12.9 (5.4-32.0); CALCIUM 8.4 MG/DL (8.5-10.1); CHLORIDE 105 MMOL/L (99-107); CHOL/HDL RATIO 2.8 (0.00-4.99); CHOLESTEROL 74 MG/DL (0-200); CREATININE 1.16 MG/DL (0.60-1.10); GLUCOSE 114 MG/DL (70-104); HDL CHOLESTEROL 26 MG/DL (35-60); LDL CHOLESTEROL 42 MG/DL (50-100); MAGNESIUM 1.9 MG/DL (1.5-2.4); PHOSPHORUS 4.4 MG/DL (2.3-4.5); POTASSIUM 3.7 MMOL/L (3.5-5.1); SODIUM 141 MMOL/L (135-145); TOTAL CARBON DIOXIDE 24.8 MMOL/L (24-32); TRIGLYCERIDES 72 MG/DL (20-135); eGFR 66 ML/MIN
[2020-09-26] MEDS: ciprofloxacin 250mg tablet PO SCH ×2 (07:31→20:07)
[2020-09-26] MEDS: diltiazem CD 180mg cap (once-daily) PO SCH (07:31)
[2020-09-26] MEDS ORDERED: [UNRECOGNIZED DRUG - OTHER] PO SCH (08:00)
[2020-09-26] MEDS: K and/or MAG REPLACEMENT MC SCH ×2 (08:00→20:00)
[2020-09-26] MEDS: cilostazol 50mg tablet PO SCH ×2 (08:00→20:07)
[2020-09-26] MEDS: aspirin 81mg tablet.DR PO SCH (08:00)
[2020-09-26] MEDS: lactobacillus rhamnosus 10,000 MMU CELLS/CAPSULE PO SCH ×2 (08:00→20:07)
[2020-09-26] MEDS: pantoprazole 40mg Tablet.DR PO SCH (08:00)
[2020-09-26] MEDS: normal saline 1000ml 1,000 ML IV SCH ×4 (09:05→22:52)
--- NOTE | 2020-09-26 16:53 | NUR ---
Report called to statuary painter
--- NOTE | 2020-09-26 17:02 | NUR ---
Patient down to OR via bed accompanied by x2 staff.
[2020-09-26] MEDS ORDERED: morphine 4 MG/ML inj SYRINge IV PRN (17:35)
[2020-09-26] MEDS ORDERED: ringers solution, lacted 1,000 ML IV SCH (17:35)
[2020-09-26] MEDS ORDERED: ondansetron/PF 4mg/2ml inj IV PRN (17:35)
[2020-09-26] MEDS ORDERED: proCHLORperazine 10 MG/2 ml inj IV PRN (17:35)
[2020-09-26] MEDS ORDERED: morphine 2 MG/ML inj. syringe IV PRN (17:35)
[2020-09-26] MEDS ORDERED: meperidine/PF 25mg/ml syringe IV PRN ×3 (17:35)
[2020-09-26] MEDS ORDERED: midazolam 2 mg/2 ml injection ONE (17:41)
[2020-09-26] MEDS ORDERED: fentaNYL /PF 50mcg/ml 5ml ampule ONE (17:42)
[2020-09-26] MEDS ORDERED: labetalol 20mg/4ml (5mg/ml) syringe IV ONE (17:45)
[2020-09-26] MEDS ORDERED: sevoflurane 250ml liquid IH ONE (17:45)
[2020-09-26] MEDS ORDERED: morphine 4 MG/ML inj SYRINge ONE (18:13)
--- NOTE | 2020-09-26 18:23 | NUR ---
Problems reprioritized. Patient report given, questions answered & plan of care reviewed with MADELINE Merrill.
--- NOTE | 2020-09-26 18:27 | NUR ---
Received from OR via SURGICAL BED , accompanied by Anesthesiologist JALEN and report given by Anesthesiolgist. PATIENT WITH 20G PIV IN LEFT UE RUNNING LR AT 100. PATIENT WITH RIGHT LE WITH MARITZA BANDAGE PRESENT THAT IS CDI. Addendum: 09/26/20 at 1852 by Raúl Hassan RN, RN Amended: Links added.
[2020-09-26] MEDS ORDERED: LIDOcaine 2% (20mg/ml) 5ml vial ONE (18:31)
[2020-09-26] MEDS ORDERED: propofol inj 20 ML IV ONE (18:31)
[2020-09-26] MEDS ORDERED: ondansetron/PF 4mg/2ml inj ONE (18:31)
--- NOTE | 2020-09-26 19:17 | NUR ---
ALL CRITERIA FOR TRANSFER TO THE FLOOR HAS BEEN ACHIEVED. REPORT GIVEN AND ALL QUESTIONS ANSWERED, VSS. BED LOW 2 RAILS UP, CALL LIGHT PRESENT AND PATIENT HOOKED UP TO ALL LINES AND VSS. PATIENTS RN PRESENT TO ACCEPT CARE. MADELINE SHERMAN PRESENT TO ACCEPT PATIENT AND HOOK TO ALL MONITORS. ALL BELONGINGS PRESENT IN HIS ROOM PRIOR TO LEAVING FOR SURGERY. VSS. DENIES PAIN. RIGHT LE DRESSINGI STILL CDI. Addendum: 09/26/20 at 1926 by Raúl Reed - MADELINE CORREA Amended: Links added.
[2020-09-26] MEDS: atorvastatin 20mg tablet PO SCH (20:07)
--- NOTE | 2020-09-26 22:33 | NUR ---
Page sent to MD Rangel regarding patient c/o increase in pain after administration of IV morphine. New order received 1 Mg IV Dilaudid once now.
[2020-09-26] MEDS ORDERED: HYDROmorphone 1 mg/ml syringe IV ONE (22:35)
[2020-09-27] VITALS (20 sets, daily range): BP systolic 119–188; BP diastolic 66–91
[2020-09-27] MEDS: morphine 2 MG/ML inj. syringe IV PRN ×4 (01:41→21:53)
[2020-09-27] MEDS: HYDROcodone/acetaminophen 10/325mg tab PO PRN ×4 (04:10→23:48)
[2020-09-27 06:19] LABS: BASOPHILS % (AUTO) 0.4 % (0-1); EOSINOPHILS # (AUTO) 0.2 X10'3 (0-0.9); EOSINOPHILS % (AUTO) 2.2 % (0-6); HEMATOCRIT 24.6 % (42.0-52.0); HEMOGLOBIN 8.2 g/dl (14.0-17.9); LYMPHOCYTES # (AUTO) 1.7 X10'3 (1.1-4.8); LYMPHOCYTES % (AUTO) 14.9 % (21-51); MEAN CORPUSCULAR HGB CONC 33.3 g/dL (33.0-36.5); MEAN PLATELET VOLUME 6.8 FL (7.4-10.4); MONOCYTES # (AUTO) 0.7 X10'3 (0-0.9); MONOCYTES % (AUTO) 6.2 % (2-12); NEUTROPHILS # (AUTO) 8.5 X10'3 (1.8-7.7); NEUTROPHILS % (AUTO) 76.3 % (42-75); PLATELET COUNT 505 X10'3 (140-440); RED BLOOD COUNT 2.93 X10'6 (4.70-6.10); RED CELL DISTRIBUTION WIDTH 16.8 % (11.5-14.5); WHITE BLOOD COUNT 11.1 X10'3 (4.5-11.0)
[2020-09-27 06:26] LABS: ALANINE AMINOTRANSFERASE 18 U/L (12-78); ALBUMIN 2.3 G/DL (3.4-5.0); ALBUMIN/GLOBULIN RATIO 0.5 (1.1-1.5); ALKALINE PHOSPHATASE 63 IU/L (46-116); ANION GAP 10 (8-16); ASPARTATE AMINO TRANSFERASE 15 U/L (10-37); BILIRUBIN,TOTAL 0.3 MG/DL (0.1-1.0); BLOOD UREA NITROGEN 10 MG/DL (7-18); BUN/CREATININE RATIO 8.3 (5.4-32.0); CALCIUM 8.5 MG/DL (8.5-10.1); CHLORIDE 106 MMOL/L (99-107); CREATININE 1.21 MG/DL (0.60-1.10); GLUCOSE 112 MG/DL (70-104); MAGNESIUM 1.5 MG/DL (1.5-2.4); PHOSPHORUS 4.2 MG/DL (2.3-4.5); POTASSIUM 3.5 MMOL/L (3.5-5.1); SODIUM 141 MMOL/L (135-145); TOTAL CARBON DIOXIDE 24.8 MMOL/L (24-32); TOTAL PROTEIN 7.2 G/DL (6.4-8.2); eGFR 63 ML/MIN
--- NOTE | 2020-09-27 06:33 | NUR ---
Report given to Yeny CORREA.
[2020-09-27] MEDS: aspirin 81mg tablet.DR PO SCH (07:47)
[2020-09-27] MEDS: cilostazol 50mg tablet PO SCH ×2 (07:47→19:21)
[2020-09-27] MEDS: heparin, porcine 5000 units/ml vial SQ SCH ×3 (07:48→19:23)
[2020-09-27] MEDS: lactobacillus rhamnosus 10,000 MMU CELLS/CAPSULE PO SCH ×2 (07:59→19:21)
[2020-09-27] MEDS: K and/or MAG REPLACEMENT MC SCH ×2 (08:00→20:00)
[2020-09-27] MEDS: gabapentin 300mg capsule PO SCH ×3 (08:01→23:48)
[2020-09-27] MEDS: piperacillin/tazo 3.375gm/50ml 50 ML IV SCH ×3 (08:02→23:48)
[2020-09-27] MEDS: pantoprazole 40mg Tablet.DR PO SCH (08:02)
[2020-09-27] MEDS: ciprofloxacin 250mg tablet PO SCH ×2 (08:02→19:21)
[2020-09-27] MEDS: diltiazem CD 180mg cap (once-daily) PO SCH (08:02)
[2020-09-27 09:04] LABS: PARTIAL THROMBOPLASTIN TIME 30 SECONDS (22-32)
--- NOTE | 2020-09-27 09:30 | NUR ---
Called report to Raúl CORREA in Recovery all questions answered. Patient Blood glucose was 107 for pre op
[2020-09-27] MEDS ORDERED: ondansetron/PF 4mg/2ml inj IV PRN (10:00)
[2020-09-27] MEDS ORDERED: proCHLORperazine 10 MG/2 ml inj IV PRN (10:00)
[2020-09-27] MEDS ORDERED: morphine 2 MG/ML inj. syringe IV PRN (10:00)
[2020-09-27] MEDS ORDERED: morphine 4 MG/ML inj SYRINge IV PRN (10:00)
[2020-09-27] MEDS ORDERED: meperidine/PF 25mg/ml syringe IV PRN ×3 (10:00)
[2020-09-27] MEDS ORDERED: ringers solution, lacted 1,000 ML IV SCH (10:00)
[2020-09-27] MEDS ORDERED: fentaNYL /PF 50mcg/ml 5ml ampule ONE (10:22)
[2020-09-27] MEDS ORDERED: midazolam 2 mg/2 ml injection ONE (10:22)
[2020-09-27] MEDS ORDERED: propofol inj 20 ML IV ONE (10:25)
[2020-09-27] MEDS ORDERED: LIDOcaine 2% (20mg/ml) 5ml vial ONE (10:25)
[2020-09-27] MEDS ORDERED: ketamine 50mg/5ml syringe ONE (10:27)
[2020-09-27] MEDS ORDERED: ketamine 50 mg/ml 10ml vial ONE (10:34)
[2020-09-27] MEDS ORDERED: phenylephrine 10mg/ml inj. ONE (11:03)
[2020-09-27] MEDS ORDERED: sevoflurane 250ml liquid IH ONE (11:03)
[2020-09-27] MEDS ORDERED: meperidine/PF 50mg/ml syringe ONE (11:34)
[2020-09-27] MEDS ORDERED: albumin (Human) 5% 250ml 250 ML IV ONE (12:15)
--- NOTE | 2020-09-27 12:35 | NUR ---
Received from OR via BED, accompanied by Anesthesiologist DR CANNON-- and report given by Anesthesiolgist. PATIENT A&OX4, DENIES PAIN, V/S WNL, NEUROVASCULAR CHECKS INTACT, 20G PIV LUE, 22G RUE, RIGHT AKA STUMP DRESSING CDI
--- NOTE | 2020-09-27 13:25 | NUR ---
PATIENT A&OX4, DENIES PAIN, V/S WNL, NEUROVASCULAR CHECKS INTACT, 20G PIV LUE, 22G RUE, RIGHT AKA STUMP DRESSING CDI. PATIENT TAKEN TO 350B WITH ALL BELONGINGS AND HOOKED UP TO MONITORS IN ROOM AND REPORT GIVEN TO ALKA CORREA WHO HAS TAKEN OVER PATIENT CARE.
[2020-09-27] MEDS: normal saline 1000ml 1,000 ML IV SCH (13:34)
--- NOTE | 2020-09-27 15:55 | NUR ---
PAGER ID: [phone] MESSAGE: Eyny-Surg [id number] Re: Randy 350B back from surgery please call re: BP is running 150 SBP to 170
[2020-09-27] MEDS ORDERED: amLODIPine 5mg tablet PO ONE (16:40)
--- NOTE | 2020-09-27 18:30 | NUR ---
Problems reprioritized. Patient report given, questions answered & plan of care reviewed with Terence CORREA.
[2020-09-27] MEDS: atorvastatin 20mg tablet PO SCH (20:43)
[2020-09-28] VITALS: BP 174/83
[2020-09-28] MEDS: normal saline 1000ml 1,000 ML IV SCH ×2 (01:05→08:38)
[2020-09-28 06:30] VITALS: BP 197/83
[2020-09-28 06:35] LABS: BASOPHILS # (AUTO) 0.1 X10'3 (0-0.2); BASOPHILS % (AUTO) 0.6 % (0-1); EOSINOPHILS # (AUTO) 0.4 X10'3 (0-0.9); EOSINOPHILS % (AUTO) 3.8 % (0-6); HEMOGLOBIN 8.2 g/dl (14.0-17.9); LYMPHOCYTES # (AUTO) 1.5 X10'3 (1.1-4.8); LYMPHOCYTES % (AUTO) 13.2 % (21-51); MEAN CORPUSCULAR HEMOGLOBIN 27.6 PG (27.0-31.0); MEAN CORPUSCULAR HGB CONC 32.6 g/dL (33.0-36.5); MEAN CORPUSCULAR VOLUME 84.5 FL (78-98); MEAN PLATELET VOLUME 6.7 FL (7.4-10.4); MONOCYTES # (AUTO) 0.7 X10'3 (0-0.9); MONOCYTES % (AUTO) 6.6 % (2-12); NEUTROPHILS # (AUTO) 8.5 X10'3 (1.8-7.7); NEUTROPHILS % (AUTO) 75.8 % (42-75); PLATELET COUNT 495 X10'3 (140-440); RED BLOOD COUNT 2.97 X10'6 (4.70-6.10); WHITE BLOOD COUNT 11.1 X10'3 (4.5-11.0)
--- NOTE | 2020-09-28 06:35 | NUR ---
Patient in room BRITNI 350. I have received report from MADELINE Pratt and had the opportunity to ask questions and assume patient care. Addendum: 09/28/20 at 0803 by Madonna Funez RN 06[facility] [id number]
[2020-09-28 07:06] LABS: ALANINE AMINOTRANSFERASE 16 U/L (12-78); ALBUMIN 2.2 G/DL (3.4-5.0); ALBUMIN/GLOBULIN RATIO 0.5 (1.1-1.5); ALKALINE PHOSPHATASE 61 IU/L (46-116); ANION GAP 11 (8-16); ASPARTATE AMINO TRANSFERASE 15 U/L (10-37); BILIRUBIN,TOTAL 0.3 MG/DL (0.1-1.0); BLOOD UREA NITROGEN 8 MG/DL (7-18); BUN/CREATININE RATIO 6.9 (5.4-32.0); CALCIUM 7.9 MG/DL (8.5-10.1); CHLORIDE 105 MMOL/L (99-107); CREATININE 1.16 MG/DL (0.60-1.10); FERRITIN 302 NG/ML (26-388); GLUCOSE 120 MG/DL (70-104); MAGNESIUM 1.5 MG/DL (1.5-2.4); PHOSPHORUS 3.4 MG/DL (2.3-4.5); POTASSIUM 3.7 MMOL/L (3.5-5.1); SODIUM 140 MMOL/L (135-145); TOTAL PROTEIN 6.8 G/DL (6.4-8.2); eGFR 66 ML/MIN
[2020-09-28] MEDS: K and/or MAG REPLACEMENT MC SCH (07:22)
[2020-09-28 07:42] LABS: % IRON SATURATION 10 % (11-46); IRON 14 UG/DL (53-167); TOTAL IRON BINDING CAPACITY 135 UG/DL (259-388)
[2020-09-28] MEDS ORDERED: amLODIPine 5mg tablet PO SCH (08:00)
[2020-09-28] MEDS: cilostazol 50mg tablet PO SCH (08:25)
[2020-09-28] MEDS: aspirin 81mg tablet.DR PO SCH (08:25)
[2020-09-28] MEDS: pantoprazole 40mg Tablet.DR PO SCH (08:25)
[2020-09-28] MEDS: HYDROcodone/acetaminophen 10/325mg tab PO PRN ×3 (08:25→16:22)
[2020-09-28] MEDS: diltiazem CD 180mg cap (once-daily) PO SCH (08:26)
[2020-09-28] MEDS: heparin, porcine 5000 units/ml vial SQ SCH (08:26)
[2020-09-28] MEDS: ciprofloxacin 250mg tablet PO SCH (08:26)
[2020-09-28] MEDS: piperacillin/tazo 3.375gm/50ml 50 ML IV SCH (08:26)
[2020-09-28] MEDS: lactobacillus rhamnosus 10,000 MMU CELLS/CAPSULE PO SCH (08:26)
[2020-09-28] MEDS: gabapentin 300mg capsule PO SCH ×2 (08:26→16:21)
[2020-09-28] MEDS: morphine 2 MG/ML inj. syringe IV PRN ×3 (10:05→18:01)
[2020-09-28 11:00] VITALS: BP 138/74
[2020-09-28 11:31] LABS: OCCULT BLOOD STOOL NEGATIVE (Neg)
--- NOTE | 2020-09-28 17:10 | NUR ---
Report called to [facility] nurse. IV x2 left in place per Elise RN request. Pt has all belongings ready to go with him. [facility] to transfer pt to [facility] this evening.
--- NOTE | 2020-09-28 18:40 | NUR ---
Problems reprioritized. Patient report given, questions answered & plan of care reviewed with MADELINE Pratt.
== END 2020-09-28 19:35 | DRG 792 ==
LOC: ER 09:12 → ED HOLD 13:04 → SUR 3N 18:28
PROVIDERS: ADMIT Family Medicine; ATTEND Family Medicine
PROC: 0JBN0ZZ Excision of Right Lower Leg Subcutaneous Tissue and Fascia, Open Approach (ICD-10-PCS; principal; 2020-09-26 17:45)
PROC: 0Y6C0Z3 Detachment at Right Upper Leg, Low, Open Approach (ICD-10-PCS; 2020-09-27)
DX: T81.30XA Disruption of wound, unspecified, initial encounter (principal); A41.52 Sepsis due to Pseudomonas; D64.9 Anemia, unspecified; E78.5 Hyperlipidemia, unspecified; G54.6 Phantom limb syndrome with pain; I10 Essential (primary) hypertension; I73.9 Peripheral vascular disease, unspecified; K21.9 Gastro-esophageal reflux disease without esophagitis; N17.9 Acute kidney failure, unspecified; Y83.5 Amputation of limb(s) as the cause of abnormal reaction of the patient, or of later complication, without mention of misadventure at the time of the procedure; Z79.82 Long term (current) use of aspirin; Z79.899 Other long term (current) drug therapy; Z87.891 Personal history of nicotine dependence; I99.8 Other disorder of circulatory system; Z20.822 Contact with and (suspected) exposure to COVID-19
CPT/HCPCS: 36415; 71045; 80053; 80061; 81003; 82272; 82728; 82948; 83036; 83540; 83550; 83605; 83735; 84100; 84145; 85025; 85610; 85730; 86885; 86900; 86901; 87040; 87070; 87075; 87081; 87102; 87635; 93005; 96374; 97110; 97116; 97161; 97530; 99285; A4215; A4618; A6223; A6253; A6446; A6449; A6454; A7000; G0378; J1170; J1644; J2001; J2175; J2250; J2270; J2370; J2405; J2543; J2704; J3010; J3490; J7030; J7120; P9045

== ENCOUNTER → 2020-10-29 | Outpatient (CLI) | payer MEDICAID ==
[~2020-10-29] MED LIST changes: +ASPI-611 PO; +CIPR-259 PO; -CLOP75TA34 PO; +GABA600T13 PO; +IRON-32 PO; +LACT1CAP65 PO; +OMEP20CA15 PO
== END | disposition home or self-care (01) ==
LOC: WOUND CARE 11:20
PROVIDERS: ATTEND Nurse Practitioner
DX: T86.828 Other complications of skin graft (allograft) (autograft) (principal); T81.89XD Other complications of procedures, not elsewhere classified, subsequent encounter; E11.622 Type 2 diabetes mellitus with other skin ulcer; L98.491 Non-pressure chronic ulcer of skin of other sites limited to breakdown of skin; L97.221 Non-pressure chronic ulcer of left calf limited to breakdown of skin; L97.112 Non-pressure chronic ulcer of right thigh with fat layer exposed; L97.122 Non-pressure chronic ulcer of left thigh with fat layer exposed; E11.65 Type 2 diabetes mellitus with hyperglycemia; E11.52 Type 2 diabetes mellitus with diabetic peripheral angiopathy with gangrene; E11.22 Type 2 diabetes mellitus with diabetic chronic kidney disease; I12.9 Hypertensive chronic kidney disease with stage 1 through stage 4 chronic kidney disease, or unspecified chronic kidney disease; N18.30 Chronic kidney disease, stage 3 unspecified; G89.29 Other chronic pain; M54.9 Dorsalgia, unspecified; E78.5 Hyperlipidemia, unspecified; I74.5 Embolism and thrombosis of iliac artery; Z87.891 Personal history of nicotine dependence; Z95.1 Presence of aortocoronary bypass graft; Y83.2 Surgical operation with anastomosis, bypass or graft as the cause of abnormal reaction of the patient, or of later complication, without mention of misadventure at the time of the procedure; Y83.8 Other surgical procedures as the cause of abnormal reaction of the patient, or of later complication, without mention of misadventure at the time of the procedure
CPT/HCPCS: 11042